=== PATIENT | male | born 1950 | race Caucasian/White ===

== ENCOUNTER → 2017-06-28 | Outpatient (CLI) | payer BC ==
[2017-06-28 07:33] LABS: HCT 45.7 % (39.0-53.0); HGB 15.2 gm/dL (13.0-17.5); MCH 28.7 pg (25.0-35.0); MCHC 33.3 g/dL (31.0-37.0); MCV 86.2 fL (80.0-100.0); Mean Platelet Volume 8.4; Platelet Count 186 k/uL (150-450); RDW 13.8 % (11.5-15.5); WBC 6.4 k/uL (3.8-10.6)
[2017-06-28 09:43] LABS: ALT 43 U/L (21-72); AST 22 U/L (17-59); Alkaline Phosphatase 54 U/L (38-126); Anion Gap 9 mmol/L; Blood Urea Nitrogen 19 mg/dL (9-20); Calcium 9.6 mg/dL (8.4-10.2); Carbon Dioxide 28 mmol/L (22-30); Chloride 107 mmol/L (98-107); Cholesterol 212 mg/dL (<200); Glucose 104 mg/dL (74-99); HDL Cholesterol 32 mg/dL (40-60); LDL Cholesterol,Calculated 150 mg/dL (0-99); Potassium 4.9 mmol/L (3.5-5.1); Sodium 144 mmol/L (137-145); Total Bilirubin 0.3 mg/dL (0.2-1.3); Total Protein 6.7 g/dL (6.3-8.2); Triglycerides 151 mg/dL (<150)
[2017-06-28 10:13] LABS: PSA Annual Screen 1.75 ng/mL (0.00-4.00)
[2017-06-28 11:23] LABS: Hepatitis A Antibody IgM Non-Reactive (Non-Reactive); Hepatitis B Core IgM Non-Reactive (Non-Reactive)
== END | disposition home or self-care (01) ==
LOC: LABWHC1 07:09
PROVIDERS: ATTEND Internal Medicine
DX: E78.5 Hyperlipidemia, unspecified (principal); I10 Essential (primary) hypertension; Z11.59 Encounter for screening for other viral diseases; Z12.5 Encounter for screening for malignant neoplasm of prostate
CPT/HCPCS: 80061; 80053; 80074; 85027; 36415; G0103

== ENCOUNTER → 2018-03-05 | Outpatient (CLI) | payer BC | END | disposition home or self-care (01) | LOC: LABWHC1 10:42 | PROVIDERS: ATTEND Orthopaedic Surgery | DX: Z01.812 Encounter for preprocedural laboratory examination (principal) | CPT/HCPCS: 87070 ==

== ENCOUNTER 2018-03-16 05:40 | Day surgery (SDC) | payer BC ==
[2018-03-06 15:30] VITALS: BMI 32.6
--- NOTE | 2018-03-15 09:40 | HP ---
HISTORY AND PHYSICAL REASON FOR ADMISSION: Surgery 03/16/2018 Marlo Fonseca is a 67-year-old patient seen with symptomatic left knee osteoarthritis. After having treatment options discussed, he elected to proceed with left total knee arthroplasty. Consent regarding the procedure was obtained. Medical clearance provided by Dr. Santiago. PAST MEDICAL HISTORY: Hypertension, gastroesophageal reflux disease. PAST SURGICAL HISTORY: Bilateral shoulder arthroscopy. MEDICATIONS: Atenolol, Prilosec. ALLERGIES: None reported. SOCIAL HISTORY: Patient denies current tobacco use. PHYSICAL EXAMINATION: Evaluation of the left knee range of motion 0 to 120 degrees. There is tenderness along the medial joint line, crepitus along the medial patellofemoral compartments with range of motion. Pain with patellofemoral compression. Ligaments stable. Hip rotation without pain. Distal neurovascular exam intact. RADIOGRAPHS: Left knee radiographs reveal severe medial moderate patellofemoral compartment osteoarthritis. IMPRESSION: 1. Left knee osteoarthritis. 2. Hypertension. PLAN: Left total knee arthroplasty. Surgery scheduled for 03/16/2018. MMODL / IJN: [id number] /
[~2018-03-16 05:40] MED LIST: ACETAMINOPHEN TAB 500 MG TAB PO ONE; DEXAMETHASONE SOD PHOSPHATE 10 MG/ML 1 ML VIAL IV ONE; LACTATED RINGERS 1,000 ML IV SCH; LIDOCAINE 1% 20 ML VIAL (10MG/ML) FOR IV START INTRADERMA PRN; MELOXICAM 7.5 MG TAB PO ONE; MIDAZOLAM 2 MG/2 ML VIAL IV PRN; ONDANSETRON 4 MG/2 ML VIAL IVP ONE; TRANEXAMIC ACID 1,000 MG in SODIUM CHLORIDE 0.9% 50 ML IVPB ONE; ceFAZolin IN SWFI 2 GM/20 ML SYRINGE IVP ONE; fentaNYL (PF) 50 MCG/ML 2 ML AMP IV PRN
[2018-03-16] MEDS ORDERED: MIDAZOLAM 2 MG/2 ML VIAL IV ONE (06:27)
[2018-03-16] MEDS ORDERED: MIDAZOLAM 2 MG/2 ML VIAL ONE ×2 (06:51→07:30)
[2018-03-16] MEDS ORDERED: ONDANSETRON 4 MG/2 ML VIAL ONE (07:24)
[2018-03-16] MEDS ORDERED: ONDANSETRON 4 MG/2 ML VIAL IVP ONE ×2 (07:25→11:53)
[2018-03-16] MEDS ORDERED: DEXAMETHASONE SOD PHOSPHATE 10 MG/ML 1 ML VIAL IV ONE (07:25)
[2018-03-16] MEDS ORDERED: HYDROmorphone (PF) 1 MG/ML ONE (07:30)
[2018-03-16] MEDS ORDERED: SODIUM CHLORIDE 0.9% 100 ML BAG ONE (07:30)
[2018-03-16] MEDS ORDERED: TRANEXAMIC ACID 1,000 MG/10 ML VIAL ONE (07:30)
[2018-03-16] MEDS ORDERED: fentaNYL (PF) 50 MCG/ML 2 ML AMP ONE (07:30)
[2018-03-16] MEDS ORDERED: PROPOFOL 10 MG/ML 20 ML VIAL IV ONE (07:30)
[2018-03-16] MEDS ORDERED: SUCCINYLCHOLINE CHLORIDE 100 MG/5 ML SYR IV ONE (07:30)
[2018-03-16] MEDS ORDERED: DEXAMETHASONE SOD PHOS (MDV) 100 MG/10 ML VIAL ONE (07:30)
[2018-03-16] MEDS ORDERED: LIDOCAINE 1% INJ 10MG/ML (20 ML MDV) ONE (07:30)
[2018-03-16] MEDS ORDERED: ROPIVACAINE 246.25 MG, EPINEPHrine 0.5 MG, KETOROLAC 30 MG, cloNIDine HCL/PF 80 MCG, WA... MISCELLANE ONE ×5 (07:55)
[2018-03-16] MEDS ORDERED: ceFAZolin 3,000 MG in SODIUM CHLORIDE 0.9% IRRIGATIO 3,000 ML IRRIGATION ONE (07:59)
[2018-03-16] MEDS ORDERED: LACTATED RINGERS 1,000 ML IV ONE ×2 (09:07→12:13)
[2018-03-16] MEDS ORDERED: ROPIVACAINE 1,100 MG, SODIUM CHLORIDE 0.9% 330 ML MISCELLANE PRN ×2 (09:14)
[2018-03-16] MEDS ORDERED: HYDROcodone/APAP 7.5-325MG 1 EACH TAB PO PRN (09:27)
[2018-03-16] MEDS ORDERED: HYDROmorphone 1 MG/ML 1 ML SYRINGE IVP PRN ×3 (09:27)
[2018-03-16] MEDS ORDERED: NALOXONE 0.4 MG/ML 1 ML VIAL IV PRN (09:27)
[2018-03-16] MEDS ORDERED: ONDANSETRON 4 MG/2 ML VIAL IVP PRN (09:27)
--- NOTE | 2018-03-16 09:27 | P.OP ---
Date of Procedure: 03/16/18 Preoperative Diagnosis: Left knee osteoarthritis Postoperative Diagnosis: Left knee osteoarthritis Procedure(s) Performed: Left total knee arthroplasty Implants: 1. [place] persona size 10 left cruciate retaining cemented femur 2. [place] persona size G left cemented tibial baseplate 3. [place] persona 10 mm medial congruent polyethylene tibial insert 4. [place] persona 38 mm all polyethylene cemented patella Anesthesia: GETA, regional (Adductor canal block), local Surgeon: Vijay Baldwin [employer] #1: Lobito Watson Estimated Blood Loss (ml): 50 Pathology: other (Bone) Condition: stable Disposition: PACU Indications for Procedure: 67-year-old patient seen with progressive left knee pain. After treatment options were discussed, he elected to proceed with total knee arthroplasty. Operative Findings: see description of procedure Description of Procedure: Patient was taken to the operative suite after having an adductor canal catheter placed by the department of anesthesia for postoperative pain management. Patient underwent a spinal anesthetic by the department of anesthesia. Patient was given preoperative IV intake antibiotics and TXA. A well-padded tourniquet was placed about the left lower extremity. The lower extremity was then prepped and draped in the normal sterile orthopedic fashion. The extremity was elevated, a tourniquet was insufflated to 300. A standard anterior incision was made sharply through skin. Dissection was taken down through the subcutaneous soft tissues down to the extensor mechanism. A medial arthrotomy was performed, patella was everted and knee was flexed. There was advanced osteoarthritis noted. I introduced my distal intramedullary femoral drill. I then introduced the distal femoral cutting jig. Jose COLES secured the cutting jig with 2 pins. I held retractors in position while Jose COLES performed the distal femoral resection through the guide area we now removed her distal femoral cutting guide. We now placed our 4-in-1 femoral cutting block and positioned and it was secured with 2 pins by Jose COLES while I held the block in position. The distal femoral finishing was now completed. A proximal tibial cutting guide was positioned. I held the guide in the appropriate position with both hands well Jose COLES inserted stabilizing pins into the guide. Proximal tibial cut was made. We now placed a trial femoral component into position, along with an appropriate size tibial tray and insert. We now took the knee through range of motion and had full extension good flexion and good overall soft tissue balance noted. The patella was everted and stabilized with 2 towel clips held by Jose COLES while I performed a flush with patellar quad tendon utilizing a fresh sawblade. We templated the patella, appropriate drill holes were made. An appropriate trial patella was positioned, knee was taken through full range of motion with the patella tracking very nicely. The trial patella was removed. Drill holes were made through the femoral component. All trial components were removed after marking off the appropriate rotation of the tibia. Retractors were now positioned along the proximal tibia. An appropriate keel punch was made with the appropriate size tibial guide by myself on Jose COLES assisted by holding retractors. At this point appropriate size implants were chosen and opened. The joint was irrigated copiously with pulse lavage mechanical irrigation. The posterior capsule was infiltrated with local analgesic. The wound was irrigated with pulse lavage mechanical irrigation. We mixed antibiotic methylmethacrylate. We placed the knee into flexion. We placed multiple retractors assisted by Jose COLES to expose the proximal tibia. Once the methyl methacrylate was ready, the tibial component was cemented into place removing any excess methylmethacrylate form by both myself and Jose COLES. The femoral component was cemented into place removing the removing any excess methylmethacrylate performed by both myself and Jose COLES. We then inserted the appropriate size polyethylene tibial insert. We made sure that it was locked into position. We took the knee into full extension, and then back in a flexion making sure we had removed any excess methylmethacrylate. The patellar component was then cemented down and secured with clamp. Excess methylmethacrylate removed. We kept the knee in full extension, patellar clamp in position until methylmethacrylate had hardened. Once it had hardened the patellar clamp was removed. The knee was taken through full range of motion. The patella tracked nicely. There was good soft tissue balancing. The tourniquet was now released. Additional hemostasis was achieved via electrocautery. A second gram of TXA was given. The wound again was irrigated with pulse lavage mechanical irrigation. The superficial soft tissues were infiltrated local analgesic. The extensor mechanism was repaired with Vicryl. We checked the repair with range of motion and it was stable. The subcutaneous soft tissues were repaired with Vicryl in layers. The skin was approximated with pernio/Dermabond. Sterile dressings were applied followed by loose web roll and Braeden bandage. The patient was transferred to a bed, and taken to recovery in stable and satisfactory condition. Jose COLES assisted with this complex procedure.
[2018-03-16] MEDS ORDERED: LACTATED RINGERS 1,000 ML IV SCH (09:30)
[2018-03-16 09:40] VITALS: TEMP 96.8
--- NOTE | 2018-03-16 10:33 | XR ---
EXAMINATION TYPE: XR knee limited LT DATE OF EXAM: 03/16/2018 CLINICAL HISTORY: Left knee pain and arthritis status post total knee replacement. TECHNIQUE: Portable AP and crosstable lateral views of the left knee are obtained immediately postop eratively. COMPARISON: None FINDINGS: Metallic hardware from total left knee arthroplasty is seen and appears satisfactory in al ignment and position. There is evidence of recent surgery with diffuse subcutaneous gas and soft tis nicolas swelling drain noted. IMPRESSION: METALLIC HARDWARE FROM TOTAL LEFT KNEE ARTHROPLASTY IS SATISFACTORY IN ALIGNMENT.
[2018-03-16] MEDS ORDERED: ceFAZolin IN SWFI 2 GM/20 ML SYRINGE IVP ONE (11:00)
--- NOTE | 2018-03-16 13:00 | P.ONQ ---
Anesthesiology Proc Note - PNB - Peripheral Nerve Block Performed Adductor Canal Infusion Time Out Performed: Yes Procedure Start Time: 06:58 Procedure Stop Time: 07:20 Indication: Acute Post-Operative Pain, Requested by physician Sedation Type: Sedate with meaningful contact maintained Preparation: Sterile Dressing Position: Supine Catheter: Indwelling Needle Types: On-Q Needle Size: 100mm (4") Needle Gauge: 21 Technique: Ultrasound Injectate: 0.5% Ropivacaine (see comment for volume) (ropi .5% 30cc) Blood Aspirated: No Pain Paresthesia on Injection Noted: No Resistance on Injection: Normal Events: Uneventful and Well Tolerated
[2018-03-16] MEDS ORDERED: PROMETHAZINE INJ 25 MG/ML 1 ML VIAL IVPB ONE (13:21)
[2018-03-16 14:14] VITALS: BP 144/81; PULSE 78; RESP 16
== END 2018-03-16 15:01 | disposition home health service (06) ==
LOC: OR 05:40
PROVIDERS: ATTEND Orthopaedic Surgery
DX: M17.12 Unilateral primary osteoarthritis, left knee (principal); I10 Essential (primary) hypertension; Z96.652 Presence of left artificial knee joint; K21.9 Gastro-esophageal reflux disease without esophagitis; Z79.899 Other long term (current) drug therapy; Z87.891 Personal history of nicotine dependence; Z87.442 Personal history of urinary calculi; Z79.82 Long term (current) use of aspirin; H91.90 Unspecified hearing loss, unspecified ear
CPT/HCPCS: 97161; 88300; 73560; 27446; C1776; C1713; C1772; J2250; J1100 ×2; J2550; J2405; J0690 ×2; J2001; J3010; J1170; J0330; J2704

== ENCOUNTER → 2018-03-19 | Outpatient (CLI) | payer BC ==
--- NOTE | 2018-03-19 11:00 | US ---
EXAMINATION TYPE: US venous doppler duplex LE LT DATE OF EXAM: 03/19/2018 10:18 AM COMPARISON: NONE CLINICAL HISTORY: Left Leg Swelling R22.42, M79.662 Left Leg Pain. s/p total knee 3 days ago SIDE PERFORMED: Left TECHNIQUE: The lower extremity deep venous system is examined utilizing real time linear array sonog maile with graded compression, doppler sonography and color-flow sonography. VESSELS IMAGED: External Iliac Vein (EIV) Common Femoral Vein Deep Femoral Vein Greater Saphenous Vein * Femoral Vein Popliteal Vein Small Saphenous Vein * Proximal Calf Veins (* superficial vessels) Left Leg: Negative for DVT Grayscale, color doppler, spectral doppler imaging performed of the deep veins of the left lower extr emity. There is normal flow, compressibility, vascular waveforms. IMPRESSION: No sonographic evidence of deep venous thrombosis within the left lower extremity.
== END | disposition home or self-care (01) ==
LOC: RADUSWWP 09:45
PROVIDERS: ATTEND Orthopaedic Surgery
DX: M79.662 Pain in left lower leg (principal); R22.42 Localized swelling, mass and lump, left lower limb

== ENCOUNTER 2018-05-25 08:02 | Day surgery (SDC) | payer BC ==
[2018-05-20 10:05] VITALS: BMI 31.9
--- NOTE | 2018-05-24 17:42 | HP ---
HISTORY AND PHYSICAL Surgery is scheduled for 05/25/2018. Marlo Fonseca is a 68-year-old patient seen with progressive left knee pain. Treatment options were discussed with him. He elected to proceed with left total knee arthroplasty. Consent was obtained. Preoperative clearance had been previously provided. PAST MEDICAL HISTORY: Hypertension, gastroesophageal reflux disease. PAST SURGICAL HISTORY: Left total knee arthroplasty. MEDICATIONS: Atenolol, Prilosec. ALLERGIES: None. SOCIAL HISTORY: Patient denies current tobacco use. PHYSICAL EXAMINATION: Evaluation of the right knee: His range of motion is -2 to 120 degrees. Tenderness along the medial joint line. Crepitus along the medial patellofemoral compartment with range of motion. Ligaments stable. Hip rotation without pain. Distal neurovascular exam is intact. RADIOGRAPHS: Radiographs of the right knee reveal severe medial moderate patellofemoral compartment osteoarthritis. IMPRESSION: 1. Right knee osteoarthritis. 2. Hypertension. PLAN: Right total knee arthroplasty. MMODL / IJN: [id number] /
[~2018-05-25 08:02] MED LIST changes: -LIDOCAINE 1% 20 ML VIAL (10MG/ML) FOR IV START INTRADERMA PRN; +MIDAZOLAM (PF) 2 MG/2 ML VIAL IV PRN; -MIDAZOLAM 2 MG/2 ML VIAL IV PRN; -fentaNYL (PF) 50 MCG/ML 2 ML AMP IV PRN
[2018-05-25] MEDS ORDERED: LIDOCAINE 1% 20 ML VIAL (10MG/ML) FOR IV START INTRADERMA ONE (08:47)
[2018-05-25] MEDS ORDERED: PROPOFOL 10 MG/ML 20 ML VIAL IV ONE (09:47)
[2018-05-25] MEDS ORDERED: PHENYLEPHRINE-0.9% NACL SYG 1 MG/10 ML SYRINGE ONE (09:47)
[2018-05-25] MEDS ORDERED: MIDAZOLAM 2 MG/2 ML VIAL ONE (09:47)
[2018-05-25] MEDS ORDERED: fentaNYL (PF) 50 MCG/ML 2 ML AMP ONE (09:47)
[2018-05-25] MEDS ORDERED: SODIUM CHLORIDE 0.9% 100 ML BAG ONE (09:47)
[2018-05-25] MEDS ORDERED: LIDOCAINE 1% INJ 10MG/ML (20 ML MDV) ONE (09:47)
[2018-05-25] MEDS ORDERED: TRANEXAMIC ACID 1,000 MG/10 ML VIAL ONE (09:47)
[2018-05-25] MEDS ORDERED: SUCCINYLCHOLINE CHLORIDE 100 MG/5 ML SYR IV ONE (09:47)
--- NOTE | 2018-05-25 09:47 | P.ONQ ---
Anesthesiology Proc Note - PNB - Peripheral Nerve Block Performed Right Adductor Canal Infusion Time Out Performed: Yes Procedure Start Time: : Procedure Stop Time: :16 Indication: Acute Post-Operative Pain, Requested by physician Preparation: Sterile Dressing Position: Supine Catheter: Indwelling Needle Types: On-Q Needle Size: 100mm (4") Needle Gauge: 21 Technique: Ultrasound Injectate: 0.5% Ropivacaine (see comment for volume) (ropi .5% 20cc) Blood Aspirated: No Pain Paresthesia on Injection Noted: No Resistance on Injection: Normal Events: Uneventful and Well Tolerated
[2018-05-25] MEDS ORDERED: ROPIVACAINE 246.25 MG, EPINEPHrine 0.5 MG, KETOROLAC 30 MG, cloNIDine HCL/PF 80 MCG, WA... MISCELLANE ONE ×5 (09:51)
[2018-05-25] MEDS ORDERED: ceFAZolin 3,000 MG in SODIUM CHLORIDE 0.9% IRRIGATIO 3,000 ML IRRIGATION ONE (10:20)
[2018-05-25] MEDS ORDERED: LACTATED RINGERS 1,000 ML IV ONE ×2 (11:32)
[2018-05-25] MEDS ORDERED: ONDANSETRON 4 MG/2 ML VIAL IVP PRN (11:45)
[2018-05-25] MEDS ORDERED: LACTATED RINGERS 1,000 ML IV SCH (11:45)
[2018-05-25] MEDS ORDERED: HYDROcodone/APAP 7.5-325MG 1 EACH TAB PO PRN (11:45)
[2018-05-25] MEDS ORDERED: NALOXONE 0.4 MG/ML 1 ML VIAL IV PRN (11:45)
[2018-05-25] MEDS ORDERED: HYDROcodone/APAP 5-325MG 1 EACH TAB PO PRN (11:45)
[2018-05-25] MEDS ORDERED: HYDROmorphone 1 MG/ML 1 ML SYRINGE IVP PRN ×2 (11:45)
[2018-05-25] MEDS ORDERED: HYDROmorphone 0.5 MG/0.5 ML SYRINGE IVP PRN (11:45)
--- NOTE | 2018-05-25 11:45 | P.OP ---
Date of Procedure: 05/25/18 Preoperative Diagnosis: Right knee osteoarthritis Postoperative Diagnosis: Right knee osteoarthritis Procedure(s) Performed: Right total knee arthroplasty Implants: 1. [place] persona size 10 cruciate retaining cemented femur 2. [place] persona size G cemented tibial baseplate 3. [place] persona size G/H 11 mm medial congruent polyethylene tibial insert 4. [place] persona 38 mm all polyethylene cemented patella Anesthesia: GETA, regional (Adductor canal catheter) Surgeon: Vijay Baldwin Hand Or Machine Paster #1: Lobito Watson Estimated Blood Loss (ml): 45 Pathology: other (Bone) Condition: stable Disposition: PACU Indications for Procedure: 68-year-old patient seen with progressive right knee pain. After treatment options discussed, he elected to proceed with total knee arthroplasty. Operative Findings: see description of procedure Description of Procedure: Patient was taken to the operative suite after having an adductor canal catheter placed by the department of anesthesia. Patient underwent a general anesthetic by the department of anesthesia. Patient was given preoperative IV intake antibiotics and TXA. A well-padded tourniquet was placed about the right lower extremity. The lower extremity was then prepped and draped in the normal sterile orthopedic fashion. The extremity was elevated, a tourniquet was insufflated to 300. A standard anterior incision was made sharply through skin. Dissection was taken down through the subcutaneous soft tissues down to the extensor mechanism. A medial arthrotomy was performed, patella was everted and knee was flexed. There was advanced osteoarthritis noted. I introduced my distal intramedullary femoral drill. I then introduced the distal femoral cutting jig. Jose COLES secured the cutting jig with 2 pins. I held retractors in position while Jose COLES performed the distal femoral resection through the guide area we now removed her distal femoral cutting guide. We now placed our 4-in-1 femoral cutting block and positioned and it was secured with 2 pins by Jose COLES while I held the block in position. The distal femoral finishing was now completed. A proximal tibial cutting guide was positioned. I held the guide in the appropriate position with both hands well Jose COLES inserted stabilizing pins into the guide. Proximal tibial cut was made. We now placed a trial femoral component into position, along with an appropriate size tibial tray and insert. We now took the knee through range of motion and had full extension good flexion and good overall soft tissue balance noted. The patella was everted and stabilized with 2 towel clips held by Jose COLES while I performed a flush with patellar quad tendon utilizing a fresh sawblade. We templated the patella, appropriate drill holes were made. An appropriate trial patella was positioned, knee was taken through full range of motion with the patella tracking very nicely. The trial patella was removed. Drill holes were made through the femoral component. All trial components were removed after marking off the appropriate rotation of the tibia. Retractors were now positioned along the proximal tibia. An appropriate keel punch was made with the appropriate size tibial guide by myself on Jose COLES assisted by holding retractors. At this point appropriate size implants were chosen and opened. The joint was irrigated copiously with pulse lavage mechanical irrigation. The posterior capsule was infiltrated with local analgesic. The wound was irrigated with pulse lavage mechanical irrigation. We mixed antibiotic methylmethacrylate. We placed the knee into flexion. We placed multiple retractors assisted by Jose COLES to expose the proximal tibia. Once the methyl methacrylate was ready, the tibial component was cemented into place removing any excess methylmethacrylate form by both myself and Jose COLES. The femoral component was cemented into place removing the removing any excess methylmethacrylate performed by both myself and Jose COLES. We then inserted the appropriate size polyethylene tibial insert. We made sure that it was locked into position. We took the knee into full extension, and then back in a flexion making sure we had removed any excess methylmethacrylate. The patellar component was then cemented down and secured with clamp. Excess methylmethacrylate removed. We kept the knee in full extension, patellar clamp in position until methylmethacrylate had hardened. Once it had hardened the patellar clamp was removed. The knee was taken through full range of motion. The patella tracked nicely. There was good soft tissue balancing. The tourniquet was now released. Additional hemostasis was achieved via electrocautery. A second gram of TXA was given. The wound again was irrigated with pulse lavage mechanical irrigation. The superficial soft tissues were infiltrated local analgesic. The extensor mechanism was repaired with Vicryl. We checked the repair with range of motion and it was stable. The subcutaneous soft tissues were repaired with Vicryl in layers. The skin was approximated with pernio/Dermabond. Sterile dressings were applied followed by loose web roll and Braeden bandage. The patient was transferred to a bed, and taken to recovery in stable and satisfactory condition. Jose COLES assisted with this complex procedure.
[2018-05-25 12:04] VITALS: TEMP 97
[2018-05-25] MEDS: ROPIVACAINE 1,100 MG, SODIUM CHLORIDE 0.9% 500 ML 330 ML MISCELLANE PRN ×4 (12:21→12:36)
--- NOTE | 2018-05-25 12:30 | XR ---
EXAMINATION TYPE: XR knee limited RT DATE OF EXAM: 05/25/2018 COMPARISON: NONE TECHNIQUE: Two views submitted HISTORY: Post op FINDINGS: There is a prosthetic knee in near anatomic alignment. There is soft tissue edema and emphysema. IMPRESSION: 1. Postoperative change. Appears in near-anatomic alignment
[2018-05-25] MEDS ORDERED: KETOROLAC 30 MG/ML 1 ML VIAL IVP ONE (12:31)
[2018-05-25] MEDS: HYDROmorphone 1 MG/ML 1 ML SYRINGE IVP PRN ×4 (12:31→12:54)
[2018-05-25] MEDS ORDERED: PROMETHAZINE INJ 25 MG/ML 1 ML VIAL IVPB ONE (14:07)
[2018-05-25] MEDS ORDERED: fentaNYL (PF) 50 MCG/ML 2 ML AMP IVP ONE (15:18)
[2018-05-25 15:52] VITALS: BP 126/84; PULSE 80; RESP 20
[2018-05-25] MEDS ORDERED: ceFAZolin IN SWFI 2 GM/20 ML SYRINGE IVP ONE (16:00)
== END 2018-05-25 16:36 | disposition home health service (06) ==
LOC: OR 08:02
PROVIDERS: ATTEND Orthopaedic Surgery
DX: M17.11 Unilateral primary osteoarthritis, right knee (principal); I10 Essential (primary) hypertension; K21.9 Gastro-esophageal reflux disease without esophagitis; Z79.899 Other long term (current) drug therapy; Z87.891 Personal history of nicotine dependence; E78.5 Hyperlipidemia, unspecified; Z87.442 Personal history of urinary calculi; Z79.82 Long term (current) use of aspirin
CPT/HCPCS: 97116; 97161; 88300; 73560; 27447; C1776; C1713; C1772; J2250 ×2; J1100; J2550; J2405; J0690 ×2; J2001; J3010; J1885; J1170; J2795; J2370; J0330; J2704

== ENCOUNTER → 2018-10-27 | Outpatient (CLI) | payer MEDICARE ==
--- NOTE | 2018-10-27 10:09 | CT ---
"EXAMINATION TYPE: CT abdomen pelvis wo con DATE OF EXAM: 10/27/2018 COMPARISON: None HISTORY: Right flank pain, gross hematuria, and history of prior renal stones. CT DLP: 1115 mGycm Automated exposure control for dose reduction was used. TECHNIQUE: Helical acquisition of images was performed from the lung bases through the pelvis. FINDINGS: LUNG BASES: The heart is enlarged. Subsegmental changes at the lung bases most typical of atelectasis . LIVER/GB: No significant abnormality is appreciated. PANCREAS: No significant abnormality is seen. SPLEEN: No significant abnormality is seen. ADRENALS: No significant abnormality is seen. KIDNEYS: No hydronephrosis or nephrolithiasis. Nonspecific perinephric edema could be seen with infec tious etiology correlate with urinalysis. Bladder is decompressed and limited in assessment. No obvio us calcifications.. ADENOPATHY: None visualized. OSSEOUS STRUCTURES: Hypertrophic and degenerative change of the spine.. BOWEL: Diverticulosis of the colon is noted and there is mild induration of the fat surrounding sigm oid colon. A mild diverticulitis would be the differential diagnosis. OTHER: Fat-containing periumbilical hernia. Aorta of normal caliber with atherosclerotic changes. IMPRESSION: 1. No evidence of hydronephrosis or nephrolithiasis. 2. Diverticulosis of the colon. Could not exclude a mild sigmoid diverticulitis correlate clinically. 3. Small periumbilical hernia. 4. there is thickening of the wall the gastric antrum which is likely related to incomplete distentio n correlate clinically. A Yellow level critical message alert has been initiated for Matt Salomon MD via the [place] [facility] | Critical Results System on 10/27/2018 10:03 AM. This message alert has been sent to Matt thompson MD via the preferences provided by the clinician for the receipt of Radiology Critical Findings. Message ID [id number]."
== END | disposition home or self-care (01) ==
LOC: RADCTMAIN 09:21
PROVIDERS: ATTEND Urology
DX: K57.30 Diverticulosis of large intestine without perforation or abscess without bleeding (principal); K42.9 Umbilical hernia without obstruction or gangrene; K31.89 Other diseases of stomach and duodenum; R31.0 Gross hematuria; Z87.442 Personal history of urinary calculi
CPT/HCPCS: 74176

== ENCOUNTER → 2020-03-08 | Outpatient (CLI) | payer MEDICARE ==
--- NOTE | 2020-03-08 12:27 | MR ---
EXAMINATION TYPE: MR shoulder RT wo con DATE OF EXAM: 03/08/2020 COMPARISON: X-ray 01/26/2020 HISTORY: Rt shoulder pain, Prior rt shoulder surgery TECHNIQUE: Multiplanar, multisequence imaging of the right shoulder is performed without contrast. FINDINGS: Severe arthropathy of the AC joint with reactive marrow changes involving the clavicle and acromion. There is mass effect and impingement of the supraspinatus muscle and tendon. There is no ev idence of through thickness tear or retraction. There is intrasubstance signal involving the undersur face of the infraspinatus tendon measuring approximately 6 mm. There is bursal scuffing involving the distal margin insertion of the supraspinatus tendon. Tiny cysts are seen involving the humeral head likely in the basis of chronic impingement. There is a small cyst inferior to the inferior glenohumeral ligament appears separate from the labrum along the posterior margin of the body of the scapula could represent a small ganglion cyst measurin g 1 cm. The biceps tendon is situated within bicipital groove and there is increased signal surrounding the t endon compatible with tendinosis. Bony labrum are grossly intact by nonarthrogram technique. IMPRESSION: 1. Severe AC joint arthropathy with impingement and tendinosis of the supraspinatus and infraspinatus tendons. There is bursal scuffing along the distal margin insertion of the supraspinatus tendon but no evidence of through thickness tear or retraction. 2. Tendinosis distal margin infraspinatus tendon with 6 mm partial undersurface tear. No through thic kness tear or retraction. 3. Bicipital tendinosis. 4. 1 cm cystic structure along the lower margin of the joint space differential diagnosis includes a small para labral cyst or ganglion cyst. Occult inferior labral tear in the differential diagnosis..
== END | disposition home or self-care (01) ==
LOC: RADMRIMAIN 10:59
PROVIDERS: ATTEND Orthopaedic Surgery
DX: M12.811 Other specific arthropathies, not elsewhere classified, right shoulder (principal)

== ENCOUNTER → 2020-04-10 | Outpatient (CLI) | payer MEDICARE ==
[2020-04-10 09:38] LABS: Basophils # (A) 0.1 k/uL (0-0.2); Basophils % (A) 1 %; Eosinophils # (A) 0.2 k/uL (0-0.7); Eosinophils % (A) 4 %; HCT 47.5 % (39.0-53.0); HGB 15.1 gm/dL (13.0-17.5); Lymphocytes # (A) 1.8 k/uL (1.0-4.8); Lymphocytes % (A) 31 %; MCH 29.5 pg (25.0-35.0); MCHC 31.9 g/dL (31.0-37.0); MCV 92.7 fL (80.0-100.0); Mean Platelet Volume 8.6; Monocytes # (A) 0.3 k/uL (0-1.0); Monocytes % (A) 5 %; Neutrophils # (A) 3.4 k/uL (1.3-7.7); Neutrophils % (A) 58 %; Platelet Count 171 k/uL (150-450); RBC 5.13 m/uL (4.30-5.90); RDW 13.1 % (11.5-15.5); WBC 5.9 k/uL (3.8-10.6)
[2020-04-10 09:49] LABS: Potassium 4.4 mmol/L (3.5-5.1)
== END | disposition home or self-care (01) ==
LOC: LABPAT 08:49
PROVIDERS: ATTEND Orthopaedic Surgery
DX: M75.41 Impingement syndrome of right shoulder (principal)
CPT/HCPCS: 36415; 80051; 85025; 93005

== ENCOUNTER 2020-04-19 05:43 | Day surgery (SDC) | payer MEDICARE ==
[2020-04-18 08:19] VITALS: BMI 33.3
--- NOTE | 2020-04-18 12:22 | HP ---
HISTORY AND PHYSICAL DATE OF SURGERY: 04/19/2020 Marlo Fonseca is a 70-year-old gentleman seen with progressive right shoulder pain. We discussed options for treatment. He elected to proceed with arthroscopy. Consent regarding procedure was obtained. PAST MEDICAL HISTORY: Hypertension, gastroesophageal reflux disease. PAST SURGICAL HISTORY: Right total knee arthroplasty, left total knee arthroplasty. DAILY MEDICATIONS: Aspirin, atenolol, omeprazole. ALLERGIES: None. SOCIAL HISTORY: Denies current tobacco use. PHYSICAL EVALUATION OF THE RIGHT SHOULDER: Flexion is 140 degrees, abduction is 120 degrees, external rotation is 40 degrees with pain and weakness. There is tenderness along the anterior lateral acromion rotator cuff insertion site. Impingement sign is positive at 90 degrees. Drop-arm sign is positive. Distal neurovascular exam is intact. RADIOGRAPHS: Radiographs of the right shoulder revealed a type 2 anterior acromion, cystic changes of the greater tuberosity. An MRI of the right shoulder revealed a partial rotator cuff tendon tear, acromioclavicular joint osteoarthritis and bicipital tendinitis. IMPRESSION: 1. Right shoulder impingement with rotator cuff tear. 2. Right shoulder acromioclavicular joint osteoarthritis. 3. Right shoulder bicipital tendinitis. 4. Hypertension. 5. Gastroesophageal reflux disease. PLAN: Right shoulder arthroscopy, subacromial decompression, arthroscopic rotator cuff repair, biceps tendon release, Jhonny procedure and debridement. MMODL / IJN: [id number] /
[~2020-04-19 05:43] MED LIST changes: -ACETAMINOPHEN TAB 500 MG TAB PO ONE; -DEXAMETHASONE SOD PHOSPHATE 10 MG/ML 1 ML VIAL IV ONE; +LIDOCAINE 1% (10MG/ML) FOR IV START INTRADERMA PRN; -MELOXICAM 7.5 MG TAB PO ONE; -MIDAZOLAM (PF) 2 MG/2 ML VIAL IV PRN; +MIDAZOLAM 2 MG/2 ML VIAL IV PRN; -TRANEXAMIC ACID 1,000 MG in SODIUM CHLORIDE 0.9% 50 ML IVPB ONE; -ceFAZolin IN SWFI 2 GM/20 ML SYRINGE IVP ONE; +fentaNYL (PF) 50 MCG/ML 2 ML AMP IVP PRN
[2020-04-19] MEDS ORDERED: DEXAMETHASONE SOD PHOSPHATE 4 MG/ML 1 ML VIAL IVP ONE (06:42)
[2020-04-19 07:07] VITALS: RESP 16
[2020-04-19] MEDS ORDERED: MIDAZOLAM 2 MG/2 ML VIAL ONE (07:24)
[2020-04-19] MEDS ORDERED: LIDOCAINE 1% INJ 10MG/ML (20 ML MDV) ONE (07:24)
[2020-04-19] MEDS ORDERED: ePHEDrine SULFATE/0.9% NACL/PF 50 MG/5 ML SYRINGE IV ONE (07:24)
[2020-04-19] MEDS ORDERED: ROPIVACAINE 5 MG/ML 30 ML VIAL ONE (07:24)
[2020-04-19] MEDS ORDERED: DEXAMETHASONE SOD PHOSPHATE 4 MG/ML 1 ML VIAL ONE (07:24)
[2020-04-19] MEDS ORDERED: SUCCINYLCHOLINE CHLORIDE 100 MG/5 ML SYR IV ONE (07:24)
[2020-04-19] MEDS ORDERED: PROPOFOL 10 MG/ML 20 ML VIAL IV ONE (07:24)
--- NOTE | 2020-04-19 08:40 | P.ANPRN ---
Procedure Note - Anesthesia - Nerve Block Performed Right Interscalene Time Out Performed: Yes (06:50) Date of Procedure: 04/19/20 Procedure Start Time: :50 Procedure Stop Time: 07:06 Location of Patient: PreOp Indication: Acute Post-Operative Pain, Requested by Surgeon (Dr Baldwin) Sedation Type: Sedate with meaningful contact maintained Preparation: Sterile Prep Position: Supine Catheter: None Needle Types: Pajunk Needle Gauge: Other (see comment) (22g) Ultrasound used to visualize needle placement: Yes Ultrasound used to observe medication spread: Yes Injectate: 0.5% Ropivacaine (see comment for volume) (20cc + Decadron 4mg) Blood Aspirated: No Pain Paresthesia on Injection Noted: No Resistance on Injection: Normal Image Stored and Saved: Yes Events: Uneventful and Well Tolerated
[2020-04-19 09:13] VITALS: TEMP 96.9
--- NOTE | 2020-04-19 09:20 | P.OP ---
Date of Procedure: 04/19/20 Preoperative Diagnosis: Right shoulder impingement Postoperative Diagnosis: 1. Right shoulder rotator cuff tear 2. Right shoulder impingement 3. Right shoulder acromioclavicular joint osteoarthritis 4. Right shoulder partial long head biceps tendon tear 5. Right shoulder superficial labral tear 6. 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 Right shoulder arthroscopic rotator cuff repair 2. Right shoulder arthroscopic subacromial decompression 3. Right shoulder arthroscopic Jhonny procedure 4. Right shoulder arthroscopic biceps tenotomy 5. Right shoulder arthroscopic debridement labral tear Implants: 14.75 Arthrex a lock anchor Anesthesia: GETA, regional (Interscalene block) Surgeon: Vijay Baldwin Personnel Coordinator #1: Lobito Watson Estimated Blood Loss (ml): 11 Pathology: none sent Condition: stable Disposition: PACU Indications for Procedure: 70-year-old gentleman seen with progressive right shoulder pain. After treatment options were discussed, he elected to proceed with arthroscopy. Operative Findings: See description of procedure Description of Procedure: Patient underwent an interscalene block by department of anesthesia. The patient was then taken to the operative suite. The patient underwent a general anesthetic by the department of anesthesia. The patient was placed into a lateral position and secured. There was appropriate padding of the bony prominence. Right shoulder was then prepped and draped in normal sterile orthopedic fashion. We placed the extremity in 10 pounds of longitudinal traction. A posterior incision was now made for a posterior working portal site. The trocar and cannula were inserted into the glenohumeral joint. Arthroscopy was initiated. Spinal needle was now inserted anteriorly, to ascertain the anterior working portal site. An incision was now made in that area, a trocar was inserted followed by a probe. There were grade 3 chondromalacia changes of the glenoid fossa. There was partial tearing and hyperemia long head biceps tendon. There was some superficial tearing of the superior and anterior labrum. I performed an arthroscopic biceps tenotomy. I debrided the labral tear. The residual labrum was probed and found to be stable. Instruments were now removed from glenohumeral jointB Utilizing the posterior working portal site, the trocar and cannula were inserted into the subacromial space. Arthroscopy initiated. I made an incision 2 fingerbreadths lateral to the acromion. I introduced my trocar followed by my ArthroCare ablator. I now began ablating thick subacromial bursal tissue, which exposed the undersurface of the anterior acromion. There was diminished subacromial space. There was a very prominent anterior acromion. A motorized bur was introduced and a subacromial decompression was performed. I also excised some osteophytes off the inferior aspect of the distal clavicle. The AC joint was visualized and noted to be fairly arthritic. The motorized bur was introduced in the anterior portal site and a Jhonny procedure was performed without difficulty, decompressing the AC joint nicely. I turned my attention to the rotator cuff. There appeared be some partial tearing along the distal supraspinatus. Upon probing area there was evidence for a full-thickness perforation I now introduced a motorized shaver and debrided the margins gained down to stable tendon tissue. The defect measured 1.5 cm. I abraded the footprint with a motorized bur. I passed 3 everted mattress sutures through good bites of rotator cuff tendon. I punched the hole in the abraded footprint area for insertion of anchor. All 6 limbs of suture were now passed through the eyelet of a 4.75 Arthrex swivel lock anchor. I now introduced the eyelet into the pre-punched hole. I held it in position while Jose COLES tensioned all 6 limbs of suture deployed the anchor with good fixation noted. All residual suture limbs were now clipped. We had good compression of the tendon along the entire footprint. I injected 1 mL Renyte intra-articularly. Instruments now removed from the portal sites. All portal sites were approximated with nylon suture. Sterile dressings were applied followed by a shoulder sling. Lobito COLES assisted in this complex case. The patient was awakened, transferred to a bed, and taken to recovery in stable condition.
[2020-04-19 10:04] VITALS: BP 134/84; PULSE 67
== END 2020-04-19 10:42 | disposition home or self-care (01) ==
LOC: OR 05:43
PROVIDERS: ATTEND Orthopaedic Surgery
DX: M75.121 Complete rotator cuff tear or rupture of right shoulder, not specified as traumatic (principal); M19.011 Primary osteoarthritis, right shoulder; M75.21 Bicipital tendinitis, right shoulder; M25.811 Other specified joint disorders, right shoulder; S43.431A Superior glenoid labrum lesion of right shoulder, initial encounter; M75.41 Impingement syndrome of right shoulder; S46.111A Strain of muscle, fascia and tendon of long head of biceps, right arm, initial encounter; M94.211 Chondromalacia, right shoulder; I10 Essential (primary) hypertension; E78.5 Hyperlipidemia, unspecified; K21.9 Gastro-esophageal reflux disease without esophagitis; Z87.442 Personal history of urinary calculi; Z79.82 Long term (current) use of aspirin; Z79.899 Other long term (current) drug therapy; Z96.653 Presence of artificial knee joint, bilateral
CPT/HCPCS: 64415; 76942; 29824; 29826; 29827; C1713; Q4212; J2250; J1100; J0690; J2405; J2001; J3010; J2795; J0330; J2704

== ENCOUNTER 2020-08-28 14:28 | Day surgery (SDC) | payer MEDICARE ==
[2020-08-24 10:03] VITALS: BMI 33.7
--- NOTE | 2020-08-27 15:07 | HP ---
HISTORY AND PHYSICAL Marlo Fonseca is a 70-year-old gentleman seen with right shoulder adhesive capsulitis and history of previous arthroscopic rotator cuff repair. We discussed options. He elected to proceed with manipulation under anesthesia of the right shoulder with steroid injection. Consent was obtained. PAST MEDICAL HISTORY: Hypertension, gastroesophageal reflux disease. PAST SURGICAL HISTORY: Bilateral total knee arthroplasty, right shoulder arthroscopy. MEDICATIONS: Atenolol, omeprazole, aspirin. ALLERGIES: NONE. SOCIAL HISTORY: Denies current tobacco use. PHYSICAL EXAMINATION: Evaluation of the right shoulder, he has previous well-healed arthroscopic portal sites. He flexes to 140, abduct to 130, external rotation is 30. Distal neurovascular exam is intact. RADIOGRAPHS: Right shoulder radiographs revealed conversion to a flat anterior acromion. IMPRESSION: 1. Right shoulder adhesive capsulitis. 2. History of right shoulder arthroscopic rotator cuff repair. 3. Hypertension. 4. Gastroesophageal reflux disease. PLAN: Manipulation under anesthesia right shoulder with steroid injection. MMODL / IJN: [id number] /
[~2020-08-28 14:28] MED LIST changes: +DEXAMETHASONE SOD PHOSPHATE 4 MG/ML 1 ML VIAL IV ONE; +HYDROmorphone 0.5 MG/0.5 ML SYRINGE IVP PRN; -LIDOCAINE 1% (10MG/ML) FOR IV START INTRADERMA PRN; -MIDAZOLAM 2 MG/2 ML VIAL IV PRN; -fentaNYL (PF) 50 MCG/ML 2 ML AMP IVP PRN
[2020-08-28 14:46] VITALS: TEMP 97.5
[2020-08-28] MEDS ORDERED: HYDROmorphone (PF) 1 MG/ML ONE (15:27)
[2020-08-28] MEDS ORDERED: PROPOFOL 10 MG/ML 20 ML VIAL IV ONE (15:27)
--- NOTE | 2020-08-28 15:36 | P.OP ---
Date of Procedure: 08/28/20 Preoperative Diagnosis: Right shoulder adhesive capsulitis Postoperative Diagnosis: Right shoulder adhesive capsulitis Procedure(s) Performed: Right shoulder manipulation under anesthesia with steroid injection Anesthesia: MAC, local Surgeon: Vijay Baldwin Estimated Blood Loss (ml): 0 Pathology: none sent Condition: stable Disposition: PACU Indications for Procedure: 70-year-old gentleman seen with persistent right shoulder adhesive capsulitis after previously having undergone arthroscopic rotator cuff repair. After options for treatment were discussed, he elected to proceed with manipulation under anesthesia with steroid injection Operative Findings: see description of procedure Description of Procedure: Patient was taken to monitored anesthesia area. He received IV sedation by the department of anesthesia. Once sufficient anesthesia was noted I performed a manipulation of the right shoulder achieving full range of motion with audible tearing of the adhesions. The anterior aspect of the shoulder was prepped and draped in the normal sterile orthopedic fashion. I injected solution of 1 mL Depo-Medrol and 3 mL quarter percent plain Marcaine intra-articular under sterile technique. A sterile Band-Aid was applied. The shoulder was taken through range of motion again. The patient was awakened having tolerated procedure well.
[2020-08-28] MEDS ORDERED: methylPREDNISolone ACETATE 80 MG/ML 1 ML VIAL MISCELLANE ONE (15:38)
[2020-08-28] MEDS ORDERED: BUPIVACAINE (PF) 0.25% 30 ML VIAL MISCELLANE ONE (15:38)
[2020-08-28 15:45] VITALS: RESP 16
[2020-08-28 16:10] VITALS: BP 177/87; PULSE 53
== END 2020-08-28 16:49 | disposition home or self-care (01) ==
LOC: OR 14:28
PROVIDERS: ATTEND Orthopaedic Surgery
DX: M75.01 Adhesive capsulitis of right shoulder (principal); I10 Essential (primary) hypertension; K21.9 Gastro-esophageal reflux disease without esophagitis; I25.10 Atherosclerotic heart disease of native coronary artery without angina pectoris; E78.5 Hyperlipidemia, unspecified; M19.90 Unspecified osteoarthritis, unspecified site; H91.90 Unspecified hearing loss, unspecified ear; Z98.890 Other specified postprocedural states; Z96.653 Presence of artificial knee joint, bilateral; Z79.899 Other long term (current) drug therapy; Z79.1 Long term (current) use of non-steroidal anti-inflammatories (NSAID); Z91.89 Other specified personal risk factors, not elsewhere classified
CPT/HCPCS: 23700; J1040; J1100; J2405; J1170; J2704

== ENCOUNTER → 2021-10-24 | Outpatient (CLI) | payer MEDICARE | END | disposition home or self-care (01) | LOC: RADNMMAIN 08:48 | PROVIDERS: ATTEND Family Medicine | DX: Z53.9 Procedure and treatment not carried out, unspecified reason (principal) ==

== ENCOUNTER → 2021-11-02 | Outpatient (CLI) | payer MEDICARE ==
--- NOTE | 2021-11-03 02:52 | MR ---
EXAMINATION TYPE: MR brain wo/w con DATE OF EXAM: 11/02/2021 COMPARISON: None HISTORY: Dizziness CONTRAST: Standard multiplanar, multisequence MRI departmental protocol images were obtained without contrast a nd with 10 mL intravenous Gadavist gadolinium contrast. Diffusion images show no sign of an acute infarct. There is mild cerebral cortical atrophy. There is no mass effect or midline shift. Diffusion images show scattered small white matter high signal foci at the molina-white matter junction both cerebral hemispheres. Total number is approximately 15 and the se measure less than 5 mm. The brainstem is intact. Corpus callosum is intact. Sella turcica is intac t. No evidence of orbital mass. There is metal artifact from the left globe. There is normal enhancement of the venous sinuses. There is no pathologic intracranial enhancement. N o evidence of posterior fossa mass. Internal auditory canals appear normal. IMPRESSION: Mild atrophy. Scattered small white matter peripheral high signal foci without enhancement are sugges tive of microvascular ischemia.
== END | disposition home or self-care (01) ==
LOC: RADMRIMAIN 16:27
PROVIDERS: ATTEND Family Medicine
DX: G31.9 Degenerative disease of nervous system, unspecified (principal)
CPT/HCPCS: 70553; A9585

== ENCOUNTER → 2021-12-26 | Outpatient (CLI) | payer MEDICARE ==
--- NOTE | 2021-12-26 10:47 | CA ---
Stress Echo Report Marlo Fonscea Age: 71 Gender: M : 1950 Exam Date: 12/26/2021 09:14 Exam Location: [facility] Ht (in): 68 Wt (lb): 216 Ordering Physician: Saeid Arriaga Referring Physician: SAEID ARRIAGA,, Vineyardist: Tiesha Cullen RDCS Technologist Procedure CPT: Indication: R06.02 SOB on exertion ICD-9 Codes: Rhythm: Patient History: Cardiac Medications: Medications in past 24 hours: Contrast: Stress Results Protocol: Jan Total dose(mL): Exercise Duration (min:sec): [address] Depression (mm): Angina Score: Quinones Score: METS: 10.3 Resting HR: 63 Resting BP: 143 / 75 Peak HR: 135 Peak BP: 212 / 79 Max Predicted HR: 151 89 % Max Predicted HR Target HR: 128 Double Product: 60925 Stress Summary: BP Response: Reason for Termination: Cardiac Symptoms: ECG Analysis Resting ECG: Stress ECG: Arrhythmia: Echo Analysis Resting Echo: Peak Echo Analysis: MEASUREMENTS (Male/Female) Normal Values CONCLUSIONS Patient underwent exercise stress echo with a Jan protocol treadmill stress test. Patient exercised into Stage 3 for a total of 9 minutes and 1 second reaching a total of 10.3 METS. Patient's maximum heart rate was 135 which represented 89 % age- predicted maximum heart rate. Stress EKG portion: At baseline patient's EKG showed normal sinus rhythm, normal axis, T-wave inversion in lead 3, no significant ST or T wave abnormalities. At peak exercise, EKG showed 0.5-1.[address] depressions V3 through V6. Stress echo portion: 2-D echocardiogram was performed in the parasternal long, personal short, apical 2 and apical four-chamber views at rest, peak exercise and in recovery. At baseline, echocardiogram showed left ventricular ejection fraction 55% without wall motion abnormalities. With peak exercise, echocardiogram shows mid to apical inferior septal and mid inferior hypokinesis consistent with ischemia. Conclusions: 1. Abnormal stress echo with inducible inferior, inferoseptal ischemia 2. Good exercise capacity. 3. Normal left ventricular ejection fraction 55% Dr. Elmer Mendoza DO (Electronically Signed) Final Date: 26 December 2021 10:46
== END | disposition home or self-care (01) ==
LOC: RADNMMAIN 08:52
PROVIDERS: ATTEND Family Medicine
DX: R93.1 Abnormal findings on diagnostic imaging of heart and coronary circulation (principal)
CPT/HCPCS: 93351

== ENCOUNTER → 2022-02-04 | Outpatient (CLI) | payer MEDICARE ==
[2022-02-04 18:38] LABS: HCT 40.1 % (39.6-50.0); HGB 13.2 g/dL (13.0-17.0); MCH 28.9 pg (27.0-32.0); MCHC 32.9 g/dL (32.0-37.0); MCV 87.7 fL (80.0-97.0); Mean Platelet Volume 11.4 fL (9.5-12.2); NRBC Per 100 WBC 0 /100 WBCS (0.0-0.0); Platelet Count 184 X 10*3/uL (140-440); RBC 4.57 X 10*6/uL (4.40-5.60); RDW 13.3 % (11.5-14.5); WBC 5.89 X 10*3/uL (4.50-10.00)
[2022-02-04 18:56] LABS: African American GFR (CKD) 82.6 (60.0-200.0); Anion Gap 8.7 mmol/L (10.00-18.00); Blood Urea Nitrogen 22.9 mg/dL (9.0-27.0); Carbon Dioxide 23.8 mmol/L (20.0-27.5); Non-African American GFR(CKD) 71.3 (60.0-200.0); Potassium 4.5 mmol/L (3.5-5.5)
== END | disposition home or self-care (01) ==
LOC: LABPAT 13:54
PROVIDERS: ATTEND Internal Medicine Interventional Cardiology
DX: Z01.812 Encounter for preprocedural laboratory examination (principal); I10 Essential (primary) hypertension; E78.2 Mixed hyperlipidemia; R06.09 Other forms of dyspnea
CPT/HCPCS: 80051; 82565; 84520; 85027

== ENCOUNTER → 2022-02-13 | Day surgery (SDC) | payer MEDICARE ==
[2022-02-12 10:50] VITALS: BMI 32.1
[~2022-02-13] MED LIST changes: +ALPRAZolam 0.25 MG TAB PO PRN; +ALPRAZolam 0.5 MG TAB PO PRN; +ASPIRIN 325 MG TAB PO STA; +ASPIRIN 81 MG PO SCH; +ATORVASTATIN 40 MG TAB PO SCH; +ATORVASTATIN 80 MG TAB PO STA; -DEXAMETHASONE SOD PHOSPHATE 4 MG/ML 1 ML VIAL IV ONE; +HEPARIN SODIUM 1,000 UN/ML (10ML VL) IVP ONE; +HEPARIN SODIUM,PORCINE 10,000 UNIT in SODIUM CHLORIDE 0.9% 1,000 ML IRRIGATION PRN; +HEPARIN SODIUM,PORCINE 2,500 UNIT in SODIUM CHLORIDE 0.9% 250 ML IRRIGATION PRN; -HYDROmorphone 0.5 MG/0.5 ML SYRINGE IVP PRN; +IOPAMIDOL-370 125ML BTL INJ ONE; -LACTATED RINGERS 1,000 ML IV SCH; +LIDOCAINE 1% INJ 10MG/ML (30 ML VIAL-PF) SQ ONE; +MIDAZOLAM 2 MG/2 ML VIAL IVP ONE; +NITROGLYCERIN SL TABS 0.4 MG TAB SUBLINGUAL PRN; +NON FORMULARY DRUG (Vit C/E/Zn/Coppr/Lutein/Zeaxan [Preservision Areds 2 Softgel] 1 EACH C PO SCH; -ONDANSETRON 4 MG/2 ML VIAL IVP ONE; +PANTOPRAZOLE 40 MG TABLET PO SCH; +RX INFO: IV CONTRAST WAS GIVEN 1 EACH MISC MISCELLANE PRN; +SODIUM CHLORIDE 0.9% 1,000 ML IV SCH; +SODIUM CHLORIDE 0.9% 1,000 ML in EMPTY BAG 1 BAG IV SCH; +VERAPAMIL SYRINGE (5 MG/10 ML) INTRAARTER ONE; +amLODIPine 10 MG TAB PO SCH; +atenoloL 25 MG TAB PO SCH; +fentaNYL (PF) 50 MCG/ML 2 ML AMP IVP ONE
[2022-02-13 06:54] VITALS: BP 135/80; PULSE 56; RESP 16; TEMP 98.1
--- NOTE | 2022-02-13 09:40 | CC ---
CARDIAC CATHETERIZATION REPORT HISTORY OF PRESENT ILLNESS: Mr. Fonseca is a 71-year-old male with a history of hypertension, hyperlipidemia, who has been complaining of dyspnea and fatigue, had an abnormal stress echocardiogram in view of that, recommendation given for cardiac catheterization. The procedure as well as risks and complications were discussed with the patient who is in agreement. PROCEDURE DESCRIPTION: Patient was brought to soap slabber in a fasting, semi sedated state after receiving fentanyl and Benadryl. Using Xylocaine anesthesia associated technique, a 6- Italian sheath was introduced in the right radial artery. Selective right and left coronary angiography performed using 5-Italian 3-1/2 bend Dell catheter, multiple views including hemiaxial views were obtained following that catheter and sheath were removed. Hemostasis was obtained with deployment of a TR band. There was no immediate complication. Patient is returned to his room in stable condition. Of note, the patient received 5000 units of intravenous heparin as well as intra-arterial verapamil. FINDINGS: Left Main: This is a short-sized vessel bifurcating into left circumflex, left anterior descending artery, left main coronary artery, has no evidence of high- grade stenosis. Left Anterior Descending Artery: This vessel is totally occluded at the takeoff of the first diagonal branch with no significant antegrade flow. There is a large diagonal branch that has a 90% stenosis at the takeoff. Left Circumflex: This is a large nondominant vessel giving rise to a large obtuse marginal branch, the left circumflex as well as branches have no evidence of obstructive coronary disease. Right Coronary Artery: This is a large dominant vessel, bifurcating into PDA post large segment and branches, the right coronary artery and its branches have no evidence of obstructive coronary disease. Collaterals there is evidence of ipsilateral and contralateral collaterals feeding the LAD. CONCLUSION: 1. 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 2. Ipsilateral and contralateral collaterals to the left anterior descending artery. 3. No significant obstructive disease in the left circumflex and the right coronary artery. 4. Right dominance. RECOMMENDATIONS: In view of findings and anatomy, I recommended continued medical therapy at this time and patient will be evaluated for coronary artery bypass grafting versus attempt to recannulize chronic total occlusion of the LAD. Those findings and recommendations were discussed with the patient his family, who are in full understanding and agreement. Duration of sedation 23 minutes. MMODL / IJN: [id number] / RACHEL
== END | disposition home or self-care (01) ==
LOC: CATHCVL 06:17
PROVIDERS: ATTEND Internal Medicine Interventional Cardiology
DX: I25.82 Chronic total occlusion of coronary artery (principal); U07.1 COVID-19; I10 Essential (primary) hypertension; E78.2 Mixed hyperlipidemia; Z96.659 Presence of unspecified artificial knee joint; Z87.891 Personal history of nicotine dependence; Z79.899 Other long term (current) drug therapy
CPT/HCPCS: 93454; 87635; J2250; J2001; J3010; J1644; Q9967

== ENCOUNTER → 2022-03-26 | Outpatient (CLI) | payer MEDICARE ==
[2022-03-26 10:16] LABS: Partial Thromboplastin Time 23.9 sec (22.0-30.0); Prothrombin Time 10.5 sec (9.0-12.0)
--- NOTE | 2022-03-26 10:27 | P.PN ---
Progress Note - Text Progress Note Date: 03/26/22 5 meter walk test completed, patient tolerated without difficulty: #1 3.73 sec #2 3.45 sec #3 3.97 sec
--- NOTE | 2022-03-26 12:20 | US ---
EXAMINATION TYPE: US carotid duplex BILAT DATE OF EXAM: 03/26/2022 COMPARISON: NONE CLINICAL HISTORY: OPEN HEART. Preop TECHNIQUE: Carotid duplex ultrasound examination. Indirect Doppler criteria was utilized. FINDINGS: EXAM MEASUREMENTS: RIGHT: Peak Systolic Velocity (PSV) cm/sec ----- Right CCA: 77.9 ----- Right ICA: 65.9 ----- Right ECA: 56.6 ICA/CCA ratio: 0.8 RIGHT: End Diastole cm/sec ----- Right CCA: 15.4 ----- Right ICA: 18.8 ----- Right ECA: 5.6 LEFT: Peak Systolic Velocity (PSV) cm/sec ----- Left CCA: 81.7 ----- Left ICA: 51.2 ----- Left ECA: 65.5 ICA/CCA ratio: 0.6 LEFT: End Diastole cm/sec ----- Left CCA: 17.1 ----- Left ICA: 15.7 ----- Left ECA: 9.7 VERTEBRALS (direction of flow): Right Vertebral: Antegrade Left Vertebral: Antegrade Rhythm: Normal IMPRESSION: No significant hemodynamic stenosis by carotid Doppler ultrasound Criteria for Assigning % of Stenosis / Diameter reduction (Estimation based on the indirect measurements of the internal carotid artery velocities (ICA PSV). 1. Normal (no stenosis)=ICA PSV < 125 cm/s: ratio < 2.0: ICA EDV<40 cm/s. 2. Less than 50% stenosis=ICA PSV < 125 cm/s: ratio < 2.0: ICA EDV<40 cm/s. 3. 50 to 69% stenosis=ICA PSV of 125 to 230 cm/s: ration 2.0 ? 4.0: ICA EDV 40-100 cm/s. 4. Greater than 70% stenosis to near occlusion= ICA PSV > 230 cm/s: ratio > 4.0: ICA EDV > 100 cm/s. 5. Near occlusion= ICA PSV velocities may be low or undetectable: variable ratio and ICA EDV. 6. Total occlusion=unable to detect flow.
--- NOTE | 2022-03-26 12:22 | XR ---
EXAMINATION TYPE: XR chest 2V DATE OF EXAM: 03/26/2022 COMPARISON: None TECHNIQUE: PA and lateral views submitted. HISTORY: Preop FINDINGS: The lungs are clear and there is no pneumothorax, pleural effusion, or focal pneumonia. Rib cage de formity noted laterally. Hypertrophic change of the spine. Heart size normal with no failure. IMPRESSION: 1. No acute process.
[2022-03-26 14:24] LABS: Basophils # (A) 0.04 X 10*3/uL (0.00-0.10); Basophils % (A) 0.7 %; Eosinophils # (A) 0.19 X 10*3/uL (0.04-0.35); Eosinophils % (A) 3.3 %; HCT 42.5 % (39.6-50.0); HGB 14.1 g/dL (13.0-17.0); Immature Grans, Automated 0.2 %; Lymphocytes # (A) 1.76 X 10*3/uL (0.90-5.00); Lymphocytes % (A) 30.1 %; MCH 29.3 pg (27.0-32.0); MCHC 33.2 g/dL (32.0-37.0); MCV 88.2 fL (80.0-97.0); Mean Platelet Volume 11.4 fL (9.5-12.2); Monocytes # (A) 0.34 X 10*3/uL (0.20-1.00); Monocytes % (A) 5.8 %; NRBC Per 100 WBC 0 /100 WBCS (0.0-0.0); Neutrophils % (A) 59.9 %; Platelet Count 189 X 10*3/uL (140-440); RBC 4.82 X 10*6/uL (4.40-5.60); RDW 12.8 % (11.5-14.5); WBC 5.84 X 10*3/uL (4.50-10.00)
[2022-03-26 15:03] LABS: Appearance,Urine Clear (Clear); Bilirubin,Urine Negative (Negative); Blood,Urine Negative (Negative); Color,Urine Yellow (Yellow); Ketones,Urine Trace mg/dL (Negative); Nitrite,Urine Negative (Negative); Specific Gravity,Urine 1.026 (1.001-1.030)
[2022-03-26 15:35] LABS: Bacteria,Urine None Seen /HPF (None Seen); Calcium Oxalate Crystals,Urine Present /LPF (None Seen)
[2022-03-26 15:56] LABS: African American GFR (CKD) 100.6 (60.0-200.0); Albumin/Globulin Ratio 1.82 (1.60-3.17); Anion Gap 10.5 mmol/L (10.00-18.00); Blood Urea Nitrogen 18.9 mg/dL (9.0-27.0); Calcium 9.2 mg/dL (8.7-10.3); Carbon Dioxide 23.5 mmol/L (20.0-27.5); Globulin 2.2 g/dL (1.6-3.3); Non-African American GFR(CKD) 86.8 (60.0-200.0); Potassium 3.9 mmol/L (3.5-5.5); Total Bilirubin 0.4 mg/dL (0.30-1.20); Total Protein 6.2 g/dL (6.2-8.2)
[2022-03-26 16:10] LABS: Hepatitis A Antibody IgM Nonreactive (Nonreactive); Hepatitis B Core IgM Nonreactive (Nonreactive)
[2022-03-26 16:11] LABS: Hepatitis B Surface Antigen Nonreactive (Nonreactive); Hepatitis C IgG Antibody Nonreactive (Nonreactive)
--- NOTE | 2022-03-28 06:49 | US ---
EXAMINATION TYPE: US vein mapping BIL DATE OF EXAM: 03/26/2022 11:14 AM COMPARISON: NONE CLINICAL HISTORY: OPEN HEART. Preop SIDE PERFORMED: Bilateral TECHNIQUE: Lower extremity saphenous vein is examined and measured utilizing real time linear array sonography. Patient History: Smoker: Prior Heart Disease: Yes Previous DVT: No Vascular Surgery: No Discoloration: No Hypertension: Yes Diabetes: No Paralysis: No Varicosities: Yes Edema: No DUPLEX FINDINGS: Greater Saphenous: Color flow seen Measurements in mm: Right Greater Saphenous: Groin: 7.2 mm High Thigh: 4.5 mm Mid Thigh: 3.7 mm Above Knee: 3.5 mm Knee: 3.3 mm Below Knee: 3.0 mm Mid Calf: 3.2 mm At Ankle: 2.6 mm Left Greater Saphenous: Groin: 7.8 mm High Thigh: 5.8 mm Mid Thigh: 4.6 mm Above Knee: 6.6 mm Knee: 5.2 mm Below Knee: 3.5 mm Mid Calf: 3.8 mm At Ankle: 3.1 mm IMPRESSION: 1. Bilateral GSV measurements listed above. 2. Performing surgeon to determine viability as conduit.
--- NOTE | 2022-03-28 06:50 | US ---
EXAMINATION TYPE: US arterial LE single level DATE OF EXAM: 03/26/2022 11:45 AM CLINICAL HISTORY: OPEN HEART. Preop. History of hypertension and hyperlipidemia. Doppler Waveforms: Right: Multiphasic to biphasic Left: Multiphasic to biphasic Ankle-Brachial Indices: Right: 1.1 Left: 1.2 Toe Brachial Indices: Right: 1.0 Left: 0.9 IMPRESSION: Normal study.
== END | disposition home or self-care (01) ==
LOC: LABWHC1 08:58
PROVIDERS: ATTEND Surgery
DX: Z20.822 Contact with and (suspected) exposure to COVID-19 (principal); I25.10 Atherosclerotic heart disease of native coronary artery without angina pectoris; Z01.810 Encounter for preprocedural cardiovascular examination
CPT/HCPCS: 94150; 86900; 86901; 80053; 80074; 85025; 85610; 85730; 86850; 86920; 81001; 87070; 87086; 71046; 93970; 93922; 93880; 93005; 36415; U0003; U0005

== ENCOUNTER 2022-04-01 05:34 | Inpatient (IN) | payer MEDICARE ==
[~2022-04-01 05:34] MED LIST changes: +ALBUMIN HUMAN 25% 50 ML IV ONE; +ALBUMIN HUMAN 5% 500 ML IVPB ONE; -ALPRAZolam 0.25 MG TAB PO PRN; -ALPRAZolam 0.5 MG TAB PO PRN; +ASPIRIN 325 MG TAB PO ONE; -ASPIRIN 325 MG TAB PO STA; -ASPIRIN 81 MG PO SCH; +ATORVASTATIN 10 MG TAB PO ONE; -ATORVASTATIN 40 MG TAB PO SCH; -ATORVASTATIN 80 MG TAB PO STA; +CALCIUM CHLORIDE 100 MG/ML 10 ML SYRINGE IV ONE; +CHLORHEXIDINE GLUCONATE 15 ML CUP MUCOUS MEM ONE; +CLEVIDIPINE BUTYRATE 25 MG in EMPTY BAG 1 BAG IV ONE; +ELECTROLYTE-A SOLUTION 1,000 ML with POTASSIUM CHLORIDE 100 MEQ, MAGNESIUM SULFATE 16 M... IV ONE; +ELECTROLYTE-A SOLUTION 1,000 ML with POTASSIUM CHLORIDE 40 MEQ, MAGNESIUM SULFATE 16 ME... IV ONE; +HEPARIN SODIUM 1,000 UN/ML (10ML VL) IV ONE; -HEPARIN SODIUM 1,000 UN/ML (10ML VL) IVP ONE; -HEPARIN SODIUM,PORCINE 10,000 UNIT in SODIUM CHLORIDE 0.9% 1,000 ML IRRIGATION PRN; -HEPARIN SODIUM,PORCINE 2,500 UNIT in SODIUM CHLORIDE 0.9% 250 ML IRRIGATION PRN; +HEPARIN SODIUM,PORCINE 5,000 UNIT in SODIUM CHLORIDE 0.9% 500 ML 500 ML IV ONE; +INSULIN REGULAR 100 UNIT in SODIUM CHLORIDE 0.9% 100 ML IV ONE; -IOPAMIDOL-370 125ML BTL INJ ONE; +LACTATED RINGERS 1,000 ML IV ONE; -LIDOCAINE 1% INJ 10MG/ML (30 ML VIAL-PF) SQ ONE; +MAGNESIUM SULFATE 16.24 MEQ in EMPTY SYRINGE 1 SYR IV ONE; +MANNITOL 25% 12.5 GM/50 ML VIAL IV ONE; +METOPROLOL TARTRATE 12.5 MG TAB PO ONE; -MIDAZOLAM 2 MG/2 ML VIAL IVP ONE; +MUPIROCIN 2% OINT 22 GM TUBE NASAL ONE; +NITROGLYCERIN SL TABS 0.4 MG TAB SUBLINGUAL ONE; -NITROGLYCERIN SL TABS 0.4 MG TAB SUBLINGUAL PRN; +NITROGLYCERIN-D5W PMX 25 MG/250 ML BTL IV ONE; +NITROGLYCERIN-D5W PMX 50 MG in DEXTROSE/WATER 1 250ML.BAG IV ONE; -NON FORMULARY DRUG (Vit C/E/Zn/Coppr/Lutein/Zeaxan [Preservision Areds 2 Softgel] 1 EACH C PO SCH; +NOREPINEPHRINE 4 MG in SODIUM CHLORIDE 0.9% 250 ML IV ONE; -PANTOPRAZOLE 40 MG TABLET PO SCH; +PAPAVERINE 360 MG in SODIUM CHLORIDE 0.9% 90 ML IV ONE; +PHENYLEPHRINE 10 MG/ML VIAL IV ONE; +PHENYLEPHRINE 40 MG in SODIUM CHLORIDE 0.9% 250 ML IV ONE; +PROTAMINE SULFATE 10 MG/ML 25 ML VIAL IV ONE; +PROTAMINE SULFATE 250 MG in EMPTY BAG 1 BAG IV ONE; -RX INFO: IV CONTRAST WAS GIVEN 1 EACH MISC MISCELLANE PRN; +SODIUM BICARB 8.4% 50 ML SYR (1 MEQ/ML) IV ONE; +SODIUM CHLORIDE 0.9% 1,000 ML IV ONE; -SODIUM CHLORIDE 0.9% 1,000 ML IV SCH; -SODIUM CHLORIDE 0.9% 1,000 ML in EMPTY BAG 1 BAG IV SCH; +TRANEXAMIC ACID 2,000 MG in SODIUM CHLORIDE 0.9% 80 ML IV ONE; -VERAPAMIL SYRINGE (5 MG/10 ML) INTRAARTER ONE; -amLODIPine 10 MG TAB PO SCH; -atenoloL 25 MG TAB PO SCH; +ceFAZolin 1,000 MG in SODIUM CHLORIDE 0.9% IRRIGATIO 1,000 ML IRRIGATION ONE; -fentaNYL (PF) 50 MCG/ML 2 ML AMP IVP ONE; +propofoL 1,000 MG/100 ML VIAL IV ONE
[2022-04-01] MEDS ORDERED: LACTATED RINGERS 1,000 ML IV ONE (06:13)
[2022-04-01] MEDS ORDERED: ePHEDrine 50 MG/ML 1 ML VIAL ONE (07:57)
[2022-04-01] MEDS ORDERED: fentaNYL (PF) 50 MCG/ML 50 ML VIAL ONE (07:57)
[2022-04-01] MEDS ORDERED: ALBUMIN HUMAN 5% (25gm) 500 ML VIAL IVPB ONE (07:57)
[2022-04-01] MEDS ORDERED: PROPOFOL 10 MG/ML 20 ML VIAL IV ONE (07:57)
[2022-04-01] MEDS ORDERED: MAGNESIUM SULFATE 4 MEQ/ML 10ML VIAL ONE (07:57)
[2022-04-01] MEDS ORDERED: LIDOCAINE 2% SYG (PF) 100 MG/5 ML ONE (07:57)
[2022-04-01] MEDS ORDERED: SUCCINYLCHOLINE CHLORIDE 200 MG/10 ML VIAL IV ONE (07:57)
[2022-04-01] MEDS ORDERED: ALBUMIN HUMAN 5% (12.5gm) 250 ML BOTTLE IVPB ONE (07:57)
[2022-04-01] MEDS ORDERED: METOPROLOL TARTRATE 5 MG/5 ML VIAL IVP ONE (07:57)
[2022-04-01] MEDS ORDERED: SODIUM CHLORIDE 0.9% IRRIG 1,000 ML BTL IRRIGATION ONE (07:57)
[2022-04-01] MEDS ORDERED: MIDAZOLAM HCL 10 MG/10 ML VIAL ONE (07:57)
[2022-04-01 11:30] LABS: ABG Base Excess -1.9 mmol/L; ABG Glucose Whole Blood 108 mg/dL (75-99); ABG HCO3 23 mmol/L (21-25); ABG Hematocrit 29 % (34.0-46.0); ABG Ionized Calcium 4.5 mg/dL (4.5-5.3); ABG Oxygen Saturation 99.6 % (94-97); ABG PCO2 39 mmHg (35-45); ABG PH 7.38 (7.35-7.45); ABG PO2 268 mmHg (83-108); ABG Potassium Whole Blood 3.7 mmol/L (3.4-4.5); ABG Sodium Whole Blood 141 mmol/L (135-146); ABG TCO2 24 mmol/L (19-24)
[2022-04-01 12:04] LABS: Glucose,Whole Blood 109 mg/dL (70-110)
[2022-04-01] MEDS ORDERED: CALCIUM GLUCONATE IN NACL 2 GM in SALINE 1 100ML.BAG IVPB PRN (12:15)
[2022-04-01] MEDS ORDERED: NITROGLYCERIN-D5W PMX 50 MG in DEXTROSE/WATER 1 250ML.BAG IV SCH (12:15)
[2022-04-01] MEDS ORDERED: hydrALAZINE HCL 20 MG/ML 1 ML VIAL IVP PRN (12:15)
[2022-04-01] MEDS ORDERED: DEXMEDETOMIDINE/0.9% NACL(PMX) 400 MCG in EMPTY BAG 1 BAG IV SCH (12:15)
[2022-04-01] MEDS ORDERED: INSULIN REGULAR 100 UNIT in SODIUM CHLORIDE 0.9% 100 ML IV SCH (12:15)
[2022-04-01] MEDS ORDERED: DEXTROSE 50% SYRINGE 50 ML IVP PRN ×2 (12:15)
[2022-04-01] MEDS ORDERED: AMIODARONE 360 MG in DEXTROSE 5% IN WATER 200 ML IV PRN ×2 (12:15)
[2022-04-01] MEDS ORDERED: ASPIRIN 300 MG SUPP RECTAL ONE (12:15)
[2022-04-01] MEDS ORDERED: DEXTROSE 5% IN WATER 100 ML with AMIODARONE 150 MG IV PRN (12:15)
[2022-04-01] MEDS ORDERED: AMIODARONE 450 MG in DEXTROSE 5% IN WATER 250 ML IV PRN ×2 (12:15)
[2022-04-01] MEDS ORDERED: IPRATROPIUM-ALBUTEROL 3 ML NEB INHALATION PRN (12:15)
[2022-04-01] MEDS ORDERED: Potassium Replacement Protocol 1 EACH MISC MISCELLANE PRN (12:15)
[2022-04-01] MEDS ORDERED: BENZOCAINE/MENTHOL LOZENG 1 EACH LOZENGE MUCOUS MEM PRN (12:15)
[2022-04-01] MEDS ORDERED: ONDANSETRON 4 MG/2 ML VIAL IVP PRN (12:15)
[2022-04-01] MEDS ORDERED: MORPHINE SULFATE 2 MG/ML SYRINGE IVP PRN (12:15)
[2022-04-01] MEDS ORDERED: Magnesium Replacement Protocol 1 EACH MISC MISCELLANE PRN (12:15)
[2022-04-01 12:16] LABS: Glucose,Whole Blood 107 mg/dL (70-110)
[2022-04-01 12:39] LABS: Basophils % (A) 0 %; Eosinophils # (A) 0.1 k/uL (0-0.7); Eosinophils % (A) 1 %; HCT 26.6 % (39.0-53.0); Ionized Calcium 4.7 mg/dL (4.5-5.3); Lymphocytes # (A) 1.5 k/uL (1.0-4.8); Lymphocytes % (A) 23 %; MCHC 33.5 g/dL (31.0-37.0); MCV 86.8 fL (80.0-100.0); Mean Platelet Volume 9.5; Monocytes # (A) 0.2 k/uL (0-1.0); Monocytes % (A) 4 %; Neutrophils # (A) 4.8 k/uL (1.3-7.7); Neutrophils % (A) 72 %; Platelet Count 101 k/uL (150-450); RBC 3.06 m/uL (4.30-5.90); RDW 12.5 % (11.5-15.5); WBC 6.7 k/uL (3.8-10.6)
[2022-04-01 12:40] LABS: HGB 8.9 gm/dL (13.0-17.5)
[2022-04-01 12:41] LABS: ABG Base Excess -1.5 mmol/L; ABG HCO3 24 mmol/L (21-25); ABG PCO2 39 mmHg (35-45); ABG PH 7.39 (7.35-7.45); ABG PO2 277 mmHg (83-108); ABG TCO2 25 mmol/L (19-24)
[2022-04-01 12:42] LABS: Allen Test Performed? no
[2022-04-01 12:50] LABS: ALT 17 U/L (4-49); AST 17 U/L (17-59); African American GFR (CKD) >90 (>60 ml/min/1.73 sqM); Albumin 3.1 g/dL (3.5-5.0); Alkaline Phosphatase 39 U/L (38-126); Anion Gap 9 mmol/L; Blood Urea Nitrogen 14 mg/dL (9-20); Calcium 7.4 mg/dL (8.4-10.2); Carbon Dioxide 21 mmol/L (22-30); Chloride 108 mmol/L (98-107); Glucose 101 mg/dL (74-99); Non-African American GFR(CKD) >90 (>60 ml/min/1.73 sqM); Potassium 3.6 mmol/L (3.5-5.1); Sodium 138 mmol/L (137-145); Total Bilirubin 0.7 mg/dL (0.2-1.3); Total Protein 4.4 g/dL (6.3-8.2)
[2022-04-01] MEDS: CLEVIDIPINE BUTYRATE 25 MG in EMPTY BAG 1 BAG IV SCH ×4 (12:54→22:46)
--- NOTE | 2022-04-01 12:55 | XR ---
EXAMINATION TYPE: XR chest 1V portable DATE OF EXAM: 04/01/2022 COMPARISON: Chest x-ray 03/26/2022 HISTORY: Postop cardiac surgery TECHNIQUE: Single frontal view of the chest is obtained. FINDINGS: Endotracheal tube, NG tube, right jugular central venous catheter, left chest tube, median sternal drains are overlying appropriate positions. Patient is post median sternotomy. Lung volumes are low and the patient is rotated. There are overlying leads. No evident pneumothorax or right pleur al effusion, left hemidiaphragm is obscured medially, this blunting of left costophrenic angle. There is prominence of the region of the aorta, superior mediastinum. Heart size may be accentuated by rot ation. Patchy density present at the lung bases. IMPRESSION: Expiratory rotated exam. Probable postoperative findings, left lower lobe atelectasis an d associated effusion. Post median sternotomy change, follow-up recommended.
[2022-04-01 13:08] LABS: Glucose,Whole Blood 105 mg/dL (70-110)
[2022-04-01] MEDS: SODIUM CHLORIDE 0.9% 1,000 ML IV SCH (13:23)
[2022-04-01] MEDS: ACETAMINOPHEN IV (For NPO) 1,000 MG in EMPTY BAG 1 BAG IVPB SCH ×2 (13:34→18:29)
[2022-04-01 13:54] LABS: INR 1.2 (<1.2); Prothrombin Time 12.6 sec (9.0-12.0)
[2022-04-01 13:55] LABS: Partial Thromboplastin Time 30.8 sec (22.0-30.0)
[2022-04-01 14:00] LABS: Glucose,Whole Blood 119 mg/dL (70-110)
--- NOTE | 2022-04-01 14:14 | P.CONS ---
History of Present Illness - Reason for Consult Consult date: 04/01/22 - History of Present Illness HISTORY OF PRESENT ILLNESS This is a 71-year-old male patient with past medical history of hypertension, hyperlipidemia, gastroesophageal reflux disease. Patient has been newly established in my office. He has been having symptoms of dyspnea on exertion and dizziness. Stress echocardiogram showed evidence of inferior and inferior septal ischemia with a normal systolic function at baseline. On 02/14/2022, patient underwent cardiac catheterization with Dr. 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 Ipsilateral and contralateral collaterals to the left anterior descending artery. No significant obstructive disease in the left circumflex and right coronary artery. Right dominance. Recommendations were for the patient to be evaluated for coronary artery bypass grafting. Patient has been brought in the hospital by cardiothoracic team for CABG. Patient is seen on postop day 0. He is in the intensive care unit currently on a nitroglycerin drip, propofol drip and clevidipine drip. Patient is intubated and on mechanical ventilation with tidal volume 500, FiO2 60, PEEP 10. Patient appears to be comfortable. Hemoglobin 8.9, PLT 101, WBC 6.7. Potassium is 3.6. BUN 14 creatinine 0.68. Blood sugar 107. Postoperative chest x-ray reveals postop findings with left lower lobe atelectasis and associated effusion. Post median sternotomy change. REVIEW OF SYSTEMS Patient is currently sedated on mechanical ventilation. Constitutional: No fever, no chills, no night sweats. No weight change. No weakness, fatigue or lethargy. No daytime sleepiness. EENT: No headache. No blurred vision or double vision, no loss of vision. No loss of Hearing, no ringing in the ears, no dizziness. No nasal drainage or congestion. No epistaxis. No sore throat. Lungs: No shortness of breath, cough, no sputum production. No wheezing. Cardiovascular: No chest pain, no lower extremity edema. No palpitations. No paroxysmal nocturnal dyspnea. No orthopnea. No lightheadedness or dizziness. No syncopal episodes. Abdominal: No abdominal pain. No nausea, vomiting. No diarrhea. No constipation. No bloody or tarry stools. No loss of appetite. Genitourinary: No dysuria, increased frequency, urgency. No urinary retention. Yates catheter in place. Musculoskeletal: No myalgias. No muscle weakness, no gait dysfunction, no frequent falls. No back pain. No neck pain. Integumentary: No wounds, no lesions. No rash or pruritus. No unusual bruising. No change in hair or nails. Neurologic: No aphasia. No facial droop. No change in mentation. No head injury. No headache. No paralysis. No paresthesia. Psychiatric: No depression. No anxiety. No mood swings. Endocrine: No abnormal blood sugars. No weight change. No excessive sweating or thirst. No cold intolerance. MEDICAL HISTORY Hypertension Hyperlipidemia Gastroesophageal reflux disease Coronary artery disease. SURGICAL HISTORY Cardiac catheterization Right rotator cuff repair Acromioplasty of the bilateral shoulders Excision of salivary gland stone Arthroscopic left knee EGD Colonoscopy Bilateral knee replacement SOCIAL HISTORY Patient was a smoker off and on for 10 years and quit in the early 1980s. He drinks alcohol socially. Patient lives at home with his . FAMILY HISTORY Father at age 64 from esophageal cancer with metastatic disease to the brain and lungs. Mother at age 89 with history of CVA and hypertension. Patient has 3 sisters living 1 has diabetes mellitus type 2. A shunt has one son and one daughter with no major medical problems.. PHYSICAL EXAMINATION Gen: This is a 71-year-old male. He is resting in the ICU bed appears to be comfortable. No acute distress noted. HEENT: Head is atraumatic, normocephalic. Pupils equal, round. Sclerae is anicteric. Oral ET tube in place. Patient is intubated and on mechanical ventilation. NECK: Supple. No JVD. No lymphadenopathy. No thyromegaly. Right-sided Cordis in place. LUNGS: Clear to auscultation. No wheezes or rhonchi. No intercostal retractions. Chest tube 3 with serosanguineous drainage. HEART: Regular rate and rhythm. Diastolic murmur at the right second intercostal space. Dressing over sternal wound is dry and intact, no drainage noted. ABDOMEN: Soft. Bowel sounds are present. No masses. No tenderness. Yates catheter draining clear christine urine. EXTREMITIES: No pedal edema. No calf tenderness. Dorsalis pedis +2 bilaterally. Braeden wraps to the bilateral lower extremities, SCDs in place bilaterally NEUROLOGICAL: Patient is sedated on mechanical ventilation. ASSESSMENT AND PLAN 1. Coronary artery disease status post CABG, left internal mammary artery to the diagonal artery and a oson-yv-bich fashion, left anterior descending artery in an end to side fashion, postop day #0. Continue current management per cardiothoracic team. 2. Acute hypoxic respiratory failure expected with surgery. Patient is currently intubated and on mechanical ventilation, expect extubation this evening. 3. Hypertension. Continue patient on Lopressor 12.5 mg twice daily. Amlodipine 10 mg at bedtime on hold. 4. Hyperlipidemia. Continue atorvastatin 40 mg at bedtime. 5. Gastroesophageal reflux disease. Continue Protonix 40 mg daily. 6. Remote history of tobacco use. 7. DVT prophylaxis. Lovenox 40 mg subcu. DISCHARGE PLAN TBD. Impression and plan of care have been directed as dictated by the signing physician. Dayana Hawley nurse practitioner acting as scribe for signing physician. Past Medical History Past Medical History: Chest Pain / Angina, GERD/Reflux, Hearing Disorder / Deafness, Hyperlipidemia, Hypertension, Osteoarthritis (OA) Additional Past Medical History / Comment(s): limited ROM rt shoulder, HISTORY OF KIDNEY STONES 2010., very sensitive to changes in BP, some SOB w/exertion, possible sleep apnea, no sleep study yet History of Any Multi-Drug Resistant Organisms: None Reported Past Surgical History: Heart Catheterization, Joint Replacement, Orthopedic Surgery Additional Past Surgical History / Comment(s): rt shoulder rotator cuff repair,Izzy Acromioplasty of Shoulders; EXC SALIVARY GLAND STONE. Arthoscopy left knee. EGD, COLONOSCOPY 04/15/16,izzy knee replacements. Past Anesthesia/Blood Transfusion Reactions: Postoperative Nausea & Vomiting (PONV) Additional Past Anesthesia/Blood Transfusion Reaction / Comm: nausea with Anesthesia Smoking Status: Former smoker - Past Family History Father Family Medical History: Cancer Medications and Allergies Home Medications Medication Instructions Recorded Confirmed Type Omeprazole [PriLOSEC] 20 mg PO QAM 08/02/14 03/26/22 History atenoloL [Tenormin] 25 mg PO QAM 08/02/14 03/26/22 History Vit C/E/Zn/Coppr/Lutein/Zeaxan 1 each PO BID 04/18/20 03/26/22 History [Preservision Areds 2 Softgel] Aspirin [Adult Low Dose Aspirin EC] 81 mg PO DAILY 08/24/20 03/26/22 History Naproxen Sodium [Aleve] 440 mg PO BID PRN 08/24/20 03/26/22 History amLODIPine [Norvasc] 10 mg PO HS 02/12/22 03/26/22 History Nitroglycerin Sl Tabs [Nitrostat] 0.4 mg SUBLINGUAL Q5M PRN #25 tab 02/13/22 03/26/22 Rx Atorvastatin [Lipitor] 40 mg PO HS 03/26/22 03/26/22 History Ubidecarenone [Co Q-10] 100 mg PO DAILY 03/26/22 03/26/22 History Allergies Allergy/AdvReac Type Severity Reaction Status Date / Time adhesive tape AdvReac skin Verified 03/26/22 09:32 blister Physical Exam Vitals: Vital Signs Temp Pulse Resp BP BP Pulse Ox FiO2 04/01/22 12:43 60 04/01/22 12:03 100 04/01/22 06:00 97.5 F L 67 18 135/82 136/82 98 Intake and Output 03/31/22 04/01/22 04/01/22 22:59 06:59 14:59 Intake Total 100 53 Output Total 900 Balance 100 -847 Intake: IV 100 53 Output: Urine 500 Estimated Blood Loss 400 Other: Weight 99.9 kg Results CBC & Chem 7: 04/03/22 05:25 04/03/22 05:25 Labs: Abnormal Lab Results - Last 24 Hours (Table) 03/26/22 04/01/22 04/01/22 Range/Units 09:12 11:33 12:16 RBC 3.06 L (4.30-5.90) m/uL Hgb 8.9 L D (13.0-17.5) gm/dL Hct 26.6 L (39.0-53.0) % Plt Count 101 L (150-450) k/uL ABG pO2 268 H (83-108) mmHg ABG Total CO2 (19-24) mmol/L ABG O2 Saturation 99.6 H (94-97) % ABG Hematocrit 29 L (34.0-46.0) % ABG Glucose 108 H (75-99) mg/dL Hemoglobin 9.4 L (13.0-17.5) gm/dL Chloride (98-107) mmol/L Carbon Dioxide (22-30) mmol/L Glucose (74-99) mg/dL Calcium (8.4-10.2) mg/dL Total Protein (6.3-8.2) g/dL Albumin (3.5-5.0) g/dL Arterial Blood Glucose 108 H (75-99) mg/dL Crossmatch See Detail 04/01/22 04/01/22 Range/Units 12:16 12:39 RBC (4.30-5.90) m/uL Hgb (13.0-17.5) gm/dL Hct (39.0-53.0) % Plt Count (150-450) k/uL ABG pO2 277 H (83-108) mmHg ABG Total CO2 25 H (19-24) mmol/L ABG O2 Saturation 100.0 H (94-97) % ABG Hematocrit (34.0-46.0) % ABG Glucose (75-99) mg/dL Hemoglobin (13.0-17.5) gm/dL Chloride 108 H (98-107) mmol/L Carbon Dioxide 21 L (22-30) mmol/L Glucose 101 H (74-99) mg/dL Calcium 7.4 L (8.4-10.2) mg/dL Total Protein 4.4 L (6.3-8.2) g/dL Albumin 3.1 L (3.5-5.0) g/dL Arterial Blood Glucose (75-99) mg/dL Crossmatch
--- NOTE | 2022-04-01 14:52 | P.CNPUL ---
History of Present Illness Consult date: 04/01/22 Requesting physician: Isai Gonzalez Reason for consult: other Chief complaint: Status post bypass grafting. History of present illness: Pulmonary/critical care consultation, 04/01/2022. 71-year-old male, that were asked to see in the intensive care unit, after having a two-vessel bypass grafting. He has a history of hypertension, hyperlipidemia, and gastroesophageal reflux disease. The patient apparently was having symptoms of shortness of breath on exertion, and dizziness, and echocardiogram showed evidence of inferior and inferior septal ischemia with normal systolic function at baseline. Cardiac catheterization was done by Dr. 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 The patient was sent to be evaluated by cardiothoracic surgery for bypass grafting. He is currently on the ventilator, with settings of volume assist control, rate of 14, tidal volume 500, FiO2 50%, and PEEP of 10. Blood gases on 100% show pO2 of 277, pCO2 39, pH is 7.38. The patient's cardiac output is 6.9, with an index of 3.3. The patient's currently on Cleveprex at 3 mg an hour, nitroglycerin at 5 mcg/m, and propofol at 25 mcg/kg/m. In addition, the patient is getting lactated Ringer's at 50 mL an hour. White count 6.7, hemoglobin 8.9, hematocrit 26.6, platelet count 201,000. Sodium 138, potassium 3.6, chlorides 108, CO2 21, BUN 14, creatinine 0.68. Chest x-ray shows postsurgical changes, as well as some bibasilar atelectasis. Review of Systems REVIEW OF SYSTEMS: A review of systems cannot be obtained as the patient's currently sedated and on the mechanical ventilator. CONSTITUTIONAL: [Negative.] NEUROLOGIC: [ Negative.] HEENT: [ Negative.] CARDIAC: [Negative.] PULMONARY: [Negative.] GI: [Negative.] : [Negative.] RHEUMATOLOGIC: [ Negative.] IMMUNOLOGIC: [ Negative.] ENDOCRINE: [Negative. ] DERMATOLOGIC: [Negative.] Past Medical History Past Medical History: Chest Pain / Angina, GERD/Reflux, Hearing Disorder / Deafness, Hyperlipidemia, Hypertension, Osteoarthritis (OA) Additional Past Medical History / Comment(s): limited ROM rt shoulder, HISTORY OF KIDNEY STONES 2010., very sensitive to changes in BP, some SOB w/exertion, possible sleep apnea, no sleep study yet History of Any Multi-Drug Resistant Organisms: None Reported Past Surgical History: Heart Catheterization, Joint Replacement, Orthopedic Surgery Additional Past Surgical History / Comment(s): rt shoulder rotator cuff repair,Izzy Acromioplasty of Shoulders; EXC SALIVARY GLAND STONE. Arthoscopy left knee. EGD, COLONOSCOPY 04/15/16,izzy knee replacements. Past Anesthesia/Blood Transfusion Reactions: Postoperative Nausea & Vomiting (PONV) Additional Past Anesthesia/Blood Transfusion Reaction / Comment(s): nausea with Anesthesia Smoking Status: Former smoker - Past Family History Father Family Medical History: Cancer Medications and Allergies Home Medications Medication Instructions Recorded Confirmed Type Omeprazole [PriLOSEC] 20 mg PO QAM 08/02/14 03/26/22 History atenoloL [Tenormin] 25 mg PO QAM 08/02/14 03/26/22 History Vit C/E/Zn/Coppr/Lutein/Zeaxan 1 each PO BID 04/18/20 03/26/22 History [Preservision Areds 2 Softgel] Aspirin [Adult Low Dose Aspirin EC] 81 mg PO DAILY 08/24/20 03/26/22 History Naproxen Sodium [Aleve] 440 mg PO BID PRN 08/24/20 03/26/22 History amLODIPine [Norvasc] 10 mg PO HS 02/12/22 03/26/22 History Nitroglycerin Sl Tabs [Nitrostat] 0.4 mg SUBLINGUAL Q5M PRN #25 tab 02/13/22 03/26/22 Rx Atorvastatin [Lipitor] 40 mg PO HS 03/26/22 03/26/22 History Ubidecarenone [Co Q-10] 100 mg PO DAILY 03/26/22 03/26/22 History Allergies Allergy/AdvReac Type Severity Reaction Status Date / Time adhesive tape AdvReac skin Verified 03/26/22 09:32 blister Physical Exam Osteopathic Statement: *. No significant issues noted on an osteopathic structural exam other than those noted in the History and Physical/Consult. Vitals: Vital Signs Temp Pulse Pulse Resp BP BP Pulse Ox 04/01/22 14:04 04/01/22 14:00 68 14 98 04/01/22 13:50 68 14 98 04/01/22 13:40 69 14 98 04/01/22 13:30 69 14 99 04/01/22 13:20 72 14 99 04/01/22 13:10 73 14 98 04/01/22 13:00 70 14 98 04/01/22 12:50 72 14 98 04/01/22 12:43 04/01/22 12:40 70 14 100 04/01/22 12:30 69 14 100 04/01/22 12:20 68 14 99 04/01/22 12:10 67 14 99 04/01/22 12:03 04/01/22 12:02 74 14 99 04/01/22 06:00 97.5 F L 67 18 135/82 136/82 98 FiO2 04/01/22 14:04 50 04/01/22 14:00 04/01/22 13:50 04/01/22 13:40 04/01/22 13:30 04/01/22 13:20 04/01/22 13:10 04/01/22 13:00 04/01/22 12:50 04/01/22 12:43 60 04/01/22 12:40 04/01/22 12:30 04/01/22 12:20 04/01/22 12:10 04/01/22 12:03 100 04/01/22 12:02 04/01/22 06:00 Intake and Output 03/31/22 04/01/22 04/01/22 22:59 06:59 14:59 Intake Total 100 314.4 Output Total 2075 Balance 100 -1760.6 Intake: IV 100 314.0 ACETAMINOPHEN IV (For NPO 100 ) 1,000 mg In Empty Bag 1 bag @ 400 mls/hr IVPB Q6HR [facility] Rx#:[id number] CO/CI 40 Nitroglycerin-D5w Pmx 50 3.0 mg In Dextrose/Water 1 250ml.bag @ 5 MCG/MIN 1.5 mls/hr IV .Q24H [facility] Rx#: [id number] Pressure Bags 18 Sodium Chloride 0.9% 1, 100 000 ml @ 50 mls/hr IV . Q20H [facility] Rx#:[id number] Intake, IV Titration 0.4 Amount Clevidipine Butyrate 25 0.4 mg In Empty Bag 1 bag @ 1 MG/HR 2 mls/hr IV .Q24H [facility] Rx#:[id number] Output: Chest Tube Drainage 450 Chest Tube Left Pleural/ 228 Mediastinal Chest Tube Mediastinal 222 Urine 1225 Estimated Blood Loss 400 Other: Weight 99.9 kg ABP, PAP, CO, CI - Last 8 Hours Arterial Blood Pressure 134/58 Arterial Blood Pressure 131/57 Arterial Blood Pressure 130/59 Arterial Blood Pressure 135/60 Arterial Blood Pressure 139/57 Arterial Blood Pressure 137/61 Arterial Blood Pressure 145/61 Arterial Blood Pressure 143/55 Arterial Blood Pressure 148/59 Arterial Blood Pressure 120/56 Arterial Blood Pressure 117/52 Arterial Blood Pressure 139/65 Pulmonary Artery Pressure 36/22 Pulmonary Artery Pressure 34/20 Pulmonary Artery Pressure 37/23 Pulmonary Artery Pressure 40/23 Pulmonary Artery Pressure 43/27 Pulmonary Artery Pressure 59/26 Pulmonary Artery Pressure 44/25 Pulmonary Artery Pressure 37/17 Pulmonary Artery Pressure 33/16 Pulmonary Artery Pressure 40/27 Pulmonary Artery Pressure 33/20 Pulmonary Artery Pressure 46/30 Cardiac Output 6.9 Cardiac Output 8.2 Cardiac Output 7.9 Cardiac Index 3.3 Cardiac Index 3.9 Cardiac Index 3.7 No acute distress, sedated, with an orally placed endotracheal tube and NG tube. HEENT examination is grossly unremarkable. Neck supple. Full range of motion. No adenopathy thyromegaly or neck vein distention. Cardiovascular examination reveals regular rhythm rate. S1-S2 normal. No S3 or S4. No discernible murmur noted. Heart rate 68 bpm. Lungs reveal mostly clear breath sounds. Minimal scattered rhonchi. No wheezes or crackles. Breath sounds equal bilaterally. Saturations 98%. Abdomen soft, without bowel sounds. Extremities are intact. No cyanosis clubbing or edema. Skin is without rash or lesion. Neurologic examination cannot be assessed as the patient's currently sedated. Results - Laboratory Findings CBC and BMP: 04/01/22 12:16 04/01/22 12:16 ABG ABG pH 7.39 (7.35-7.45) 04/01/22 12:39 ABG pCO2 39 mmHg (35-45) 04/01/22 12:39 ABG pO2 277 mmHg (83-108) H 04/01/22 12:39 ABG O2 Saturation 100.0 % (94-97) H 04/01/22 12:39 PT/INR, D-dimer PT 12.6 sec (9.0-12.0) H 04/01/22 12:16 INR 1.2 (<1.2) H 04/01/22 12:16 Abnormal lab findings: Abnormal Labs 03/26/22 04/01/22 04/01/22 09:12 11:33 12:16 RBC 3.06 L Hgb 8.9 L D Hct 26.6 L Plt Count 101 L PT INR APTT ABG pO2 268 H ABG Total CO2 ABG O2 Saturation 99.6 H ABG Hematocrit 29 L ABG Glucose 108 H Hemoglobin 9.4 L Chloride Carbon Dioxide Glucose POC Glucose (mg/dL) Calcium Total Protein Albumin Arterial Blood Glucose 108 H Crossmatch See Detail 04/01/22 04/01/22 04/01/22 12:16 12:16 12:39 RBC Hgb Hct Plt Count PT 12.6 H INR 1.2 H APTT 30.8 H ABG pO2 277 H ABG Total CO2 25 H ABG O2 Saturation 100.0 H ABG Hematocrit ABG Glucose Hemoglobin Chloride 108 H Carbon Dioxide 21 L Glucose 101 H POC Glucose (mg/dL) Calcium 7.4 L Total Protein 4.4 L Albumin 3.1 L Arterial Blood Glucose Crossmatch 04/01/22 13:58 RBC Hgb Hct Plt Count PT INR APTT ABG pO2 ABG Total CO2 ABG O2 Saturation ABG Hematocrit ABG Glucose Hemoglobin Chloride Carbon Dioxide Glucose POC Glucose (mg/dL) 119 H Calcium Total Protein Albumin Arterial Blood Glucose Crossmatch - Diagnostic Findings Chest x-ray: image reviewed Assessment and Plan Assessment: Postop day #0, off pump two-vessel bypass grafting, LEY to LAD to diagonal, exclusion of left atrial appendage, and intraoperative transesophageal echocardiogram. Routine postoperative ventilator management. History of hypertension. History of hyperlipidemia. History of gastroesophageal reflux disease. Plan: Plan dated 04/01/2022. The patient is seen in the intensive care unit. FiO2 was dropped from 100% to 50%, after the pO2 was found to be 277. Cardiac up at 6.9. Index is 3.3. The patient is on Cleveprex at 3 mg an hour, nitroglycerin at 5 mcg/m, and propofol at 25 mcg/kg/m. The patient's also receiving lactated Ringer's at 50 mL the patient will be extubated within the 6 hour window. Follow, make recommendations along the way. Post extubation, the patient will focus on deep breathing, coughing, and clearing of secretions, and hourly use of the incentive spirometer. Time with Patient: Greater than 30
[2022-04-01 15:00] LABS: Glucose,Whole Blood 123 mg/dL (70-110)
[2022-04-01 15:05] LABS: Basophils % (A) 0 %; Eosinophils # (A) 0.1 k/uL (0-0.7); Eosinophils % (A) 1 %; HCT 29.8 % (39.0-53.0); HGB 10.3 gm/dL (13.0-17.5); Lymphocytes # (A) 1.3 k/uL (1.0-4.8); Lymphocytes % (A) 19 %; MCH 29.8 pg (25.0-35.0); MCHC 34.4 g/dL (31.0-37.0); MCV 86.7 fL (80.0-100.0); Mean Platelet Volume 10.8; Monocytes # (A) 0.3 k/uL (0-1.0); Monocytes % (A) 4 %; Neutrophils # (A) 5.5 k/uL (1.3-7.7); Neutrophils % (A) 76 %; Platelet Count 107 k/uL (150-450); RBC 3.44 m/uL (4.30-5.90); RDW 12.5 % (11.5-15.5); WBC 7.2 k/uL (3.8-10.6)
[2022-04-01] MEDS: IPRATROPIUM-ALBUTEROL 3 ML NEB INHALATION SCH ×3 (15:15→19:39)
[2022-04-01 16:15] LABS: Glucose,Whole Blood 152 mg/dL (70-110)
[2022-04-01 16:42] LABS: ABG Base Excess -2.2 mmol/L; ABG HCO3 24 mmol/L (21-25); ABG Oxygen Saturation 98.8 % (94-97); ABG PCO2 43 mmHg (35-45); ABG PH 7.34 (7.35-7.45); ABG PO2 110 mmHg (83-108); ABG TCO2 25 mmol/L (19-24); Allen Test Performed? Yes
[2022-04-01 17:07] LABS: Glucose,Whole Blood 156 mg/dL (70-110)
[2022-04-01 18:08] LABS: Glucose,Whole Blood 135 mg/dL (70-110)
[2022-04-01 18:14] LABS: Basophils % (A) 0 %; Eosinophils % (A) 0 %; HCT 33.1 % (39.0-53.0); HGB 11.4 gm/dL (13.0-17.5); Lymphocytes # (A) 0.6 k/uL (1.0-4.8); Lymphocytes % (A) 7 %; MCH 30.1 pg (25.0-35.0); MCHC 34.5 g/dL (31.0-37.0); MCV 87.2 fL (80.0-100.0); Mean Platelet Volume 9.9; Monocytes # (A) 0.4 k/uL (0-1.0); Monocytes % (A) 5 %; Neutrophils # (A) 8.4 k/uL (1.3-7.7); Neutrophils % (A) 88 %; Platelet Count 119 k/uL (150-450); RBC 3.79 m/uL (4.30-5.90); RDW 12.5 % (11.5-15.5); WBC 9.5 k/uL (3.8-10.6)
[2022-04-01] MEDS: KETOROLAC 15 MG/ML 1 ML VIAL IVP SCH (18:29)
[2022-04-01 18:56] LABS: Glucose,Whole Blood 139 mg/dL (70-110)
[2022-04-01] MEDS: METOCLOPRAMIDE 5 MG/ML 2 ML VIAL IVP PRN (19:39)
--- NOTE | 2022-04-01 20:07 | OP ---
OPERATIVE REPORT APPRENTICE ARCHITECT: Kobi Carnes, Physician Business Education Professor and Stephen Li, Nurse Practitioner. PREOPERATIVE DIAGNOSES: Coronary artery disease with total occlusion of the left anterior descending artery, overall preserved left ventricular function, hypertension, hyperlipidemia. POSTOPERATIVE DIAGNOSES: Coronary artery disease with total occlusion of the left anterior descending artery, overall preserved left ventricular function, hypertension, hyperlipidemia. PROCEDURES: 1. Off pump total arterial coronary artery bypass grafting using the left internal mammary artery to the diagonal artery in a [id number] fashion, then to the left anterior descending artery in an end-to-side fashion. 2. Exclusion of the left atrial appendage using a 40 mm AtriClip. 3. Intraoperative graft flow measurements using the Doodle system. 4. Intraoperative transesophageal echocardiogram. INDICATIONS FOR SURGERY: The patient is a 71-year-old gentleman who was worked up as an outpatient and found to have a totally occluded left anterior descending artery after a takeoff of a diagonal artery that had around 80% stenosis. The right and circumflex system were free from any significant stenosis. His ejection fraction was around 55% with overall good motion of the anterior wall. The patient is brought in today for an off pump bypass to his left anterior descending artery and diagonal artery. The STS risk was discussed with him and his . They understood them and agreed to proceed. DESCRIPTION OF PROCEDURE: The patient in supine position in the preoperative holding area. Right internal jugular [place]-Gavin catheter and the right radial arterial line were placed. The cardiac index was 2.8. PA pressure was 35/12. Subsequently he was brought to the operating room, where general endotracheal anesthesia was induced uneventfully. He received 2 g of cefazolin intravenously. A Yates catheter was inserted. Subsequently, the chest, abdomen and both lower extremities were prepped and draped using ChloraPrep. Ioban was used to cover the skin. Transesophageal echocardiogram confirmed the preoperative finding of overall preserved systolic function and no significant valvular abnormalities. A midline sternotomy was performed and no bone wax was used. The left hemisternum was elevated and the left internal mammary artery was harvested in a semi-skeletonized fashion. The left pleura was intentionally opened in this process and was drained with a 19-Bulgarian Allen drain. The patient was given 5000 units of heparin. The mammary artery was double clipped distally and transected and had an excellent pulsatile flow in it and was around 2 mm in diameter. The acrobat system along with the exposed device were used to perform the surgery on a beating heart. We opened the pericardium in an inverted T-fashion after preserving the mediastinal fat at the level of the aorta. Finding included the soft aorta and slightly enlarged leftward rotated heart that had a fatty surface. The patient was given additional heparin to achieve an ACT of 250 seconds. The ACT was repeated every 15 minutes and additional heparin given if needed. We started initially by excluding the left atrial appendage by deploying a 40 mm AtriClip at its base. Subsequently, we performed the first distal anastomosis in a [id number] parallel fashion between the body of the left internal mammary artery and the 1.75 mm first diagonal artery that was thin-walled using Prolene 7-0 in continuous fashion. A 1.5 mm shunt was used in this anastomosis and it was retrieved before completing it. There was preserved excellent flow from the distal left anterior descending artery. The graft flow measurements at this point of the LEY to diagonal artery showed a flow of 18 mL/minute, pulsatility index of 4.7 and diastolic filling of 66% with some competitive flow. Subsequently, the second and last distal anastomosis was between the end of the left internal mammary artery and the side of the distal left anterior descending artery, which was opened, had reasonable collateral flow and it was around 2 mm in diameter. We used a 1.5 mm shunt. The anastomosis was completed using a running Prolene 7-0. The shunt was removed before completing the anastomosis, which was well tolerated. At this point, the heart was put back in place. The flow into the left internal mammary artery segment to the left anterior descending artery was 34 mL/minute, pulsatility index of 1.8, diastolic filling of 77% showing excellent functioning graft. The flow in the proximal left internal mammary artery feeding the diagonal and the left anterior descending artery was 48 mL/minute, pulsatility index of 2, diastolic filling of 72% showing excellent functioning graft. With that half dose protamine was given. Two 19-Bulgarian Allen drain were left substernally. Pericardial fat was approximated over the heart. After ensuring adequate hemostasis and hemodynamic and after correct sponge, instrument, and needle count, the sternum was closed using 5 [id number] pineal cable after interposing fibular between the sternal edges. Thorough irrigation with cefazolin followed. The rest of the closure proceeded in layers. Skin glue was applied. The patient did not receive any blood products, but received 125 mL of Cell Saver blood. He was transferred to the ICU with excellent hemodynamic and normal EKG. MELANIA / CARTER: [id number] /
[2022-04-01 20:10] LABS: Glucose,Whole Blood 132 mg/dL (70-110)
--- NOTE | 2022-04-01 20:30 | XR ---
EXAMINATION TYPE: XR chest 1V portable DATE OF EXAM: 04/01/2022 COMPARISON: Today HISTORY: Catheter placement TECHNIQUE: FINDINGS: There is right jugular catheter and the tip appears to be in the proximal main pulmonary ar pita. There are sternal wires. There are chest leads. There is drainage catheter over the left cardia c border. There is blunting of the costophrenic angles. No gross heart failure. IMPRESSION: Small pleural effusions are slightly increased compared to exam 8 hours ago. No gross hea rt failure. Catheter tip appears to be in the main pulmonary artery.
[2022-04-01] MEDS ORDERED: METOPROLOL TARTRATE 25 MG TAB PO STA (20:49)
[2022-04-01] MEDS ORDERED: ATORVASTATIN 40 MG TAB PO SCH (21:00)
[2022-04-01] MEDS: POTASSIUM CHLORIDE 10 MEQ in WATER FOR INJECTION 1 100ML.BAG IVPB SCH ×2 (21:00→22:15)
[2022-04-01] MEDS: VIT A,C & E-LUTEIN-MINERALS 1 EACH TAB PO SCH (21:03)
[2022-04-01 21:20] LABS: Glucose,Whole Blood 148 mg/dL (70-110)
[2022-04-01 22:10] LABS: Glucose,Whole Blood 144 mg/dL (70-110)
[2022-04-01 23:09] LABS: Glucose,Whole Blood 144 mg/dL (70-110)
[2022-04-01] MEDS ORDERED: HYDROcodone/APAP 5-325MG 1 EACH TAB PO PRN (23:37)
[2022-04-02] MEDS: KETOROLAC 15 MG/ML 1 ML VIAL IVP SCH ×5 (00:13→23:16)
[2022-04-02 00:38] LABS: Glucose,Whole Blood 121 mg/dL (70-110)
[2022-04-02 01:16] LABS: Glucose,Whole Blood 128 mg/dL (70-110)
[2022-04-02 02:12] LABS: Glucose,Whole Blood 118 mg/dL (70-110)
[2022-04-02 03:15] LABS: Glucose,Whole Blood 111 mg/dL (70-110)
[2022-04-02 04:19] LABS: Glucose,Whole Blood 120 mg/dL (70-110)
[2022-04-02] MEDS: HYDROcodone/APAP 5-325MG 1 EACH TAB PO PRN (04:45)
[2022-04-02 05:09] LABS: Glucose,Whole Blood 116 mg/dL (70-110)
[2022-04-02 05:18] LABS: Basophils % (A) 0 %; Eosinophils # (A) 0.1 k/uL (0-0.7); Eosinophils % (A) 1 %; HCT 33.6 % (39.0-53.0); HGB 11.5 gm/dL (13.0-17.5); Lymphocytes # (A) 0.7 k/uL (1.0-4.8); Lymphocytes % (A) 7 %; MCH 29.6 pg (25.0-35.0); MCHC 34.1 g/dL (31.0-37.0); MCV 86.8 fL (80.0-100.0); Mean Platelet Volume 8.8; Monocytes # (A) 0.4 k/uL (0-1.0); Monocytes % (A) 4 %; Neutrophils # (A) 8.7 k/uL (1.3-7.7); Neutrophils % (A) 87 %; Platelet Count 141 k/uL (150-450); RBC 3.87 m/uL (4.30-5.90); RDW 12.6 % (11.5-15.5); WBC 9.9 k/uL (3.8-10.6)
[2022-04-02 05:25] LABS: Ionized Calcium 4.9 mg/dL (4.5-5.3)
[2022-04-02 05:41] LABS: ALT 20 U/L (4-49); AST 27 U/L (17-59); African American GFR (CKD) >90 (>60 ml/min/1.73 sqM); Albumin 3.6 g/dL (3.5-5.0); Alkaline Phosphatase 48 U/L (38-126); Anion Gap 8 mmol/L; Blood Urea Nitrogen 11 mg/dL (9-20); Carbon Dioxide 23 mmol/L (22-30); Chloride 103 mmol/L (98-107); Glucose 115 mg/dL (74-99); Non-African American GFR(CKD) >90 (>60 ml/min/1.73 sqM); Potassium 4.4 mmol/L (3.5-5.1); Sodium 134 mmol/L (137-145); Total Protein 5.3 g/dL (6.3-8.2)
[2022-04-02] MEDS: ALBUMIN HUMAN 5% 250 ML in EMPTY BAG 1 BAG IVPB PRN (06:32)
[2022-04-02 06:50] LABS: Glucose,Whole Blood 120 mg/dL (70-110)
[2022-04-02] MEDS: IPRATROPIUM-ALBUTEROL 3 ML NEB INHALATION SCH ×4 (07:38→19:46)
[2022-04-02] MEDS ORDERED: FUROSEMIDE 10 MG/ML 2 ML VIAL IV STA (07:42)
--- NOTE | 2022-04-02 08:02 | XR ---
EXAMINATION TYPE: XR chest 1V portable DATE OF EXAM: 04/02/2022 COMPARISON: Chest x-ray 04/01/2022 HISTORY: Postop cardiac surgery, abnormal chest x-ray TECHNIQUE: Single frontal view of the chest is obtained. FINDINGS: Patient is post median sternotomy and rotated, there is left atrial appendage clip placeme nt. Cardiac mediastinal silhouette is likely stable, exam is expiratory. No evident pneumothorax. Ret rocardiac density persists, the left hemidiaphragm is obscured and this blunting left costophrenic an gle. Basilar left-sided chest tube is in place. Right jugular central venous catheter is noted with t he tip likely in the right pulmonary artery or segmental pulmonary artery, median sternal drains, cat heter tip is overlying the right atrium. IMPRESSION: Left lower lobe atelectasis and associated effusion. Expiratory rotated exam, follow-up suggested
--- NOTE | 2022-04-02 08:02 | P.CRDCN ---
History of Present Illness Consult date: 04/02/22 Chief complaint: Status post CABG History of present illness: The patient is a 71-year-old gentleman who is known to our service and follows with Dr. Montejo regularly who underwent recently as an outpatient workup for angina. He underwent a heart catheterization and that revealed occluded LAD by the bifurcation of the diagonal branch which has a severe disease. He also underwent an echocardiogram which revealed preserved left ventricular systolic function with no significant valvular abnormalities. The patient was referred for open heart and he underwent yesterday CABG. He underwent LEY to a diagonal and LAD. The procedure/surgery was uneventful and the patient was extubated yesterday. He was seen this morning. Overall he is stable from the cardiac vascular standpoint of view and currently is not on any vasopressors or any in otropic. He is entertaining normal sinus mechanism. The chest x-ray this morning showed small bilateral pleural effusion. His hemoglobin is is stable. His GFR is above 60. Urine output is reasonable. In terms off medication he is currently on dual antiplatelet therapy along with beta rafa as well as intermediate intensity statin. He was sitting in the chart does not look in any pain or any distress when he was seen this morning. Past Medical History Past Medical History: Chest Pain / Angina, GERD/Reflux, Hearing Disorder / Deafness, Hyperlipidemia, Hypertension, Osteoarthritis (OA) Additional Past Medical History / Comment(s): limited ROM rt shoulder, HISTORY OF KIDNEY STONES 2010., very sensitive to changes in BP, some SOB w/exertion, possible sleep apnea, no sleep study yet History of Any Multi-Drug Resistant Organisms: None Reported Past Surgical History: Heart Catheterization, Joint Replacement, Orthopedic Surgery Additional Past Surgical History / Comment(s): rt shoulder rotator cuff repair,Andrea Acromioplasty of Shoulders; EXC SALIVARY GLAND STONE. Arthoscopy left knee. EGD, COLONOSCOPY 04/15/16,andrea knee replacements. Past Anesthesia/Blood Transfusion Reactions: Postoperative Nausea & Vomiting (PONV) Additional Past Anesthesia/Blood Transfusion Reaction / Comment(s): nausea with Anesthesia Smoking Status: Former smoker - Past Family History Father Family Medical History: Cancer Medications and Allergies Home Medications Medication Instructions Recorded Confirmed Type Omeprazole [PriLOSEC] 20 mg PO QAM 08/02/14 03/26/22 History atenoloL [Tenormin] 25 mg PO QAM 08/02/14 03/26/22 History Vit C/E/Zn/Coppr/Lutein/Zeaxan 1 each PO BID 04/18/20 03/26/22 History [Preservision Areds 2 Softgel] Aspirin [Adult Low Dose Aspirin EC] 81 mg PO DAILY 08/24/20 03/26/22 History Naproxen Sodium [Aleve] 440 mg PO BID PRN 08/24/20 03/26/22 History amLODIPine [Norvasc] 10 mg PO HS 02/12/22 03/26/22 History Nitroglycerin Sl Tabs [Nitrostat] 0.4 mg SUBLINGUAL Q5M PRN #25 tab 02/13/22 03/26/22 Rx Atorvastatin [Lipitor] 40 mg PO HS 03/26/22 03/26/22 History Ubidecarenone [Co Q-10] 100 mg PO DAILY 03/26/22 03/26/22 History Allergies Allergy/AdvReac Type Severity Reaction Status Date / Time adhesive tape AdvReac skin Verified 03/26/22 09:32 blister Physical Exam Vitals: Vital Signs Temp Pulse Resp BP Pulse Ox FiO2 04/02/22 07:00 79 25 H 98 04/02/22 06:00 82 25 H 121/73 97 04/02/22 05:00 80 18 96 04/02/22 04:00 99.7 F H 87 22 121/73 97 04/02/22 03:55 20 04/02/22 03:00 79 20 97 04/02/22 02:00 78 16 94 L 04/02/22 01:00 77 16 118/70 94 L 04/02/22 00:00 77 17 95 04/01/22 23:30 98.6 F 79 18 94 L 04/01/22 23:00 79 14 116/72 95 04/01/22 22:30 78 15 93 L 04/01/22 22:00 80 13 93 L 04/01/22 21:30 81 13 130/79 94 L 04/01/22 21:00 98.1 F 82 13 94 L 04/01/22 20:30 82 12 95 04/01/22 20:00 98.1 F 82 14 97 04/01/22 19:00 78 15 93 L 04/01/22 18:45 77 15 92 L 04/01/22 18:30 79 16 94 L 04/01/22 18:15 79 16 94 L 04/01/22 18:00 79 16 95 04/01/22 17:45 79 16 95 04/01/22 17:30 80 16 93 L 04/01/22 17:15 78 16 92 L 04/01/22 17:00 82 13 95 04/01/22 16:45 82 17 97 04/01/22 16:30 84 17 97 04/01/22 16:15 73 15 96 04/01/22 16:08 50 04/01/22 16:00 71 15 97 50 04/01/22 15:57 50 04/01/22 15:45 73 14 97 04/01/22 15:30 68 14 98 04/01/22 15:24 70 04/01/22 15:18 100 04/01/22 15:16 69 04/01/22 15:15 70 13 99 04/01/22 15:00 69 14 98 04/01/22 14:45 99 14 98 04/01/22 14:30 66 14 98 04/01/22 14:15 68 14 97 04/01/22 14:04 50 04/01/22 14:00 68 14 98 04/01/22 13:50 68 14 98 04/01/22 13:40 69 14 98 04/01/22 13:30 69 14 99 04/01/22 13:20 72 14 99 04/01/22 13:10 73 14 98 04/01/22 13:00 70 14 98 04/01/22 12:50 72 14 98 04/01/22 12:43 60 04/01/22 12:40 70 14 100 04/01/22 12:30 69 14 100 04/01/22 12:20 68 14 99 04/01/22 12:10 67 14 99 04/01/22 12:03 100 04/01/22 12:02 74 14 99 Intake and Output 04/01/22 04/02/22 04/02/22 22:59 06:59 14:59 Intake Total 1097.501 944.457 Output Total 2740 905 Balance -1642.499 39.457 Intake: IV 956.5 893 ACETAMINOPHEN IV (For NPO 100 ) 1,000 mg In Empty Bag 1 bag @ 400 mls/hr IVPB Q6HR [facility] Rx#:[id number] Albumin Human 5% 250 ml 250 In Empty Bag 1 bag @ 250 mls/hr IVPB Q1HR PRN Rx#: [id number] CO/CI 130 80 Nitroglycerin-D5w Pmx 50 4.5 mg In Dextrose/Water 1 250ml.bag @ 5 MCG/MIN 1.5 mls/hr IV .Q24H [facility] Rx#: [id number] Potassium Chloride 10 meq 200 In Water For Injection 1 100ml.bag @ 100 mls/hr IVPB Q1H [facility] Rx#: [id number] Pressure Bags 72 63 Sodium Chloride 0.9% 1, 400 450 000 ml @ 50 mls/hr IV . Q20H [facility] Rx#:[id number] ceFAZolin 2 gm In Sodium 50 50 Chloride 0.9% 50 ml @ 100 mls/hr IVPB Q8HR [facility] Rx# :[id number] Intake, IV Titration 141.001 51.457 Amount Clevidipine Butyrate 25 135.000 44.799 mg In Empty Bag 1 bag @ 1 MG/HR 2 mls/hr IV .Q24H [facility] Rx#:[id number] Insulin Regular 100 unit 6.001 6.658 In Sodium Chloride 0.9% 100 ml @ Per Protocol IV .Q0M [facility] Rx#:[id number] Output: Chest Tube Drainage 240 120 Chest Tube Left Pleural/ 10 60 Mediastinal Chest Tube Mediastinal 230 60 Urine 2500 785 Other: Voiding Method Indwelling Catheter Indwelling Catheter Weight 102 kg ABP, PAP, CO, CI - Last 8 Hours Arterial Blood Pressure 116/51 Arterial Blood Pressure 150/60 Arterial Blood Pressure 136/57 Arterial Blood Pressure 119/56 Arterial Blood Pressure 145/60 Arterial Blood Pressure 151/59 Arterial Blood Pressure 144/61 Arterial Blood Pressure 146/58 Pulmonary Artery Pressure 26/10 Pulmonary Artery Pressure 30/13 Pulmonary Artery Pressure 34/15 Pulmonary Artery Pressure 38/16 Pulmonary Artery Pressure 35/16 Pulmonary Artery Pressure 34/15 Pulmonary Artery Pressure 34/16 Pulmonary Artery Pressure 33/15 Cardiac Output 5.2 Cardiac Output 5.5 Cardiac Output 7.2 Cardiac Index 2.5 Cardiac Index 2.6 Cardiac Index 3.4 - Constitutional General appearance: no acute distress - Respiratory Respiratory: bilateral: diminished - Cardiovascular Rhythm: regular Results 04/02/22 05:03 04/02/22 05:03 Cardiac Enzymes 04/01/22 04/02/22 Range/Units 12:16 05:03 AST 17 27 (17-59) U/L Coagulation 04/01/22 Range/Units 12:16 PT 12.6 H (9.0-12.0) sec APTT 30.8 H (22.0-30.0) sec CBC 04/01/22 04/01/22 04/01/22 Range/Units 12:16 14:36 18:00 WBC 6.7 7.2 9.5 (3.8-10.6) k/uL RBC 3.06 L 3.44 L 3.79 L (4.30-5.90) m/uL Hgb 8.9 L D 10.3 L 11.4 L (13.0-17.5) gm/dL Hct 26.6 L 29.8 L 33.1 L (39.0-53.0) % Plt Count 101 L 107 L 119 L (150-450) k/uL 04/02/22 Range/Units 05:03 WBC 9.9 (3.8-10.6) k/uL RBC 3.87 L (4.30-5.90) m/uL Hgb 11.5 L (13.0-17.5) gm/dL Hct 33.6 L (39.0-53.0) % Plt Count 141 L (150-450) k/uL Comprehensive Metabolic Panel 04/01/22 04/02/22 04/02/22 Range/Units 12:16 01:15 05:03 Sodium 138 134 L (137-145) mmol/L Potassium 3.6 4.1 4.4 (3.5-5.1) mmol/L Chloride 108 H 103 (98-107) mmol/L Carbon Dioxide 21 L 23 (22-30) mmol/L BUN 14 11 (9-20) mg/dL Creatinine 0.68 0.70 (0.66-1.25) mg/dL Glucose 101 H 115 H (74-99) mg/dL Calcium 7.4 L 8.0 L (8.4-10.2) mg/dL AST 17 27 (17-59) U/L ALT 17 20 (4-49) U/L Alkaline Phosphatase 39 48 (38-126) U/L Total Protein 4.4 L 5.3 L (6.3-8.2) g/dL Albumin 3.1 L 3.6 (3.5-5.0) g/dL Current Medications Generic Name Dose Route Start Last Admin Trade Name Freq PRN Reason Stop Dose Admin Hydrocodone Bitart/Acetaminophen 2 each 04/01/22 23:37 Hydrocodone/Apap 5-325mg 1 Each Tab PO Q4HR PRN Severe Pain (Scale 7 to 10) Hydrocodone Bitart/Acetaminophen 1 each 04/01/22 23:37 04/02/22 04:45 Hydrocodone/Apap 5-325mg 1 Each Tab PO 1 each Q4HR PRN Administration Moderate Pain (Scale 4 to 6) Albuterol/Ipratropium 3 ml 04/01/22 20:00 04/02/22 07:38 Ipratropium-Albuterol 3 Ml Neb INHALATION Not Given RT-QID [facility] Albuterol/Ipratropium 3 ml 04/01/22 12:15 Ipratropium-Albuterol 3 Ml Neb INHALATION RT-Q2H PRN Shortness Of Breath Or Wheezing Aspirin 325 mg 04/02/22 09:00 Aspirin 325 Mg Tab PO DAILY [facility] Atorvastatin Calcium 40 mg 04/01/22 21:00 04/01/22 21:00 Atorvastatin 40 Mg Tab PO 40 mg HS [facility] Administration Benzocaine/Menthol 1 each 04/01/22 12:15 Benzocaine/Menthol Lozeng 1 Each Lozenge MUCOUS MEM Q2H PRN Sore Throat Bisacodyl 10 mg 04/02/22 09:00 Bisacodyl 10 Mg Supp RECTAL DAILY PRN Constipation Clopidogrel Bisulfate 75 mg 04/02/22 09:00 Clopidogrel 75 Mg Tab PO DAILY [facility] Dextrose/Water 25 ml 04/01/22 12:15 Dextrose 50% Syringe 50 Ml IVP PER PROTOCOL PRN Hypoglycemia Protocol Dextrose/Water 50 ml 04/01/22 12:15 Dextrose 50% Syringe 50 Ml IVP PER PROTOCOL PRN Hypoglycemia Protocol Enoxaparin Sodium 40 mg 04/02/22 09:00 Enoxaparin 40 Mg/0.4 Ml Syringe SQ DAILY [facility] Amiodarone HCl 150 mg/ 103 mls @ 618 mls/hr 04/01/22 12:15 Dextrose/Water IV .Q10M PRN A.FIB/FLUTTER Protocol Amiodarone HCl 360 mg/ 207.2 mls @ 34.533 mls/hr 04/01/22 12:15 Dextrose/Water IV .Q6H PRN A.FIB/FLUTTER Protocol 1 MG/MIN Amiodarone HCl 450 mg/ 250 mls @ 16.667 mls/hr 04/01/22 12:15 Dextrose/Water IV .Q15H PRN A.FIB/FLUTTER Protocol 0.5 MG/MIN Albumin Human 250 ml/ IV 250 mls @ 250 mls/hr 04/01/22 12:15 04/02/22 06:32 Solution IVPB 04/03/22 12:16 250 mls/hr Q1HR PRN Administration For Volume Protocol Cefazolin Sodium 2 gm/ Sodium 50 mls @ 100 mls/hr 04/01/22 16:00 04/02/22 00:13 Chloride IVPB 04/02/22 08:29 100 mls/hr Q8HR [facility] Administration Protocol Calcium Gluconate/Sodium 100 mls @ 100 mls/hr 04/01/22 12:15 Chloride 2 gm/ IV Solution IVPB 04/11/22 23:00 ONCE PRN Ionized Calcium less than 4.4 Insulin Human Regular 100 unit 101 mls @ 0 mls/hr 04/01/22 12:15 04/02/22 04:25 / Sodium Chloride IV 0.5 units/hr .Q0M [facility] 0.505 mls/hr Titration Protocol Per Protocol Sodium Chloride 1,000 mls @ 50 mls/hr 04/01/22 12:15 04/01/22 13:23 Saline 0.9% IV 50 mls/hr .Q20H [facility] Administration Ketorolac Tromethamine 15 mg 04/01/22 18:00 04/02/22 06:37 Ketorolac 15 Mg/Ml 1 Ml Vial IVP 15 mg Q6HR [facility] Administration Magnesium Hydroxide 2,400 mg 04/02/22 09:00 Magnesium Hydroxide 2,400 Mg/10 Ml Cup PO BID PRN Constipation Metoclopramide HCl 10 mg 04/01/22 12:15 04/01/22 19:39 Metoclopramide 5 Mg/Ml 2 Ml Vial IVP 10 mg Q4H PRN Administration Nausea And Vomiting Metoprolol Tartrate 25 mg 04/02/22 09:00 Metoprolol Tartrate 25 Mg Tab PO BID [facility] Miscellaneous Information 1 each 04/01/22 12:15 Magnesium Replacement Protocol 1 Each Misc MISCELLANE DAILY PRN Per Protocol Protocol Miscellaneous Information 1 each 04/01/22 12:15 Potassium Replacement Protocol 1 Each Misc MISCELLANE DAILY PRN Per Protocol Protocol Multivitamins/Minerals 1 each 04/01/22 21:00 04/01/22 21:03 Vit A,C & K-Rqctva-Xpiguvkw 1 Each Tab PO 1 each BID [facility] Administration Ondansetron HCl 4 mg 04/01/22 12:15 04/01/22 17:13 Ondansetron 4 Mg/2 Ml Vial IVP 4 mg Q6HR PRN Administration Nausea And Vomiting Pantoprazole Sodium 40 mg 04/02/22 07:45 Pantoprazole 40 Mg Tablet PO AC-BRKFST [facility] Senna/Docusate Sodium 2 each 04/02/22 21:00 Sennosides-Docusate Sodium 1 Each Tab PO HS [facility] Sodium Chloride 10 ml 04/01/22 21:00 04/01/22 21:00 Sodium Chloride 0.9% Flush 10 Ml Syringe IV 10 ml BID [facility] Administration Intake and Output 04/01/22 04/02/22 04/02/22 22:59 06:59 14:59 Intake Total 1097.501 944.457 Output Total 2740 905 Balance -1642.499 39.457 Intake: IV 956.5 893 ACETAMINOPHEN IV (For NPO 100 ) 1,000 mg In Empty Bag 1 bag @ 400 mls/hr IVPB Q6HR [facility] Rx#:[id number] Albumin Human 5% 250 ml 250 In Empty Bag 1 bag @ 250 mls/hr IVPB Q1HR PRN Rx#: [id number] CO/CI 130 80 Nitroglycerin-D5w Pmx 50 4.5 mg In Dextrose/Water 1 250ml.bag @ 5 MCG/MIN 1.5 mls/hr IV .Q24H [facility] Rx#: [id number] Potassium Chloride 10 meq 200 In Water For Injection 1 100ml.bag @ 100 mls/hr IVPB Q1H [facility] Rx#: [id number] Pressure Bags 72 63 Sodium Chloride 0.9% 1, 400 450 000 ml @ 50 mls/hr IV . Q20H [facility] Rx#:[id number] ceFAZolin 2 gm In Sodium 50 50 Chloride 0.9% 50 ml @ 100 mls/hr IVPB Q8HR [facility] Rx# :[id number] Intake, IV Titration 141.001 51.457 Amount Clevidipine Butyrate 25 135.000 44.799 mg In Empty Bag 1 bag @ 1 MG/HR 2 mls/hr IV .Q24H [facility] Rx#:[id number] Insulin Regular 100 unit 6.001 6.658 In Sodium Chloride 0.9% 100 ml @ Per Protocol IV .Q0M [facility] Rx#:[id number] Output: Chest Tube Drainage 240 120 Chest Tube Left Pleural/ 10 60 Mediastinal Chest Tube Mediastinal 230 60 Urine 2500 785 Other: Voiding Method Indwelling Catheter Indwelling Catheter Weight 102 kg 04/02/22 05:03 04/02/22 05:03 Assessment and Plan Assessment: Assessment Severe 2 vessel CAD and status post CABG as described above Hypertension Dyslipidemia Plan Continue the current medical regimen Increase the dose of Lipitor into high intensity Continue dual antiplatelet therapy Continue beta rafa Continue monitor the kidney function and electrolytes Follow-up with the patient
[2022-04-02] MEDS: ASPIRIN 325 MG TAB PO SCH (08:49)
[2022-04-02] MEDS: ENOXAPARIN 40 MG/0.4 ML SYRINGE SQ SCH (08:50)
[2022-04-02] MEDS: METOPROLOL TARTRATE 25 MG TAB PO SCH ×2 (08:50→21:11)
[2022-04-02] MEDS: VIT A,C & E-LUTEIN-MINERALS 1 EACH TAB PO SCH ×2 (08:50→21:11)
[2022-04-02] MEDS: CLOPIDOGREL 75 MG TAB PO SCH (08:50)
[2022-04-02] MEDS ORDERED: METOPROLOL TARTRATE 12.5 MG TAB PO SCH (09:00)
[2022-04-02] MEDS ORDERED: PANTOPRAZOLE 40 MG/10 ML VIAL IVP SCH (09:00)
[2022-04-02] MEDS ORDERED: MAGNESIUM HYDROXIDE 2,400 MG/10 ML CUP PO PRN (09:00)
[2022-04-02] MEDS ORDERED: NON FORMULARY DRUG (Ubidecarenone [Co Q-10] 300 MG Capsule) PO SCH (09:00)
[2022-04-02 09:03] LABS: Glucose,Whole Blood 112 mg/dL (70-110)
[2022-04-02] MEDS: PANTOPRAZOLE 40 MG TABLET PO SCH (10:00)
--- NOTE | 2022-04-02 10:41 | P.PN ---
Subjective Progress Note Date: 04/02/22 Principal diagnosis: Coronary artery disease with total occlusion of the left anterior descending coronary artery, and overall preserved left ventricular function. Past medical history significant for hypertension, hyperlipidemia, osteoarthritis hearing disorder and GERD. POD #1 off-pump total arterial coronary artery bypass grafting using left internal mammary artery to the diagonal coronary artery and a [id number] fashion, then to the left anterior descending coronary artery in an end side fashion. Exclusion of left atrial appendage using a 40 mm Atriclip, intraopera tive graft flow measurements using the Neumitra sytem and intraoperative transesophageal echocardiogram. Postoperative acute blood loss anemia, expected secondary to hemodilution. The patient was seen and examined in follow-up today 04/02/2022 is bedside in the intensive care unit. Currently sitting up to the bedside chair, is awake, alert, oriented 3 and has no acute distress. He was successfully extubated at 4:56 PM yesterday afternoon and is currently on 2 L nasal cannula with oxygen saturations 97%. Bedside telemetry showing normal sinus rhythm heart rate 76 BPM. He remains hemodynamically stable with current hemodynamic showing a cardiac output of 5.2, cardiac index 2.5, PA pressures 37/12 and a CVP of 3 mmHg. Nitroglycerin drip remains infusing at 5 mcg/m. Mediastinal and left pleural Allen drains remain in place to low continuous wall suction -20 cm H2O. No air leak is present. Draining thin serosanguineous drainage. Mediastinal chest tubes drained 60 mL output last 8 hours and 490 mL output since surgery. Left pleural Allen drain drained 60 mL output in the last 8 hours and 290 mL output since surgery. Martinez cath remains for accurate I's and O's. Urine output 785 mL output in the last 8 hours. Laboratory results this morning show a WBC count of 9.9, hemoglobin 11.5, hematocrit 33.6, platelets 141, sodium 134, potassium 4.4, chloride 103, CO2 23, BUN 11, creatinine 0.70, calcium 8.0, ionized calcium 4.9 and magnesium 2.0. Objective - Vital Signs Vital signs: Vital Signs Temp 99.7 F H 04/02/22 04:00 Pulse 79 04/02/22 07:00 Resp 25 H 04/02/22 07:00 BP 121/73 04/02/22 06:00 Pulse Ox 98 04/02/22 07:00 FiO2 50 04/01/22 16:08 Intake & Output 04/01/22 04/02/22 04/02/22 18:59 06:59 18:59 Intake Total 132.789 4709.905 2.331 Output Total 3525 2195 Balance -2795.547 -568.095 2.331 Weight 102 kg Intake: IV 683.0 1480.5 ACETAMINOPHEN IV (For NPO 100 100 ) 1,000 mg In Empty Bag 1 bag @ 400 mls/hr IVPB Q6HR JANAK Rx#:[id number] Albumin Human 5% 250 ml 250 In Empty Bag 1 bag @ 250 mls/hr IVPB Q1HR PRN Rx#: [id number] CO/CI 120 130 Nitroglycerin-D5w Pmx 50 6.0 1.5 mg In Dextrose/Water 1 250ml.bag @ 5 MCG/MIN 1.5 mls/hr IV .Q24H JANAK Rx#: [id number] Potassium Chloride 10 meq 200 In Water For Injection 1 100ml.bag @ 100 mls/hr IVPB Q1H JANAK Rx#: [id number] Pressure Bags 54 99 Sodium Chloride 0.9% 1, 300 650 000 ml @ 50 mls/hr IV . Q20H JANAK Rx#:[id number] ceFAZolin 2 gm In Sodium 50 50 Chloride 0.9% 50 ml @ 100 mls/hr IVPB Q8HR JANAK Rx# :[id number] Intake, IV Titration 46.453 146.405 2.331 Amount Clevidipine Butyrate 25 43.600 136.599 mg In Empty Bag 1 bag @ 1 MG/HR 2 mls/hr IV .Q24H JANAK Rx#:[id number] Insulin Regular 100 unit 2.853 9.806 2.331 In Sodium Chloride 0.9% 100 ml @ Per Protocol IV .Q0M JANAK Rx#:[id number] Output: Chest Tube Drainage 600 210 Chest Tube Left Pleural/ 238 60 Mediastinal Chest Tube Mediastinal 362 150 Urine 2525 1985 Estimated Blood Loss 400 Other: Voiding Method Indwelling Catheter Indwelling Catheter ABP, PAP, CO, CI - Last Documented Arterial Blood Pressure 116/51 Pulmonary Artery Pressure 26/10 Cardiac Output 5.2 Cardiac Index 2.5 - Exam CONSTITUTIONAL: Sitting up to the bedside chair in the intensive care unit, appears comfortable, cooperative, no apparent acute distress. HEENT: Neck is supple, no JVD, no lymphadenopathy. Right IJ Cordis and [place]- Gavin catheter in place and functioning. RESPIRATORY: Lungs sounds essentially clear throughout, diminished to his bilateral bases. Respirations are symmetrical and nonlabored. Currently on 2 L nasal cannula with oxygen saturations 97%. Able to achieve 1500 mL on his incentive spirometry. Strong cough. CARDIOVASCULAR: Regular rhythm and rate. S1 and S2 present, negative for S3, gallop or murmur. Sternum is stable. Palpable peripheral pulses bilaterally, no edema present. No calf pain or tenderness noted. Heart hugger in place with patient demonstrating appropriate use. Knee-high [place]ON hose and sequential compression devices in place to his bilateral lower extremities. GASTROINTESTINAL: Abdomen soft, nontender, nondistended. Hypoactive bowel sounds present 4 quadrants. Tolerating diet. Passing flatus. No guarding or rigidity. GENITOURINARY: Martinez present draining clear, yellow urine. Urine output 785 ml in the last 8 hours. INTEGUMENTARY: Skin is warm and dry with no evidence of clubbing or cyanosis. Midline sternal incision clean dry and well approximated, covered with dry intact dressing. NEUROLOGIC: Cranial nerves II through XII intact. No focal deficits. MUSKULOSKELETAL: Able to move all extremities, strength equal bilaterally. PSYCHIATRIC: Alert and oriented to person place and time, appropriate affect, intact judgment and insight. INVASIVE LINES AND TUBES: Mediastinal/left pleural Allen chest tubes present and connected to low continuous wall suction, no air leaks present. Mediastinal tubes with 60 mL of thin serosanguineous drainage overnight, 490 mL output in the last 24 hours. Left pleural chest tube with 60 mL of thin serosanguineous drainage overnight, 290 mL output in the last 24 hours. Right internal jugular [place]/Cordis, right radial arterial line present. Last CO 5.2, CI 2.5, PA 32/12 and CVP 3 mmHg. - Allied health notes Allied health notes reviewed: nursing - Labs CBC & Chem 7: 04/02/22 05:03 04/02/22 05:03 Labs: Abnormal Lab Results - Last 24 Hours (Table) 03/26/22 04/01/22 04/01/22 Range/Units 09:12 11:33 12:16 RBC 3.06 L (4.30-5.90) m/uL Hgb 8.9 L D (13.0-17.5) gm/dL Hct 26.6 L (39.0-53.0) % Plt Count 101 L (150-450) k/uL Neutrophils # (1.3-7.7) k/uL Lymphocytes # (1.0-4.8) k/uL PT (9.0-12.0) sec INR (<1.2) APTT (22.0-30.0) sec ABG pH (7.35-7.45) ABG pO2 268 H (83-108) mmHg ABG Total CO2 (19-24) mmol/L ABG O2 Saturation 99.6 H (94-97) % ABG Hematocrit 29 L (34.0-46.0) % ABG Glucose 108 H (75-99) mg/dL Hemoglobin 9.4 L (13.0-17.5) gm/dL Sodium (137-145) mmol/L Chloride (98-107) mmol/L Carbon Dioxide (22-30) mmol/L Glucose (74-99) mg/dL POC Glucose (mg/dL) (70-110) mg/dL Calcium (8.4-10.2) mg/dL Total Protein (6.3-8.2) g/dL Albumin (3.5-5.0) g/dL Arterial Blood Glucose 108 H (75-99) mg/dL Crossmatch See Detail 04/01/22 04/01/22 04/01/22 Range/Units 12:16 12:16 12:39 RBC (4.30-5.90) m/uL Hgb (13.0-17.5) gm/dL Hct (39.0-53.0) % Plt Count (150-450) k/uL Neutrophils # (1.3-7.7) k/uL Lymphocytes # (1.0-4.8) k/uL PT 12.6 H (9.0-12.0) sec INR 1.2 H (<1.2) APTT 30.8 H (22.0-30.0) sec ABG pH (7.35-7.45) ABG pO2 277 H (83-108) mmHg ABG Total CO2 25 H (19-24) mmol/L ABG O2 Saturation 100.0 H (94-97) % ABG Hematocrit (34.0-46.0) % ABG Glucose (75-99) mg/dL Hemoglobin (13.0-17.5) gm/dL Sodium (137-145) mmol/L Chloride 108 H (98-107) mmol/L Carbon Dioxide 21 L (22-30) mmol/L Glucose 101 H (74-99) mg/dL POC Glucose (mg/dL) (70-110) mg/dL Calcium 7.4 L (8.4-10.2) mg/dL Total Protein 4.4 L (6.3-8.2) g/dL Albumin 3.1 L (3.5-5.0) g/dL Arterial Blood Glucose (75-99) mg/dL Crossmatch 04/01/22 04/01/22 04/01/22 Range/Units 13:58 14:36 14:59 RBC 3.44 L (4.30-5.90) m/uL Hgb 10.3 L (13.0-17.5) gm/dL Hct 29.8 L (39.0-53.0) % Plt Count 107 L (150-450) k/uL Neutrophils # (1.3-7.7) k/uL Lymphocytes # (1.0-4.8) k/uL PT (9.0-12.0) sec INR (<1.2) APTT (22.0-30.0) sec ABG pH (7.35-7.45) ABG pO2 (83-108) mmHg ABG Total CO2 (19-24) mmol/L ABG O2 Saturation (94-97) % ABG Hematocrit (34.0-46.0) % ABG Glucose (75-99) mg/dL Hemoglobin (13.0-17.5) gm/dL Sodium (137-145) mmol/L Chloride (98-107) mmol/L Carbon Dioxide (22-30) mmol/L Glucose (74-99) mg/dL POC Glucose (mg/dL) 119 H 123 H (70-110) mg/dL Calcium (8.4-10.2) mg/dL Total Protein (6.3-8.2) g/dL Albumin (3.5-5.0) g/dL Arterial Blood Glucose (75-99) mg/dL Crossmatch 04/01/22 04/01/22 04/01/22 Range/Units 16:13 16:38 17:06 RBC (4.30-5.90) m/uL Hgb (13.0-17.5) gm/dL Hct (39.0-53.0) % Plt Count (150-450) k/uL Neutrophils # (1.3-7.7) k/uL Lymphocytes # (1.0-4.8) k/uL PT (9.0-12.0) sec INR (<1.2) APTT (22.0-30.0) sec ABG pH 7.34 L (7.35-7.45) ABG pO2 110 H (83-108) mmHg ABG Total CO2 25 H (19-24) mmol/L ABG O2 Saturation 98.8 H (94-97) % ABG Hematocrit (34.0-46.0) % ABG Glucose (75-99) mg/dL Hemoglobin (13.0-17.5) gm/dL Sodium (137-145) mmol/L Chloride (98-107) mmol/L Carbon Dioxide (22-30) mmol/L Glucose (74-99) mg/dL POC Glucose (mg/dL) 152 H 156 H (70-110) mg/dL Calcium (8.4-10.2) mg/dL Total Protein (6.3-8.2) g/dL Albumin (3.5-5.0) g/dL Arterial Blood Glucose (75-99) mg/dL Crossmatch 04/01/22 04/01/22 04/01/22 Range/Units 18:00 18:06 18:55 RBC 3.79 L (4.30-5.90) m/uL Hgb 11.4 L (13.0-17.5) gm/dL Hct 33.1 L (39.0-53.0) % Plt Count 119 L (150-450) k/uL Neutrophils # 8.4 H (1.3-7.7) k/uL Lymphocytes # 0.6 L (1.0-4.8) k/uL PT (9.0-12.0) sec INR (<1.2) APTT (22.0-30.0) sec ABG pH (7.35-7.45) ABG pO2 (83-108) mmHg ABG Total CO2 (19-24) mmol/L ABG O2 Saturation (94-97) % ABG Hematocrit (34.0-46.0) % ABG Glucose (75-99) mg/dL Hemoglobin (13.0-17.5) gm/dL Sodium (137-145) mmol/L Chloride (98-107) mmol/L Carbon Dioxide (22-30) mmol/L Glucose (74-99) mg/dL POC Glucose (mg/dL) 135 H 139 H (70-110) mg/dL Calcium (8.4-10.2) mg/dL Total Protein (6.3-8.2) g/dL Albumin (3.5-5.0) g/dL Arterial Blood Glucose (75-99) mg/dL Crossmatch 04/01/22 04/01/22 04/01/22 Range/Units 20:08 21:19 22:08 RBC (4.30-5.90) m/uL Hgb (13.0-17.5) gm/dL Hct (39.0-53.0) % Plt Count (150-450) k/uL Neutrophils # (1.3-7.7) k/uL Lymphocytes # (1.0-4.8) k/uL PT (9.0-12.0) sec INR (<1.2) APTT (22.0-30.0) sec ABG pH (7.35-7.45) ABG pO2 (83-108) mmHg ABG Total CO2 (19-24) mmol/L ABG O2 Saturation (94-97) % ABG Hematocrit (34.0-46.0) % ABG Glucose (75-99) mg/dL Hemoglobin (13.0-17.5) gm/dL Sodium (137-145) mmol/L Chloride (98-107) mmol/L Carbon Dioxide (22-30) mmol/L Glucose (74-99) mg/dL POC Glucose (mg/dL) 132 H 148 H 144 H (70-110) mg/dL Calcium (8.4-10.2) mg/dL Total Protein (6.3-8.2) g/dL Albumin (3.5-5.0) g/dL Arterial Blood Glucose (75-99) mg/dL Crossmatch 04/01/22 04/02/22 04/02/22 Range/Units 23:07 00:27 01:14 RBC (4.30-5.90) m/uL Hgb (13.0-17.5) gm/dL Hct (39.0-53.0) % Plt Count (150-450) k/uL Neutrophils # (1.3-7.7) k/uL Lymphocytes # (1.0-4.8) k/uL PT (9.0-12.0) sec INR (<1.2) APTT (22.0-30.0) sec ABG pH (7.35-7.45) ABG pO2 (83-108) mmHg ABG Total CO2 (19-24) mmol/L ABG O2 Saturation (94-97) % ABG Hematocrit (34.0-46.0) % ABG Glucose (75-99) mg/dL Hemoglobin (13.0-17.5) gm/dL Sodium (137-145) mmol/L Chloride (98-107) mmol/L Carbon Dioxide (22-30) mmol/L Glucose (74-99) mg/dL POC Glucose (mg/dL) 144 H 121 H 128 H (70-110) mg/dL Calcium (8.4-10.2) mg/dL Total Protein (6.3-8.2) g/dL Albumin (3.5-5.0) g/dL Arterial Blood Glucose (75-99) mg/dL Crossmatch 04/02/22 04/02/22 04/02/22 Range/Units 02:11 03:14 04:17 RBC (4.30-5.90) m/uL Hgb (13.0-17.5) gm/dL Hct (39.0-53.0) % Plt Count (150-450) k/uL Neutrophils # (1.3-7.7) k/uL Lymphocytes # (1.0-4.8) k/uL PT (9.0-12.0) sec INR (<1.2) APTT (22.0-30.0) sec ABG pH (7.35-7.45) ABG pO2 (83-108) mmHg ABG Total CO2 (19-24) mmol/L ABG O2 Saturation (94-97) % ABG Hematocrit (34.0-46.0) % ABG Glucose (75-99) mg/dL Hemoglobin (13.0-17.5) gm/dL Sodium (137-145) mmol/L Chloride (98-107) mmol/L Carbon Dioxide (22-30) mmol/L Glucose (74-99) mg/dL POC Glucose (mg/dL) 118 H 111 H 120 H (70-110) mg/dL Calcium (8.4-10.2) mg/dL Total Protein (6.3-8.2) g/dL Albumin (3.5-5.0) g/dL Arterial Blood Glucose (75-99) mg/dL Crossmatch 04/02/22 04/02/22 04/02/22 Range/Units 05:03 05:03 05:07 RBC 3.87 L (4.30-5.90) m/uL Hgb 11.5 L (13.0-17.5) gm/dL Hct 33.6 L (39.0-53.0) % Plt Count 141 L (150-450) k/uL Neutrophils # 8.7 H (1.3-7.7) k/uL Lymphocytes # 0.7 L (1.0-4.8) k/uL PT (9.0-12.0) sec INR (<1.2) APTT (22.0-30.0) sec ABG pH (7.35-7.45) ABG pO2 (83-108) mmHg ABG Total CO2 (19-24) mmol/L ABG O2 Saturation (94-97) % ABG Hematocrit (34.0-46.0) % ABG Glucose (75-99) mg/dL Hemoglobin (13.0-17.5) gm/dL Sodium 134 L (137-145) mmol/L Chloride (98-107) mmol/L Carbon Dioxide (22-30) mmol/L Glucose 115 H (74-99) mg/dL POC Glucose (mg/dL) 116 H (70-110) mg/dL Calcium 8.0 L (8.4-10.2) mg/dL Total Protein 5.3 L (6.3-8.2) g/dL Albumin (3.5-5.0) g/dL Arterial Blood Glucose (75-99) mg/dL Crossmatch 04/02/22 04/02/22 Range/Units 06:48 09:02 RBC (4.30-5.90) m/uL Hgb (13.0-17.5) gm/dL Hct (39.0-53.0) % Plt Count (150-450) k/uL Neutrophils # (1.3-7.7) k/uL Lymphocytes # (1.0-4.8) k/uL PT (9.0-12.0) sec INR (<1.2) APTT (22.0-30.0) sec ABG pH (7.35-7.45) ABG pO2 (83-108) mmHg ABG Total CO2 (19-24) mmol/L ABG O2 Saturation (94-97) % ABG Hematocrit (34.0-46.0) % ABG Glucose (75-99) mg/dL Hemoglobin (13.0-17.5) gm/dL Sodium (137-145) mmol/L Chloride (98-107) mmol/L Carbon Dioxide (22-30) mmol/L Glucose (74-99) mg/dL POC Glucose (mg/dL) 120 H 112 H (70-110) mg/dL Calcium (8.4-10.2) mg/dL Total Protein (6.3-8.2) g/dL Albumin (3.5-5.0) g/dL Arterial Blood Glucose (75-99) mg/dL Crossmatch - Imaging and Cardiology Chest x-ray: report reviewed, image reviewed Assessment and Plan Assessment: 1. Coronary artery disease with total occlusion of the left anterior descending coronary artery, status post off-pump total arterial coronary artery bypass grafting 2 vessels 2. Hypertension 3. Hyperlipidemia 4. Osteoarthritis 5. Gastroesophageal reflux disease 6. Hard of hearing 7. Postoperative acute blood loss anemia, expected secondary to hemodilution Plan: 1. Continue to maximize medical therapy with full strength aspirin, statin, Plavix and beta rafa. We will increase metoprolol tartrate to 25 mg by mouth twice a day and increase his Lipitor to 80 mg by mouth daily at bedtime. 2. Discontinue nitroglycerin drip. 3. Bronchodilator management per pulmonary/critical care service. 4. Increase activity as tolerated, ambulate as tolerated. PT/OT/cardiac rehab consulted. 5. Will monitor daily labs and chest x-ray. Electrolyte replacement per protocol. 6. Pain control with current medication regimen. Toradol added for additional pain control. 7. Insulin management per internal medicine. Patient is not diabetic, preoperative hemaglobin A1c 5.6%. 8. We will discontinue swan, connect cordis to continuous CVP monitoring. 9. Continue chest tubes to low continuous wall suction -20 cm H2O for another 24 hours. 10. Continue martinez for another 24 hours for strict accurate intake and output. Daily weights. 11. Lasix 10 mg IV 1 now. 12. More recommendations to follow based on patient's clinical course Time with Patient: Greater than 30
[2022-04-02 10:49] VITALS: BMI 34.2
[2022-04-02 11:29] LABS: Glucose,Whole Blood 127 mg/dL (70-110)
--- NOTE | 2022-04-02 11:29 | P.PN ---
Subjective Progress Note Date: 04/02/22 Principal diagnosis: S/P CABG. Pulmonary/critical care consultation, 04/01/2022. 71-year-old male, that were asked to see in the intensive care unit, after having a two-vessel bypass grafting. He has a history of hypertension, hyperlipidemia, and gastroesophageal reflux disease. The patient apparently was having symptoms of shortness of breath on exertion, and dizziness, and echocardiogram showed evidence of inferior and inferior septal ischemia with normal systolic function at baseline. Cardiac catheterization was done by Dr. 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 The patient was sent to be evaluated by cardiothoracic surgery for bypass grafting. He is currently on the ventilator, with settings of volume assist control, rate of 14, tidal volume 500, FiO2 50%, and PEEP of 10. Blood gases on 100% show pO2 of 277, pCO2 39, pH is 7.38. The patient's cardiac output is 6.9, with an index of 3.3. The patient's currently on Cleveprex at 3 mg an hour, nitroglycerin at 5 mcg/m, and propofol at 25 mcg/kg/m. In addition, the patient is getting lactated Ringer's at 50 mL an hour. White count 6.7, hemoglobin 8.9, hematocrit 26.6, platelet count 201,000. Sodium 138, potassium 3.6, chlorides 108, CO2 21, BUN 14, creatinine 0.68. Chest x-ray shows postsurgical changes, as well as some bibasilar atelectasis. Progress note dated 04/02/2022. 71-year-old male seen in room 264. He was seen in consultation yesterday. The patient underwent a two-vessel bypass grafting. Today is postop day #1. He has a history of hypertension, hyperlipidemia, and GERD. Currently he is on 2 L of oxygen. He is getting saline at 20 mL an hour. The insulin drip is on hold. Other than for some pain, at the surgical site, the patient's doing reasonably well. White count 9.9, hemoglobin 11.5, hematocrit 33.6, and platelet count 241,000. Sodium 134, potassium 4.4, chlorides 103, CO2 23, BUN 11, creatinine 0.7. The patient's chest x-ray showing evidence of left lower lobe atelectasis, and a small effusion. Objective - Vital Signs Vital signs: Vital Signs Temp 99.7 F H 04/02/22 04:00 Pulse 81 04/02/22 10:00 Resp 16 04/02/22 10:00 BP 121/73 04/02/22 06:00 Pulse Ox 95 04/02/22 10:00 FiO2 50 04/01/22 16:08 Intake & Output 04/01/22 04/02/22 04/02/22 18:59 06:59 18:59 Intake Total 241.230 4377.905 156.331 Output Total 3525 2195 550 Balance -2795.547 -568.095 -393.669 Weight 102 kg 102 kg Intake: IV 683.0 1480.5 154 ACETAMINOPHEN IV (For NPO 100 100 ) 1,000 mg In Empty Bag 1 bag @ 400 mls/hr IVPB Q6HR JANAK Rx#:[id number] Albumin Human 5% 250 ml 250 In Empty Bag 1 bag @ 250 mls/hr IVPB Q1HR PRN Rx#: [id number] CO/CI 120 130 20 Nitroglycerin-D5w Pmx 50 6.0 1.5 mg In Dextrose/Water 1 250ml.bag @ 5 MCG/MIN 1.5 mls/hr IV .Q24H JANAK Rx#: [id number] Potassium Chloride 10 meq 200 In Water For Injection 1 100ml.bag @ 100 mls/hr IVPB Q1H JANAK Rx#: [id number] Pressure Bags 54 99 24 Sodium Chloride 0.9% 1, 300 650 60 000 ml @ 50 mls/hr IV . Q20H JANAK Rx#:[id number] ceFAZolin 2 gm In Sodium 50 50 50 Chloride 0.9% 50 ml @ 100 mls/hr IVPB Q8HR JANAK Rx# :[id number] Intake, IV Titration 46.453 146.405 2.331 Amount Clevidipine Butyrate 25 43.600 136.599 mg In Empty Bag 1 bag @ 1 MG/HR 2 mls/hr IV .Q24H JANAK Rx#:[id number] Insulin Regular 100 unit 2.853 9.806 2.331 In Sodium Chloride 0.9% 100 ml @ Per Protocol IV .Q0M JANAK Rx#:[id number] Output: Chest Tube Drainage 600 210 Chest Tube Left Pleural/ 238 60 Mediastinal Chest Tube Mediastinal 362 150 Urine 2525 1985 550 Estimated Blood Loss 400 Other: Voiding Method Indwelling Catheter Indwelling Catheter Indwelling Catheter ABP, PAP, CO, CI - Last Documented Arterial Blood Pressure 132/52 Pulmonary Artery Pressure 20/6 Cardiac Output 5.2 Cardiac Index 2.5 - Exam No acute distress, oriented 3. Currently on 2 L of oxygen. HEENT examination is grossly unremarkable. Neck supple. Full range of motion. No adenopathy thyromegaly or neck vein di stention. Cardiovascular examination reveals regular rhythm rate. S1-S2 normal. No S3 or S4. No discernible murmur noted. Heart rate 81 bpm. Lungs reveal mostly clear breath sounds. Scattered rhonchi are noted. No wheezes or crackles. Breath sounds equal bilaterally. 2 L saturation is 97%. Abdomen soft bowel sounds are heard. No masses or tenderness. Extremities are intact. No cyanosis clubbing or edema. Skin is without rash or lesion. Neurologic examination is brief but nonfocal. - Labs CBC & Chem 7: 04/02/22 05:03 04/02/22 05:03 Labs: Abnormal Lab Results - Last 24 Hours (Table) 03/26/22 04/01/22 04/01/22 Range/Units 09:12 11:33 12:16 RBC 3.06 L (4.30-5.90) m/uL Hgb 8.9 L D (13.0-17.5) gm/dL Hct 26.6 L (39.0-53.0) % Plt Count 101 L (150-450) k/uL Neutrophils # (1.3-7.7) k/uL Lymphocytes # (1.0-4.8) k/uL PT (9.0-12.0) sec INR (<1.2) APTT (22.0-30.0) sec ABG pH (7.35-7.45) ABG pO2 268 H (83-108) mmHg ABG Total CO2 (19-24) mmol/L ABG O2 Saturation 99.6 H (94-97) % ABG Hematocrit 29 L (34.0-46.0) % ABG Glucose 108 H (75-99) mg/dL Hemoglobin 9.4 L (13.0-17.5) gm/dL Sodium (137-145) mmol/L Chloride (98-107) mmol/L Carbon Dioxide (22-30) mmol/L Glucose (74-99) mg/dL POC Glucose (mg/dL) (70-110) mg/dL Calcium (8.4-10.2) mg/dL Total Protein (6.3-8.2) g/dL Albumin (3.5-5.0) g/dL Arterial Blood Glucose 108 H (75-99) mg/dL Crossmatch See Detail 04/01/22 04/01/22 04/01/22 Range/Units 12:16 12:16 12:39 RBC (4.30-5.90) m/uL Hgb (13.0-17.5) gm/dL Hct (39.0-53.0) % Plt Count (150-450) k/uL Neutrophils # (1.3-7.7) k/uL Lymphocytes # (1.0-4.8) k/uL PT 12.6 H (9.0-12.0) sec INR 1.2 H (<1.2) APTT 30.8 H (22.0-30.0) sec ABG pH (7.35-7.45) ABG pO2 277 H (83-108) mmHg ABG Total CO2 25 H (19-24) mmol/L ABG O2 Saturation 100.0 H (94-97) % ABG Hematocrit (34.0-46.0) % ABG Glucose (75-99) mg/dL Hemoglobin (13.0-17.5) gm/dL Sodium (137-145) mmol/L Chloride 108 H (98-107) mmol/L Carbon Dioxide 21 L (22-30) mmol/L Glucose 101 H (74-99) mg/dL POC Glucose (mg/dL) (70-110) mg/dL Calcium 7.4 L (8.4-10.2) mg/dL Total Protein 4.4 L (6.3-8.2) g/dL Albumin 3.1 L (3.5-5.0) g/dL Arterial Blood Glucose (75-99) mg/dL Crossmatch 04/01/22 04/01/22 04/01/22 Range/Units 13:58 14:36 14:59 RBC 3.44 L (4.30-5.90) m/uL Hgb 10.3 L (13.0-17.5) gm/dL Hct 29.8 L (39.0-53.0) % Plt Count 107 L (150-450) k/uL Neutrophils # (1.3-7.7) k/uL Lymphocytes # (1.0-4.8) k/uL PT (9.0-12.0) sec INR (<1.2) APTT (22.0-30.0) sec ABG pH (7.35-7.45) ABG pO2 (83-108) mmHg ABG Total CO2 (19-24) mmol/L ABG O2 Saturation (94-97) % ABG Hematocrit (34.0-46.0) % ABG Glucose (75-99) mg/dL Hemoglobin (13.0-17.5) gm/dL Sodium (137-145) mmol/L Chloride (98-107) mmol/L Carbon Dioxide (22-30) mmol/L Glucose (74-99) mg/dL POC Glucose (mg/dL) 119 H 123 H (70-110) mg/dL Calcium (8.4-10.2) mg/dL Total Protein (6.3-8.2) g/dL Albumin (3.5-5.0) g/dL Arterial Blood Glucose (75-99) mg/dL Crossmatch 04/01/22 04/01/22 04/01/22 Range/Units 16:13 16:38 17:06 RBC (4.30-5.90) m/uL Hgb (13.0-17.5) gm/dL Hct (39.0-53.0) % Plt Count (150-450) k/uL Neutrophils # (1.3-7.7) k/uL Lymphocytes # (1.0-4.8) k/uL PT (9.0-12.0) sec INR (<1.2) APTT (22.0-30.0) sec ABG pH 7.34 L (7.35-7.45) ABG pO2 110 H (83-108) mmHg ABG Total CO2 25 H (19-24) mmol/L ABG O2 Saturation 98.8 H (94-97) % ABG Hematocrit (34.0-46.0) % ABG Glucose (75-99) mg/dL Hemoglobin (13.0-17.5) gm/dL Sodium (137-145) mmol/L Chloride (98-107) mmol/L Carbon Dioxide (22-30) mmol/L Glucose (74-99) mg/dL POC Glucose (mg/dL) 152 H 156 H (70-110) mg/dL Calcium (8.4-10.2) mg/dL Total Protein (6.3-8.2) g/dL Albumin (3.5-5.0) g/dL Arterial Blood Glucose (75-99) mg/dL Crossmatch 04/01/22 04/01/22 04/01/22 Range/Units 18:00 18:06 18:55 RBC 3.79 L (4.30-5.90) m/uL Hgb 11.4 L (13.0-17.5) gm/dL Hct 33.1 L (39.0-53.0) % Plt Count 119 L (150-450) k/uL Neutrophils # 8.4 H (1.3-7.7) k/uL Lymphocytes # 0.6 L (1.0-4.8) k/uL PT (9.0-12.0) sec INR (<1.2) APTT (22.0-30.0) sec ABG pH (7.35-7.45) ABG pO2 (83-108) mmHg ABG Total CO2 (19-24) mmol/L ABG O2 Saturation (94-97) % ABG Hematocrit (34.0-46.0) % ABG Glucose (75-99) mg/dL Hemoglobin (13.0-17.5) gm/dL Sodium (137-145) mmol/L Chloride (98-107) mmol/L Carbon Dioxide (22-30) mmol/L Glucose (74-99) mg/dL POC Glucose (mg/dL) 135 H 139 H (70-110) mg/dL Calcium (8.4-10.2) mg/dL Total Protein (6.3-8.2) g/dL Albumin (3.5-5.0) g/dL Arterial Blood Glucose (75-99) mg/dL Crossmatch 04/01/22 04/01/22 04/01/22 Range/Units 20:08 21:19 22:08 RBC (4.30-5.90) m/uL Hgb (13.0-17.5) gm/dL Hct (39.0-53.0) % Plt Count (150-450) k/uL Neutrophils # (1.3-7.7) k/uL Lymphocytes # (1.0-4.8) k/uL PT (9.0-12.0) sec INR (<1.2) APTT (22.0-30.0) sec ABG pH (7.35-7.45) ABG pO2 (83-108) mmHg ABG Total CO2 (19-24) mmol/L ABG O2 Saturation (94-97) % ABG Hematocrit (34.0-46.0) % ABG Glucose (75-99) mg/dL Hemoglobin (13.0-17.5) gm/dL Sodium (137-145) mmol/L Chloride (98-107) mmol/L Carbon Dioxide (22-30) mmol/L Glucose (74-99) mg/dL POC Glucose (mg/dL) 132 H 148 H 144 H (70-110) mg/dL Calcium (8.4-10.2) mg/dL Total Protein (6.3-8.2) g/dL Albumin (3.5-5.0) g/dL Arterial Blood Glucose (75-99) mg/dL Crossmatch 04/01/22 04/02/22 04/02/22 Range/Units 23:07 00:27 01:14 RBC (4.30-5.90) m/uL Hgb (13.0-17.5) gm/dL Hct (39.0-53.0) % Plt Count (150-450) k/uL Neutrophils # (1.3-7.7) k/uL Lymphocytes # (1.0-4.8) k/uL PT (9.0-12.0) sec INR (<1.2) APTT (22.0-30.0) sec ABG pH (7.35-7.45) ABG pO2 (83-108) mmHg ABG Total CO2 (19-24) mmol/L ABG O2 Saturation (94-97) % ABG Hematocrit (34.0-46.0) % ABG Glucose (75-99) mg/dL Hemoglobin (13.0-17.5) gm/dL Sodium (137-145) mmol/L Chloride (98-107) mmol/L Carbon Dioxide (22-30) mmol/L Glucose (74-99) mg/dL POC Glucose (mg/dL) 144 H 121 H 128 H (70-110) mg/dL Calcium (8.4-10.2) mg/dL Total Protein (6.3-8.2) g/dL Albumin (3.5-5.0) g/dL Arterial Blood Glucose (75-99) mg/dL Crossmatch 04/02/22 04/02/22 04/02/22 Range/Units 02:11 03:14 04:17 RBC (4.30-5.90) m/uL Hgb (13.0-17.5) gm/dL Hct (39.0-53.0) % Plt Count (150-450) k/uL Neutrophils # (1.3-7.7) k/uL Lymphocytes # (1.0-4.8) k/uL PT (9.0-12.0) sec INR (<1.2) APTT (22.0-30.0) sec ABG pH (7.35-7.45) ABG pO2 (83-108) mmHg ABG Total CO2 (19-24) mmol/L ABG O2 Saturation (94-97) % ABG Hematocrit (34.0-46.0) % ABG Glucose (75-99) mg/dL Hemoglobin (13.0-17.5) gm/dL Sodium (137-145) mmol/L Chloride (98-107) mmol/L Carbon Dioxide (22-30) mmol/L Glucose (74-99) mg/dL POC Glucose (mg/dL) 118 H 111 H 120 H (70-110) mg/dL Calcium (8.4-10.2) mg/dL Total Protein (6.3-8.2) g/dL Albumin (3.5-5.0) g/dL Arterial Blood Glucose (75-99) mg/dL Crossmatch 04/02/22 04/02/22 04/02/22 Range/Units 05:03 05:03 05:07 RBC 3.87 L (4.30-5.90) m/uL Hgb 11.5 L (13.0-17.5) gm/dL Hct 33.6 L (39.0-53.0) % Plt Count 141 L (150-450) k/uL Neutrophils # 8.7 H (1.3-7.7) k/uL Lymphocytes # 0.7 L (1.0-4.8) k/uL PT (9.0-12.0) sec INR (<1.2) APTT (22.0-30.0) sec ABG pH (7.35-7.45) ABG pO2 (83-108) mmHg ABG Total CO2 (19-24) mmol/L ABG O2 Saturation (94-97) % ABG Hematocrit (34.0-46.0) % ABG Glucose (75-99) mg/dL Hemoglobin (13.0-17.5) gm/dL Sodium 134 L (137-145) mmol/L Chloride (98-107) mmol/L Carbon Dioxide (22-30) mmol/L Glucose 115 H (74-99) mg/dL POC Glucose (mg/dL) 116 H (70-110) mg/dL Calcium 8.0 L (8.4-10.2) mg/dL Total Protein 5.3 L (6.3-8.2) g/dL Albumin (3.5-5.0) g/dL Arterial Blood Glucose (75-99) mg/dL Crossmatch 04/02/22 04/02/22 Range/Units 06:48 09:02 RBC (4.30-5.90) m/uL Hgb (13.0-17.5) gm/dL Hct (39.0-53.0) % Plt Count (150-450) k/uL Neutrophils # (1.3-7.7) k/uL Lymphocytes # (1.0-4.8) k/uL PT (9.0-12.0) sec INR (<1.2) APTT (22.0-30.0) sec ABG pH (7.35-7.45) ABG pO2 (83-108) mmHg ABG Total CO2 (19-24) mmol/L ABG O2 Saturation (94-97) % ABG Hematocrit (34.0-46.0) % ABG Glucose (75-99) mg/dL Hemoglobin (13.0-17.5) gm/dL Sodium (137-145) mmol/L Chloride (98-107) mmol/L Carbon Dioxide (22-30) mmol/L Glucose (74-99) mg/dL POC Glucose (mg/dL) 120 H 112 H (70-110) mg/dL Calcium (8.4-10.2) mg/dL Total Protein (6.3-8.2) g/dL Albumin (3.5-5.0) g/dL Arterial Blood Glucose (75-99) mg/dL Crossmatch Assessment and Plan Assessment: Postop day #1, off pump two-vessel bypass grafting, LEY to LAD to diagonal, exclusion of left atrial appendage, and intraoperative transesophageal echocardiogram. Routine postoperative ventilator management, S/P successful extubation on 04/01/2022. History of hypertension. History of hyperlipidemia. History of gastroesophageal reflux disease. Plan: Plan dated 04/01/2022. The patient is seen in the intensive care unit. FiO2 was dropped from 100% to 50%, after the pO2 was found to be 277. Cardiac up at 6.9. Index is 3.3. The patient is on Cleveprex at 3 mg an hour, nitroglycerin at 5 mcg/m, and propofol at 25 mcg/kg/m. The patient's also receiving lactated Ringer's at 50 mL the patient will be extubated within the 6 hour window. Follow, make recommendations along the way. Post extubation, the patient will focus on deep breathing, coughing, and clearing of secretions, and hourly use of the incentive spirometer. Plan dated 04/02/2022. The patient is encouraged to deep breathe, cough, and clear secretions. We also encouraged the patient to use the incentive spirometer, every hour while awake. Labs, x-rays, medications are reviewed. Today's postop day #1. The patient appears to be doing reasonably well. He was extubated within the 6 hour window. We will continue to follow make recommendations. Prognosis is guarded. Time with Patient: Greater than 30
--- NOTE | 2022-04-02 13:05 | P.PN ---
Subjective Progress Note Date: 04/02/22 HISTORY OF PRESENT ILLNESS This is a 71-year-old male patient with past medical history of hypertension, hyperlipidemia, gastroesophageal reflux disease. Patient has been newly establi shed in my office. He has been having symptoms of dyspnea on exertion and dizziness. Stress echocardiogram showed evidence of inferior and inferior septal ischemia with a normal systolic function at baseline. On 02/14/2022, patient underwent cardiac catheterization with Dr. 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 Ipsilateral and contralateral collaterals to the left anterior descending artery. No significant obstructive disease in the left circumflex and right coronary ar pita. Right dominance. Recommendations were for the patient to be evaluated for coronary artery bypass grafting. Patient has been brought in the hospital by cardiothoracic team for CABG. Patient is seen on postop day 0. He is in the intensive care unit currently on a nitroglycerin drip, propofol drip and clevidipine drip. Patient is intubated and on mechanical ventilation with tidal volume 500, FiO2 60, PEEP 10. Patient appears to be comfortable. Hemoglobin 8.9, PLT 101, WBC 6.7. Potassium is 3.6. BUN 14 creatinine 0.68. Blood sugar 107. Postoperative chest x-ray reveals postop findings with left lower lobe atelectasis and associated effusion. Post median sternotomy change. 04/02: Patient is sitting up in his recliner today is feeling well, still have chest tubes i place, he is using spirometer, we will continue to increase activity, we will continue to follow up with patient very closely, pain is well controlled with [place], and he is tolerating full liquids, no new issues, we will switch from insulin drip to SSI. REVIEW OF SYSTEMS Patient is currently sedated on mechanical ventilation. Constitutional: No fever, no chills, no night sweats. No weight change. No weakness, fatigue or lethargy. No daytime sleepiness. EENT: No headache. No blurred vision or double vision, no loss of vision. No loss of Hearing, no ringing in the ears, no dizziness. No nasal drainage or congestion. No epistaxis. No sore throat. Lungs: No shortness of breath, cough, no sputum production. No wheezing. Cardiovascular: No chest pain, no lower extremity edema. No palpitations. No paroxysmal nocturnal dyspnea. No orthopnea. No lightheadedness or dizziness. No syncopal episodes. Abdominal: No abdominal pain. No nausea, vomiting. No diarrhea. No const ipation. No bloody or tarry stools. No loss of appetite. Genitourinary: No dysuria, increased frequency, urgency. No urinary retention. Yates catheter in place. Musculoskeletal: No myalgias. No muscle weakness, no gait dysfunction, no frequent falls. No back pain. No neck pain. Integumentary: No wounds, no lesions. No rash or pruritus. No unusual bruising. No change in hair or nails. Neurologic: No aphasia. No facial droop. No change in mentation. No head injury. No headache. No paralysis. No paresthesia. Psychiatric: No depression. No anxiety. No mood swings. Endocrine: No abnormal blood sugars. No weight change. No excessive sweating or thirst. No cold intolerance. PHYSICAL EXAMINATION Gen: This is a 71-year-old male. He is resting in the ICU bed appears to be comfortable. No acute distress noted. HEENT: Head is atraumatic, normocephalic. Pupils equal, round. Sclerae is anicteric. NECK: Supple. No JVD. No lymphadenopathy. No thyromegaly. Right-sided Cordis in place. LUNGS: Clear to auscultation. No wheezes or rhonchi. No intercostal retractions. Chest tube 3 with serosanguineous drainage. HEART: Regular rate and rhythm. No murmur. Dressing over sternal wound is dry and intact, no drainage noted. ABDOMEN: Soft. Bowel sounds are present. No masses. No tenderness. Yates catheter draining clear christine urine. EXTREMITIES: No pedal edema. No calf tenderness. Dorsalis pedis +2 bilaterally. Braeden wraps to the bilateral lower extremities, SCDs in place bilaterally NEUROLOGICAL: Patient is sedated on mechanical ventilation. ASSESSMENT AND PLAN 1. Coronary artery disease status post CABG, postop day #1. we will continue with ASA 81 mg po daily, Plavix 75 mg po daily and Atorvastatin 80 mg po daily, we will continue with current treatment plan, we will continue with Metoprolol 25 mg po bid 2. Acute hypoxic respiratory failure post extubation. we will continue with a ggessive pulmonary toiletting 3. Hypertension. Continue patient on Metoprolol 25 mg po bid 4. Hyperlipidemia. Continue atorvastatin 80 mg at bedtime. 5. Gastroesophageal reflux disease. Continue Protonix 40 mg daily. 6. Remote history of tobacco use. 7. DVT prophylaxis. Lovenox 40 mg subcu. 8. increase Activity. 9. Discontinue Insulin drip and placed him on SSI. Objective - Vital Signs Vital signs: Vital Signs Temp 98.2 F 04/02/22 12:00 Pulse 77 04/02/22 12:00 Resp 26 H 04/02/22 12:00 BP 121/73 04/02/22 06:00 Pulse Ox 96 04/02/22 12:00 FiO2 50 04/01/22 16:08 Intake & Output 04/01/22 04/02/22 04/02/22 18:59 06:59 18:59 Intake Total 110.201 1545.905 182.331 Output Total 3525 2195 800 Balance -2795.547 -568.095 -617.669 Weight 102 kg 102 kg Intake: IV 683.0 1480.5 180 ACETAMINOPHEN IV (For NPO 100 100 ) 1,000 mg In Empty Bag 1 bag @ 400 mls/hr IVPB Q6HR [facility] Rx#:[id number] Albumin Human 5% 250 ml 250 In Empty Bag 1 bag @ 250 mls/hr IVPB Q1HR PRN Rx#: [id number] CO/CI 120 130 20 Nitroglycerin-D5w Pmx 50 6.0 1.5 mg In Dextrose/Water 1 250ml.bag @ 5 MCG/MIN 1.5 mls/hr IV .Q24H [facility] Rx#: [id number] Potassium Chloride 10 meq 200 In Water For Injection 1 100ml.bag @ 100 mls/hr IVPB Q1H [facility] Rx#: [id number] Pressure Bags 54 99 30 Sodium Chloride 0.9% 1, 300 650 80 000 ml @ 50 mls/hr IV . Q20H [facility] Rx#:[id number] ceFAZolin 2 gm In Sodium 50 50 50 Chloride 0.9% 50 ml @ 100 mls/hr IVPB Q8HR [facility] Rx# :[id number] Intake, IV Titration 46.453 146.405 2.331 Amount Clevidipine Butyrate 25 43.600 136.599 mg In Empty Bag 1 bag @ 1 MG/HR 2 mls/hr IV .Q24H [facility] Rx#:[id number] Insulin Regular 100 unit 2.853 9.806 2.331 In Sodium Chloride 0.9% 100 ml @ Per Protocol IV .Q0M [facility] Rx#:[id number] Output: Chest Tube Drainage 600 210 100 Chest Tube Left Pleural/ 238 60 50 Mediastinal Chest Tube Mediastinal 362 150 50 Urine 2525 1985 700 Estimated Blood Loss 400 Other: Voiding Method Indwelling Catheter Indwelling Catheter Indwelling Catheter ABP, PAP, CO, CI - Last Documented Arterial Blood Pressure 113/54 Pulmonary Artery Pressure 20/6 Cardiac Output 5.2 Cardiac Index 2.5 - Labs CBC & Chem 7: 04/02/22 05:03 04/02/22 05:03 Labs: Abnormal Lab Results - Last 24 Hours (Table) 03/26/22 04/01/22 04/01/22 Range/Units 09:12 12:16 13:58 RBC (4.30-5.90) m/uL Hgb (13.0-17.5) gm/dL Hct (39.0-53.0) % Plt Count (150-450) k/uL Neutrophils # (1.3-7.7) k/uL Lymphocytes # (1.0-4.8) k/uL PT 12.6 H (9.0-12.0) sec INR 1.2 H (<1.2) APTT 30.8 H (22.0-30.0) sec ABG pH (7.35-7.45) ABG pO2 (83-108) mmHg ABG Total CO2 (19-24) mmol/L ABG O2 Saturation (94-97) % Sodium (137-145) mmol/L Glucose (74-99) mg/dL POC Glucose (mg/dL) 119 H (70-110) mg/dL Calcium (8.4-10.2) mg/dL Total Protein (6.3-8.2) g/dL Crossmatch See Detail 04/01/22 04/01/22 04/01/22 Range/Units 14:36 14:59 16:13 RBC 3.44 L (4.30-5.90) m/uL Hgb 10.3 L (13.0-17.5) gm/dL Hct 29.8 L (39.0-53.0) % Plt Count 107 L (150-450) k/uL Neutrophils # (1.3-7.7) k/uL Lymphocytes # (1.0-4.8) k/uL PT (9.0-12.0) sec INR (<1.2) APTT (22.0-30.0) sec ABG pH (7.35-7.45) ABG pO2 (83-108) mmHg ABG Total CO2 (19-24) mmol/L ABG O2 Saturation (94-97) % Sodium (137-145) mmol/L Glucose (74-99) mg/dL POC Glucose (mg/dL) 123 H 152 H (70-110) mg/dL Calcium (8.4-10.2) mg/dL Total Protein (6.3-8.2) g/dL Crossmatch 04/01/22 04/01/22 04/01/22 Range/Units 16:38 17:06 18:00 RBC 3.79 L (4.30-5.90) m/uL Hgb 11.4 L (13.0-17.5) gm/dL Hct 33.1 L (39.0-53.0) % Plt Count 119 L (150-450) k/uL Neutrophils # 8.4 H (1.3-7.7) k/uL Lymphocytes # 0.6 L (1.0-4.8) k/uL PT (9.0-12.0) sec INR (<1.2) APTT (22.0-30.0) sec ABG pH 7.34 L (7.35-7.45) ABG pO2 110 H (83-108) mmHg ABG Total CO2 25 H (19-24) mmol/L ABG O2 Saturation 98.8 H (94-97) % Sodium (137-145) mmol/L Glucose (74-99) mg/dL POC Glucose (mg/dL) 156 H (70-110) mg/dL Calcium (8.4-10.2) mg/dL Total Protein (6.3-8.2) g/dL Crossmatch 04/01/22 04/01/22 04/01/22 Range/Units 18:06 18:55 20:08 RBC (4.30-5.90) m/uL Hgb (13.0-17.5) gm/dL Hct (39.0-53.0) % Plt Count (150-450) k/uL Neutrophils # (1.3-7.7) k/uL Lymphocytes # (1.0-4.8) k/uL PT (9.0-12.0) sec INR (<1.2) APTT (22.0-30.0) sec ABG pH (7.35-7.45) ABG pO2 (83-108) mmHg ABG Total CO2 (19-24) mmol/L ABG O2 Saturation (94-97) % Sodium (137-145) mmol/L Glucose (74-99) mg/dL POC Glucose (mg/dL) 135 H 139 H 132 H (70-110) mg/dL Calcium (8.4-10.2) mg/dL Total Protein (6.3-8.2) g/dL Crossmatch 04/01/22 04/01/22 04/01/22 Range/Units 21:19 22:08 23:07 RBC (4.30-5.90) m/uL Hgb (13.0-17.5) gm/dL Hct (39.0-53.0) % Plt Count (150-450) k/uL Neutrophils # (1.3-7.7) k/uL Lymphocytes # (1.0-4.8) k/uL PT (9.0-12.0) sec INR (<1.2) APTT (22.0-30.0) sec ABG pH (7.35-7.45) ABG pO2 (83-108) mmHg ABG Total CO2 (19-24) mmol/L ABG O2 Saturation (94-97) % Sodium (137-145) mmol/L Glucose (74-99) mg/dL POC Glucose (mg/dL) 148 H 144 H 144 H (70-110) mg/dL Calcium (8.4-10.2) mg/dL Total Protein (6.3-8.2) g/dL Crossmatch 04/02/22 04/02/22 04/02/22 Range/Units 00:27 01:14 02:11 RBC (4.30-5.90) m/uL Hgb (13.0-17.5) gm/dL Hct (39.0-53.0) % Plt Count (150-450) k/uL Neutrophils # (1.3-7.7) k/uL Lymphocytes # (1.0-4.8) k/uL PT (9.0-12.0) sec INR (<1.2) APTT (22.0-30.0) sec ABG pH (7.35-7.45) ABG pO2 (83-108) mmHg ABG Total CO2 (19-24) mmol/L ABG O2 Saturation (94-97) % Sodium (137-145) mmol/L Glucose (74-99) mg/dL POC Glucose (mg/dL) 121 H 128 H 118 H (70-110) mg/dL Calcium (8.4-10.2) mg/dL Total Protein (6.3-8.2) g/dL Crossmatch 04/02/22 04/02/22 04/02/22 Range/Units 03:14 04:17 05:03 RBC 3.87 L (4.30-5.90) m/uL Hgb 11.5 L (13.0-17.5) gm/dL Hct 33.6 L (39.0-53.0) % Plt Count 141 L (150-450) k/uL Neutrophils # 8.7 H (1.3-7.7) k/uL Lymphocytes # 0.7 L (1.0-4.8) k/uL PT (9.0-12.0) sec INR (<1.2) APTT (22.0-30.0) sec ABG pH (7.35-7.45) ABG pO2 (83-108) mmHg ABG Total CO2 (19-24) mmol/L ABG O2 Saturation (94-97) % Sodium (137-145) mmol/L Glucose (74-99) mg/dL POC Glucose (mg/dL) 111 H 120 H (70-110) mg/dL Calcium (8.4-10.2) mg/dL Total Protein (6.3-8.2) g/dL Crossmatch 04/02/22 04/02/22 04/02/22 Range/Units 05:03 05:07 06:48 RBC (4.30-5.90) m/uL Hgb (13.0-17.5) gm/dL Hct (39.0-53.0) % Plt Count (150-450) k/uL Neutrophils # (1.3-7.7) k/uL Lymphocytes # (1.0-4.8) k/uL PT (9.0-12.0) sec INR (<1.2) APTT (22.0-30.0) sec ABG pH (7.35-7.45) ABG pO2 (83-108) mmHg ABG Total CO2 (19-24) mmol/L ABG O2 Saturation (94-97) % Sodium 134 L (137-145) mmol/L Glucose 115 H (74-99) mg/dL POC Glucose (mg/dL) 116 H 120 H (70-110) mg/dL Calcium 8.0 L (8.4-10.2) mg/dL Total Protein 5.3 L (6.3-8.2) g/dL Crossmatch 04/02/22 04/02/22 Range/Units 09:02 11:27 RBC (4.30-5.90) m/uL Hgb (13.0-17.5) gm/dL Hct (39.0-53.0) % Plt Count (150-450) k/uL Neutrophils # (1.3-7.7) k/uL Lymphocytes # (1.0-4.8) k/uL PT (9.0-12.0) sec INR (<1.2) APTT (22.0-30.0) sec ABG pH (7.35-7.45) ABG pO2 (83-108) mmHg ABG Total CO2 (19-24) mmol/L ABG O2 Saturation (94-97) % Sodium (137-145) mmol/L Glucose (74-99) mg/dL POC Glucose (mg/dL) 112 H 127 H (70-110) mg/dL Calcium (8.4-10.2) mg/dL Total Protein (6.3-8.2) g/dL Crossmatch
[2022-04-02 16:37] LABS: Glucose,Whole Blood 122 mg/dL (70-110)
[2022-04-02] MEDS: INSULIN ASPART (NovoLOG) 100 UNIT/ML VIAL SQ SCH ×2 (16:41→21:20)
[2022-04-02] MEDS: SODIUM CHLORIDE 0.9% 1,000 ML IV SCH (16:59)
[2022-04-02] MEDS: METOCLOPRAMIDE 5 MG/ML 2 ML VIAL IVP PRN (18:57)
[2022-04-02] MEDS: ATORVASTATIN 80 MG TAB PO SCH (21:11)
[2022-04-02] MEDS: SENNOSIDES-DOCUSATE SODIUM 1 EACH TAB PO SCH (21:11)
[2022-04-02 21:18] LABS: Glucose,Whole Blood 112 mg/dL (70-110)
[2022-04-03 05:20] LABS: Glucose,Whole Blood 128 mg/dL (70-110)
[2022-04-03] MEDS: ALBUMIN HUMAN 5% 250 ML in EMPTY BAG 1 BAG IVPB PRN (05:29)
[2022-04-03 05:49] LABS: Basophils % (A) 0 %; Eosinophils # (A) 0.3 k/uL (0-0.7); Eosinophils % (A) 3 %; HGB 11.1 gm/dL (13.0-17.5); Lymphocytes # (A) 1.3 k/uL (1.0-4.8); Lymphocytes % (A) 12 %; MCH 29.8 pg (25.0-35.0); MCHC 33.7 g/dL (31.0-37.0); MCV 88.3 fL (80.0-100.0); Mean Platelet Volume 9.2; Monocytes # (A) 0.7 k/uL (0-1.0); Monocytes % (A) 6 %; Neutrophils # (A) 8.9 k/uL (1.3-7.7); Neutrophils % (A) 78 %; Platelet Count 140 k/uL (150-450); RBC 3.74 m/uL (4.30-5.90); RDW 12.7 % (11.5-15.5); WBC 11.4 k/uL (3.8-10.6)
[2022-04-03 06:03] LABS: ALT 16 U/L (4-49); AST 22 U/L (17-59); African American GFR (CKD) >90 (>60 ml/min/1.73 sqM); Albumin 3.7 g/dL (3.5-5.0); Alkaline Phosphatase 56 U/L (38-126); Anion Gap 9 mmol/L; Blood Urea Nitrogen 19 mg/dL (9-20); Calcium 8.6 mg/dL (8.4-10.2); Carbon Dioxide 22 mmol/L (22-30); Chloride 105 mmol/L (98-107); Glucose 132 mg/dL (74-99); Non-African American GFR(CKD) 79 (>60 ml/min/1.73 sqM); Potassium 4.3 mmol/L (3.5-5.1); Sodium 136 mmol/L (137-145); Total Bilirubin 1.2 mg/dL (0.2-1.3); Total Protein 5.5 g/dL (6.3-8.2)
[2022-04-03] MEDS: SODIUM CHLORIDE 0.9% 1,000 ML IV SCH (06:37)
[2022-04-03] MEDS: KETOROLAC 15 MG/ML 1 ML VIAL IVP SCH ×3 (06:37→17:50)
[2022-04-03] MEDS: PANTOPRAZOLE 40 MG TABLET PO SCH (06:41)
[2022-04-03 06:45] LABS: Glucose,Whole Blood 129 mg/dL (70-110)
[2022-04-03] MEDS: INSULIN ASPART (NovoLOG) 100 UNIT/ML VIAL SQ SCH ×4 (06:58→21:53)
[2022-04-03] MEDS: IPRATROPIUM-ALBUTEROL 3 ML NEB INHALATION SCH ×4 (07:57→19:46)
--- NOTE | 2022-04-03 07:57 | XR ---
EXAMINATION TYPE: XR chest 1V portable DATE OF EXAM: 04/03/2022 COMPARISON: Chest x-ray 04/02/2022 HISTORY: Postop, abnormal chest x-ray TECHNIQUE: Single frontal view of the chest is obtained. FINDINGS: Lung volumes are low. Patient is rotated. Heart is likely enlarged. Right jugular central venous catheter has been removed. Median sternal drains, left chest tube remain in place, patient is post median sternotomy and left atrial appendage clip placement. No evident pneumothorax. Retrocardia c density persists, left hemidiaphragm is obscured. Interstitium and central vascularity mildly promi nent. IMPRESSION: Expiratory exam. Left lower lobe atelectasis and associated effusion, difficult to exclu de pneumonia, interstitial edema.
[2022-04-03] MEDS: HYDROcodone/APAP 5-325MG 1 EACH TAB PO PRN ×3 (08:20→21:47)
[2022-04-03] MEDS: CLOPIDOGREL 75 MG TAB PO SCH (09:21)
[2022-04-03] MEDS: VIT A,C & E-LUTEIN-MINERALS 1 EACH TAB PO SCH ×2 (09:21→21:48)
[2022-04-03] MEDS: bisacodyL 10 MG SUPP RECTAL PRN ×2 (09:21→09:23)
[2022-04-03] MEDS: METOPROLOL TARTRATE 50 MG TAB PO SCH ×2 (09:21→21:48)
[2022-04-03] MEDS: ASPIRIN 325 MG TAB PO SCH (09:21)
[2022-04-03] MEDS: ENOXAPARIN 40 MG/0.4 ML SYRINGE SQ SCH (09:21)
--- NOTE | 2022-04-03 09:43 | P.PN ---
Subjective Progress Note Date: 04/03/22 HISTORY OF PRESENT ILLNESS This is a 71-year-old male patient with past medical history of hypertension, hyperlipidemia, gastroesophageal reflux disease. Patient has been newly establi shed in my office. He has been having symptoms of dyspnea on exertion and dizziness. Stress echocardiogram showed evidence of inferior and inferior septal ischemia with a normal systolic function at baseline. On 02/14/2022, patient underwent cardiac catheterization with Dr. 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 Ipsilateral and contralateral collaterals to the left anterior descending artery. No significant obstructive disease in the left circumflex and right coronary ar pita. Right dominance. Recommendations were for the patient to be evaluated for coronary artery bypass grafting. Patient has been brought in the hospital by cardiothoracic team for CABG. Patient is seen on postop day 0. He is in the intensive care unit currently on a nitroglycerin drip, propofol drip and clevidipine drip. Patient is intubated and on mechanical ventilation with tidal volume 500, FiO2 60, PEEP 10. Patient appears to be comfortable. Hemoglobin 8.9, PLT 101, WBC 6.7. Potassium is 3.6. BUN 14 creatinine 0.68. Blood sugar 107. Postoperative chest x-ray reveals postop findings with left lower lobe atelectasis and associated effusion. Post median sternotomy change. 04/02: Patient is sitting up in his recliner today is feeling well, still have chest tubes i place, he is using spirometer, we will continue to increase activity, we will continue to follow up with patient very closely, pain is well controlled with [place], and he is tolerating full liquids, no new issues, we will switch from insulin drip to SSI. 04/03: Patient is seen today in the intensive care unit. He states he is feeling tired and not sleeping well. He states he has terrible gas and not able to burp but passed a small amount of gas this morning a little diarrhea. Patient has a vasovagal episode while on the commode chair this morning but has been otherwise hemodynamically stable. Patient has been afebrile, heart rate in the 60s and 70s, blood pressure 109/73, pulse ox 90% on room air. case monitor is sinus rhythm. Patient is reaching 1000 on incentive spirometry. He remains with Yates catheter, Ashley 3, Cordis in place. Repeat blood work reveals WBC 11.4, hemoglobin 11.1, platelet count 140. Sodium 136 otherwise electrolytes and renal function are normal with a creatinine of 0.98. Blood glucose running between 112 and 129. Liver function tests are normal. Repeat chest x-ray reveals left lower lobe atelectasis and associated effusion, difficult to exclude pneumonia, interstitial edema. REVIEW OF SYSTEMS Constitutional: No fever, no chills, no night sweats. No weight change. No weakness, reports fatigue no lethargy. No daytime sleepiness. EENT: No headache. No blurred vision or double vision, no loss of vision. No loss of Hearing, no ringing in the ears, no dizziness. No nasal drainage or congestion. No epistaxis. No sore throat. Lungs: No shortness of breath, cough, no sputum production. No wheezing. Cardiovascular: No chest pain, no lower extremity edema. No palpitations. No paroxysmal nocturnal dyspnea. No orthopnea. No lightheadedness or dizziness. No syncopal episodes. Abdominal: No abdominal pain. No nausea, vomiting. Reports one episode of diarrhea. No constipation. No bloody or tarry stools. No loss of appetite. Genitourinary: No dysuria, increased frequency, urgency. No urinary retention. Yates catheter in place. Musculoskeletal: No myalgias. No muscle weakness, no gait dysfunction, no frequent falls. No back pain. No neck pain. Integumentary: No wounds, no lesions. No rash or pruritus. No unusual bruising. No change in hair or nails. Neurologic: No aphasia. No facial droop. No change in mentation. No head injury. No headache. No paralysis. No paresthesia. Psychiatric: No depression. No anxiety. No mood swings. Endocrine: No abnormal blood sugars. No weight change. No excessive sweating or thirst. No cold intolerance. PHYSICAL EXAMINATION Gen: This is a 71-year-old male. He is resting in the ICU bed appears to be comfortable. No acute distress noted. HEENT: Head is atraumatic, normocephalic. Pupils equal, round. Sclerae is anicteric. NECK: Supple. No JVD. No lymphadenopathy. No thyromegaly. Right-sided Cordis in place. LUNGS: Clear to auscultation. No wheezes or rhonchi. No intercostal retractions. Chest tube 3 with serosanguineous drainage. HEART: Regular rate and rhythm. No murmur. Dressing over sternal wound is dry and intact, no drainage noted. ABDOMEN: Soft. Bowel sounds are present. No masses. No tenderness. Yates catheter draining christine urine. EXTREMITIES: No pedal edema. No calf tenderness. Dorsalis pedis +2 bilaterally. Braeden wraps to the bilateral lower extremities, SCDs in place bilaterally NEUROLOGICAL: Patient is awake alert and oriented 3, able to move all 4 extremities with no neuro deficits.. ASSESSMENT AND PLAN 1. Coronary artery disease status post CABG, left internal mammary artery to the diagonal artery and a [id number] fashion, left anterior descending artery in an end to side fashion, postop day #2. we will continue with ASA 325 mg po daily, atorvastatin 80 mg at bedtime, Plavix 75 mg po daily, we will continue with current treatment plan, we will continue with Metoprolol 50 mg po bid 2. Acute hypoxic respiratory failure post extubation, expected with surgery. we will continue with aggessive pulmonary toiletting 3. Hypertension. Continue patient on Metoprolol 50 mg po bid 4. Hyperlipidemia. Continue atorvastatin 80 mg at bedtime. 5. Gastroesophageal reflux disease. Continue Protonix 40 mg daily. 6. Remote history of tobacco use. 7. DVT prophylaxis. Lovenox 40 mg subcu. 8. increase Activity. 9. Discontinue Insulin drip and continue him on SSI. DISCHARGE PLAN Home with [facility] Impression and plan of care have been directed as dictated by the signing physician. Dayana Hawley nurse practitioner acting as scribe for signing physician. Objective - Vital Signs Vital signs: Vital Signs Temp 98.3 F 04/03/22 04:00 Pulse 96 04/03/22 07:00 Resp 17 04/03/22 07:00 BP 121/73 04/02/22 06:00 Pulse Ox 93 L 04/03/22 07:57 FiO2 50 04/01/22 16:08 Intake & Output 04/02/22 04/03/22 04/03/22 18:59 06:59 18:59 Intake Total 914.331 588 Output Total 1275 1000 Balance -360.669 -412 Weight 102 kg 99.2 kg Intake: IV 362 588 Albumin Human 5% 250 ml 250 In Empty Bag 1 bag @ 250 mls/hr IVPB Q1HR PRN Rx#: [id number] CO/CI 20 Pressure Bags 72 78 Sodium Chloride 0.9% 1, 220 260 000 ml @ 50 mls/hr IV . Q20H [facility] Rx#:[id number] ceFAZolin 2 gm In Sodium 50 Chloride 0.9% 50 ml @ 100 mls/hr IVPB Q8HR [facility] Rx# :[id number] Intake, IV Titration 2.331 Amount Insulin Regular 100 unit 2.331 In Sodium Chloride 0.9% 100 ml @ Per Protocol IV .Q0M [facility] Rx#:[id number] Oral 550 Output: Chest Tube Drainage 210 390 Chest Tube Left Pleural/ 90 330 Mediastinal Chest Tube Mediastinal 120 60 Urine 1065 610 Other: Voiding Method Indwelling Catheter Indwelling Catheter ABP, PAP, CO, CI - Last Documented Arterial Blood Pressure 138/58 Pulmonary Artery Pressure 20/6 Cardiac Output 5.2 Cardiac Index 2.5 - Labs CBC & Chem 7: 04/03/22 05:25 04/03/22 05:25 Labs: Abnormal Lab Results - Last 24 Hours (Table) 04/02/22 04/02/22 04/02/22 Range/Units 09:02 11:27 16:35 WBC (3.8-10.6) k/uL RBC (4.30-5.90) m/uL Hgb (13.0-17.5) gm/dL Hct (39.0-53.0) % Plt Count (150-450) k/uL Neutrophils # (1.3-7.7) k/uL Sodium (137-145) mmol/L Glucose (74-99) mg/dL POC Glucose (mg/dL) 112 H 127 H 122 H (70-110) mg/dL Total Protein (6.3-8.2) g/dL 04/02/22 04/03/22 04/03/22 Range/Units 21:17 05:17 05:25 WBC 11.4 H (3.8-10.6) k/uL RBC 3.74 L (4.30-5.90) m/uL Hgb 11.1 L (13.0-17.5) gm/dL Hct 33.0 L (39.0-53.0) % Plt Count 140 L (150-450) k/uL Neutrophils # 8.9 H (1.3-7.7) k/uL Sodium (137-145) mmol/L Glucose (74-99) mg/dL POC Glucose (mg/dL) 112 H 128 H (70-110) mg/dL Total Protein (6.3-8.2) g/dL 04/03/22 04/03/22 Range/Units 05:25 06:44 WBC (3.8-10.6) k/uL RBC (4.30-5.90) m/uL Hgb (13.0-17.5) gm/dL Hct (39.0-53.0) % Plt Count (150-450) k/uL Neutrophils # (1.3-7.7) k/uL Sodium 136 L (137-145) mmol/L Glucose 132 H (74-99) mg/dL POC Glucose (mg/dL) 129 H (70-110) mg/dL Total Protein 5.5 L (6.3-8.2) g/dL
[2022-04-03 11:22] LABS: Glucose,Whole Blood 141 mg/dL (70-110)
--- NOTE | 2022-04-03 11:41 | P.PN ---
Subjective Progress Note Date: 04/03/22 Principal diagnosis: S/P CABG. Pulmonary/critical care consultation, 04/01/2022. 71-year-old male, that were asked to see in the intensive care unit, after having a two-vessel bypass grafting. He has a history of hypertension, hyperlipidemia, and gastroesophageal reflux disease. The patient apparently was having symptoms of shortness of breath on exertion, and dizziness, and echocardiogram showed evidence of inferior and inferior septal ischemia with normal systolic function at baseline. Cardiac catheterization was done by Dr. 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 The patient was sent to be evaluated by cardiothoracic surgery for bypass grafting. He is currently on the ventilator, with settings of volume assist control, rate of 14, tidal volume 500, FiO2 50%, and PEEP of 10. Blood gases on 100% show pO2 of 277, pCO2 39, pH is 7.38. The patient's cardiac output is 6.9, with an index of 3.3. The patient's currently on Cleveprex at 3 mg an hour, nitroglycerin at 5 mcg/m, and propofol at 25 mcg/kg/m. In addition, the patient is getting lactated Ringer's at 50 mL an hour. White count 6.7, hemoglobin 8.9, hematocrit 26.6, platelet count 201,000. Sodium 138, potassium 3.6, chlorides 108, CO2 21, BUN 14, creatinine 0.68. Chest x-ray shows postsurgical changes, as well as some bibasilar atelectasis. Progress note dated 04/02/2022. 71-year-old male seen in room 264. He was seen in consultation yesterday. The patient underwent a two-vessel bypass grafting. Today is postop day #1. He has a history of hypertension, hyperlipidemia, and GERD. Currently he is on 2 L of oxygen. He is getting saline at 20 mL an hour. The insulin drip is on hold. Other than for some pain, at the surgical site, the patient's doing reasonably well. White count 9.9, hemoglobin 11.5, hematocrit 33.6, and platelet count 241,000. Sodium 134, potassium 4.4, chlorides 103, CO2 23, BUN 11, creatinine 0.7. The patient's chest x-ray showing evidence of left lower lobe atelectasis, and a small effusion. Progress note dated 04/03/2022 71-year-old male seen again in room 264. The patient is postop day #2, status post two-vessel bypass grafting. He is currently on 2 L of oxygen. He is getting saline at 20 mL an hour. He apparently had an episode earlier this morning, which may have been a vasovagal episode. He apparently lost consciousness for about 6 seconds. He apparently was getting out of bed to have a bowel movement. He's feeling back to normal now. White count 11.4, hemoglobin 11.1, hematocrit 33, platelet count 140,000. Sodium 136, with a normal potassium, chloride, CO2, anion gap, BUN, and creatinine. Chest x-ray shows some atelectasis and a small effusion at the left lung base. Objective - Vital Signs Vital signs: Vital Signs Temp 98.3 F 04/03/22 08:00 Pulse 81 04/03/22 11:00 Resp 22 04/03/22 11:00 BP 99/74 04/03/22 11:00 Pulse Ox 92 L 04/03/22 11:00 FiO2 50 04/01/22 16:08 Intake & Output 04/02/22 04/03/22 04/03/22 18:59 06:59 18:59 Intake Total 914.331 588 596 Output Total 1275 1000 345 Balance -360.669 412 251 Weight 102 kg 99.2 kg Intake: IV 362 588 46 Albumin Human 5% 250 ml 250 In Empty Bag 1 bag @ 250 mls/hr IVPB Q1HR PRN Rx#: [id number] CO/CI 20 Pressure Bags 72 78 6 Sodium Chloride 0.9% 1, 220 260 40 000 ml @ 50 mls/hr IV . Q20H JANAK Rx#:[id number] ceFAZolin 2 gm In Sodium 50 Chloride 0.9% 50 ml @ 100 mls/hr IVPB Q8HR JANAK Rx# :[id number] Intake, IV Titration 2.331 Amount Insulin Regular 100 unit 2.331 In Sodium Chloride 0.9% 100 ml @ Per Protocol IV .Q0M JANAK Rx#:[id number] Oral 550 550 Tube Feeding 0 Blood Product 0 Output: Chest Tube Drainage 210 390 60 Chest Tube Left Pleural/ 90 330 30 Mediastinal Chest Tube Mediastinal 120 60 30 Urine 1065 610 285 Stool 0 Other: Voiding Method Indwelling Catheter Indwelling Catheter Indwelling Catheter ABP, PAP, CO, CI - Last Documented Arterial Blood Pressure 131/51 Pulmonary Artery Pressure 20/6 Cardiac Output 5.2 Cardiac Index 2.5 - Exam No acute distress, oriented 3. Currently on 2 L of oxygen. HEENT examination is grossly unremarkable. Neck supple. Full range of motion. No adenopathy thyromegaly or neck vein distention. Cardiovascular examination reveals regular rhythm rate. S1-S2 normal. No S3 or S4. No discernible murmur noted. Heart rate 75 bpm. Lungs reveal mostly clear breath sounds. Scattered rhonchi are noted. No wheezes or crackles. Breath sounds equal bilaterally. 2 L saturation is 96 %. Abdomen soft bowel sounds are heard. No masses or tenderness. Extremities are intact. No cyanosis clubbing or edema. Skin is without rash or lesion. Neurologic examination is brief but nonfocal. - Labs CBC & Chem 7: 04/03/22 05:25 04/03/22 05:25 Labs: Abnormal Lab Results - Last 24 Hours (Table) 04/02/22 04/02/22 04/03/22 Range/Units 16:35 21:17 05:17 WBC (3.8-10.6) k/uL RBC (4.30-5.90) m/uL Hgb (13.0-17.5) gm/dL Hct (39.0-53.0) % Plt Count (150-450) k/uL Neutrophils # (1.3-7.7) k/uL Sodium (137-145) mmol/L Glucose (74-99) mg/dL POC Glucose (mg/dL) 122 H 112 H 128 H (70-110) mg/dL Total Protein (6.3-8.2) g/dL 04/03/22 04/03/22 04/03/22 Range/Units 05:25 05:25 06:44 WBC 11.4 H (3.8-10.6) k/uL RBC 3.74 L (4.30-5.90) m/uL Hgb 11.1 L (13.0-17.5) gm/dL Hct 33.0 L (39.0-53.0) % Plt Count 140 L (150-450) k/uL Neutrophils # 8.9 H (1.3-7.7) k/uL Sodium 136 L (137-145) mmol/L Glucose 132 H (74-99) mg/dL POC Glucose (mg/dL) 129 H (70-110) mg/dL Total Protein 5.5 L (6.3-8.2) g/dL 04/03/22 Range/Units 11:20 WBC (3.8-10.6) k/uL RBC (4.30-5.90) m/uL Hgb (13.0-17.5) gm/dL Hct (39.0-53.0) % Plt Count (150-450) k/uL Neutrophils # (1.3-7.7) k/uL Sodium (137-145) mmol/L Glucose (74-99) mg/dL POC Glucose (mg/dL) 141 H (70-110) mg/dL Total Protein (6.3-8.2) g/dL Assessment and Plan Assessment: Postop day #2, off pump two-vessel bypass grafting, LEY to LAD to diagonal, exclusion of left atrial appendage, and intraoperative transesophageal echocardiogram. Routine postoperative ventilator management, S/P successful extubation on 04/01/2022. History of hypertension. History of hyperlipidemia. History of gastroesophageal reflux disease. Plan: Plan dated 04/01/2022. The patient is seen in the intensive care unit. FiO2 was dropped from 100% to 50%, after the pO2 was found to be 277. Cardiac up at 6.9. Index is 3.3. The patient is on Cleveprex at 3 mg an hour, nitroglycerin at 5 mcg/m, and propofol at 25 mcg/kg/m. The patient's also receiving lactated Ringer's at 50 mL the patient will be extubated within the 6 hour window. Follow, make recommendations along the way. Post extubation, the patient will focus on deep breathing, coughing, and clearing of secretions, and hourly use of the incentive spirometer. Plan dated 04/02/2022. The patient is encouraged to deep breathe, cough, and clear secretions. We also encouraged the patient to use the incentive spirometer, every hour while awake. Labs, x-rays, medications are reviewed. Today's postop day #1. The patient appears to be doing reasonably well. He was extubated within the 6 hour window. We will continue to follow make recommendations. Prognosis is guarded. Plan dated 04/03/2022. The patient appears to be doing relatively well. He did have an episode earlier this morning which may have been a vasovagal episode. He was getting out of bed to have a bowel movement. She apparently lost consciousness for about 6 seconds. Currently, he's on 2 L. Labs, x-rays, and medications are reviewed. We told him to really work on his incentive spirometer, as he has some collapse and atelectasis at the left lung base. We will continue to follow make recommendations where appropriate. Time with Patient: Less than 30
--- NOTE | 2022-04-03 12:28 | P.PN ---
Subjective Progress Note Date: 04/03/22 Principal diagnosis: CAD and status post CABG The patient is a 71-year-old gentleman who is known to our service and follows with Dr. Montejo regularly who underwent recently as an outpatient workup for angina. He underwent a heart catheterization and that revealed occluded LAD by the bifurcation of the diagonal branch which has a severe disease. He also underwent an echocardiogram which revealed preserved left ventricular systolic function with no significant valvular abnormalities. The patient was referred for open heart and he underwent yesterday CABG. He underwent LEY to a diagonal and LAD. The procedure/surgery was uneventful and the patient was extubated yesterday. He was seen this morning. Overall he is stable from the cardiac vascular standpoint of view and currently is not on any vasopressors or any inotropic. He is entertaining normal sinus mechanism. The chest x-ray this morning showed small bilateral pleural effusion. His hemoglobin is is stable. His GFR is above 60. Urine output is reasonable. In terms off medication he is currently on dual antiplatelet therapy along with beta rafa as well as intermediate intensity statin. He was sitting in the chart does not look in any pain or any distress when he was seen this morning. April 032021 The patient was seen this morning. He did have an episode of presyncope earlier today. His pressure has been soft but his systolic pressure above 90 mmHg and his mean around 65 mmHg. He has been maintaining normal sinus mechanism. Urine output has been stable. He continues to be on dual antiplatelet therapy along with beta rafa along with high intensity statin. Objective - Vital Signs Vital signs: Vital Signs Temp 97.9 F 04/03/22 12:06 Pulse 87 04/03/22 12:06 Resp 19 04/03/22 12:06 BP 99/74 04/03/22 11:00 Pulse Ox 93 L 04/03/22 12:06 FiO2 50 04/01/22 16:08 Intake & Output 04/02/22 04/03/22 04/03/22 18:59 06:59 18:59 Intake Total 914.331 588 606 Output Total 1275 1000 405 Balance -360.669 -412 201 Weight 102 kg 99.2 kg Intake: IV 362 588 56 Albumin Human 5% 250 ml 250 In Empty Bag 1 bag @ 250 mls/hr IVPB Q1HR PRN Rx#: [id number] CO/CI 20 Invasive Line 5 10 Pressure Bags 72 78 6 Sodium Chloride 0.9% 1, 220 260 40 000 ml @ 50 mls/hr IV . Q20H JANAK Rx#:[id number] ceFAZolin 2 gm In Sodium 50 Chloride 0.9% 50 ml @ 100 mls/hr IVPB Q8HR JANAK Rx# :[id number] Intake, IV Titration 2.331 Amount Insulin Regular 100 unit 2.331 In Sodium Chloride 0.9% 100 ml @ Per Protocol IV .Q0M JANAK Rx#:[id number] Oral 550 550 Tube Feeding 0 Blood Product 0 Output: Chest Tube Drainage 210 390 70 Chest Tube Left Pleural/ 90 330 40 Mediastinal Chest Tube Mediastinal 120 60 30 Urine 1065 610 335 Stool 0 Other: Voiding Method Indwelling Catheter Indwelling Catheter Urinal ABP, PAP, CO, CI - Last Documented Arterial Blood Pressure 131/51 Pulmonary Artery Pressure 20/6 Cardiac Output 5.2 Cardiac Index 2.5 - Constitutional General appearance: Present: no acute distress - Respiratory Respiratory: bilateral: diminished - Cardiovascular Rhythm: regular - Labs CBC & Chem 7: 04/03/22 05:25 04/03/22 05:25 Labs: Abnormal Lab Results - Last 24 Hours (Table) 04/02/22 04/02/22 04/03/22 Range/Units 16:35 21:17 05:17 WBC (3.8-10.6) k/uL RBC (4.30-5.90) m/uL Hgb (13.0-17.5) gm/dL Hct (39.0-53.0) % Plt Count (150-450) k/uL Neutrophils # (1.3-7.7) k/uL Sodium (137-145) mmol/L Glucose (74-99) mg/dL POC Glucose (mg/dL) 122 H 112 H 128 H (70-110) mg/dL Total Protein (6.3-8.2) g/dL 04/03/22 04/03/22 04/03/22 Range/Units 05:25 05:25 06:44 WBC 11.4 H (3.8-10.6) k/uL RBC 3.74 L (4.30-5.90) m/uL Hgb 11.1 L (13.0-17.5) gm/dL Hct 33.0 L (39.0-53.0) % Plt Count 140 L (150-450) k/uL Neutrophils # 8.9 H (1.3-7.7) k/uL Sodium 136 L (137-145) mmol/L Glucose 132 H (74-99) mg/dL POC Glucose (mg/dL) 129 H (70-110) mg/dL Total Protein 5.5 L (6.3-8.2) g/dL 04/03/22 Range/Units 11:20 WBC (3.8-10.6) k/uL RBC (4.30-5.90) m/uL Hgb (13.0-17.5) gm/dL Hct (39.0-53.0) % Plt Count (150-450) k/uL Neutrophils # (1.3-7.7) k/uL Sodium (137-145) mmol/L Glucose (74-99) mg/dL POC Glucose (mg/dL) 141 H (70-110) mg/dL Total Protein (6.3-8.2) g/dL Assessment and Plan Assessment: Assessment Severe 2 vessel CAD and status post CABG as described above Hypertension Dyslipidemia An episode of presyncope Plan Continue the current medical regimen Increase the dose of Lipitor into high intensity Continue dual antiplatelet therapy Continue beta rafa Continue monitor the kidney function and electrolytes Follow-up with the patient
--- NOTE | 2022-04-03 12:46 | P.PN ---
Subjective Progress Note Date: 04/03/22 Principal diagnosis: Coronary artery disease with total occlusion of the left anterior descending coronary artery, and overall preserved left ventricular function. Past medical history significant for hypertension, hyperlipidemia, osteoarthritis hearing disorder and GERD. POD #2 off-pump total arterial coronary artery bypass grafting using left internal mammary artery to the diagonal coronary artery and a [id number] fashion, then to the left anterior descending coronary artery in an end side fashion. Exclusion of left atrial appendage using a 40 mm Atriclip, intraopera tive graft flow measurements using the [place] sytem and intraoperative transesophageal echocardiogram. Postoperative acute blood loss anemia, expected secondary to hemodilution. The patient was seen and examined this morning 04/03/2022 at his bedside in the intensive care unit. The patient's nurse reports while he was up to the commode this morning his blood pressure dropped and had a vasovagal response. Currently he is lying in bed, is awake, alert, oriented 3 and is in no acute distress. He remains hemodynamically stable and currently on no inotropic or pressor support. Oxygen saturations are 98% on 3 L nasal cannula and he is achieving 1250 mL on his incentive spirometry with encouragement. Bedside telemetry showing normal sinus rhythm heart rate 93 BPM. Right IJ cordis remains in place with continuous CVP monitoring, current CVP pressure is 12 mmHg. Mediastinal and left pleural chest tubes remain in place to low continuous wall suction -20 cm H2O. No air leak is present. Mediastinal Allen drains draining thin serosanguineous drainage with 40 mL output in the last 8 hours and 120 L output last 24 hours. Left pleural Allen drain drained 310 mL output in the last 8 hours and 451 L output in the last 24 hours. Denies any complaints or shortness of breath at this time, although reports he feels tired. Yates cath remains in place for accurate I's and O's, urine output was 300 mL in the last 8 hours. Laboratory results this morning show a WBC count of 11.4, hemoglobin 11.1, hematocrit 33.0, platelets 140, sodium 136, potassium 4.3, BUN 19, creatinine 0.98, glucose 132, calcium 8.6, ionized calcium 5.0, AST 22 and ALT 16. X-rays reports this morning shows a left lower lobe atelectasis and a small associated pleural effusion. Objective - Vital Signs Vital signs: Vital Signs Temp 98.3 F 04/03/22 04:00 Pulse 96 04/03/22 07:00 Resp 17 04/03/22 07:00 BP 121/73 04/02/22 06:00 Pulse Ox 94 L 04/03/22 07:00 FiO2 50 04/01/22 16:08 Intake & Output 04/02/22 04/03/22 04/03/22 18:59 06:59 18:59 Intake Total 914.331 588 Output Total 1275 1000 Balance -360.669 -412 Weight 102 kg 99.2 kg Intake: IV 362 588 Albumin Human 5% 250 ml 250 In Empty Bag 1 bag @ 250 mls/hr IVPB Q1HR PRN Rx#: [id number] CO/CI 20 Pressure Bags 72 78 Sodium Chloride 0.9% 1, 220 260 000 ml @ 50 mls/hr IV . Q20H JANAK Rx#:[id number] ceFAZolin 2 gm In Sodium 50 Chloride 0.9% 50 ml @ 100 mls/hr IVPB Q8HR JANAK Rx# :[id number] Intake, IV Titration 2.331 Amount Insulin Regular 100 unit 2.331 In Sodium Chloride 0.9% 100 ml @ Per Protocol IV .Q0M JANAK Rx#:[id number] Oral 550 Output: Chest Tube Drainage 210 390 Chest Tube Left Pleural/ 90 330 Mediastinal Chest Tube Mediastinal 120 60 Urine 1065 610 Other: Voiding Method Indwelling Catheter Indwelling Catheter ABP, PAP, CO, CI - Last Documented Arterial Blood Pressure 138/58 Pulmonary Artery Pressure 20/6 Cardiac Output 5.2 Cardiac Index 2.5 - Exam CONSTITUTIONAL: Sitting up in bed in the intensive care unit, appears comfortable, cooperative, no apparent acute distress. HEENT: Neck is supple, no JVD, no lymphadenopathy. Right IJ Cordis in place and functioning. RESPIRATORY: Lungs sounds essentially clear throughout, diminished to his bilateral bases. Respirations are symmetrical and nonlabored. Currently on 3 L nasal cannula with oxygen saturations 98%. Able to achieve 1250 mL on his incentive spirometry. Strong cough. CARDIOVASCULAR: Regular rhythm and rate. S1 and S2 present, negative for S3, gallop or murmur. Sternum is stable. Palpable peripheral pulses bilaterally, no edema present. No calf pain or tenderness noted. Heart hugger in place with patient demonstrating appropriate use. Knee-high [place] hose and sequential c ompression devices in place to his bilateral lower extremities. Bedside telemetry showing normal sinus rhythm. GASTROINTESTINAL: Abdomen soft, nontender, nondistended. Active bowel sounds present 4 quadrants. Tolerating diet. Passing flatus. No guarding or rigidity. Loose stool this morning 04/03/2022. GENITOURINARY: Yates present draining clear, yellow urine. Urine output 300 ml in the last 8 hours. INTEGUMENTARY: Skin is warm and dry with no evidence of clubbing or cyanosis. Midline sternal incision clean dry and well approximated, covered with dry intact dressing. NEUROLOGIC: Cranial nerves II through XII intact. No focal deficits. MUSKULOSKELETAL: Able to move all extremities, strength equal bilaterally. PSYCHIATRIC: Alert and oriented to person place and time, appropriate affect, intact judgment and insight. INVASIVE LINES AND TUBES: Mediastinal/left pleural Allen chest tubes present and connected to low continuous wall suction, no air leaks present. Mediastinal tubes with 40 mL of thin serosanguineous drainage overnight, 120 mL output in the last 24 hours. Left pleural chest tube with 310 mL of thin serosanguineous drainage overnight, 450 mL output in the last 24 hours. Right internal jugular Cordis, right radial arterial line present. Continuous CVP monitoring with current CVP 12 mmHg. - Allied health notes Allied health notes reviewed: nursing - Labs CBC & Chem 7: 04/03/22 05:25 04/03/22 05:25 Labs: Abnormal Lab Results - Last 24 Hours (Table) 04/02/22 04/02/22 04/02/22 Range/Units 09:02 11:27 16:35 WBC (3.8-10.6) k/uL RBC (4.30-5.90) m/uL Hgb (13.0-17.5) gm/dL Hct (39.0-53.0) % Plt Count (150-450) k/uL Neutrophils # (1.3-7.7) k/uL Sodium (137-145) mmol/L Glucose (74-99) mg/dL POC Glucose (mg/dL) 112 H 127 H 122 H (70-110) mg/dL Total Protein (6.3-8.2) g/dL 04/02/22 04/03/22 04/03/22 Range/Units 21:17 05:17 05:25 WBC 11.4 H (3.8-10.6) k/uL RBC 3.74 L (4.30-5.90) m/uL Hgb 11.1 L (13.0-17.5) gm/dL Hct 33.0 L (39.0-53.0) % Plt Count 140 L (150-450) k/uL Neutrophils # 8.9 H (1.3-7.7) k/uL Sodium (137-145) mmol/L Glucose (74-99) mg/dL POC Glucose (mg/dL) 112 H 128 H (70-110) mg/dL Total Protein (6.3-8.2) g/dL 04/03/22 04/03/22 Range/Units 05:25 06:44 WBC (3.8-10.6) k/uL RBC (4.30-5.90) m/uL Hgb (13.0-17.5) gm/dL Hct (39.0-53.0) % Plt Count (150-450) k/uL Neutrophils # (1.3-7.7) k/uL Sodium 136 L (137-145) mmol/L Glucose 132 H (74-99) mg/dL POC Glucose (mg/dL) 129 H (70-110) mg/dL Total Protein 5.5 L (6.3-8.2) g/dL - Imaging and Cardiology Chest x-ray: report reviewed, image reviewed Assessment and Plan Assessment: 1. Coronary artery disease with total occlusion of the left anterior descending coronary artery, status post off-pump total arterial coronary artery bypass grafting 2 vessels 2. Hypertension 3. Hyperlipidemia 4. Osteoarthritis 5. Gastroesophageal reflux disease 6. Hard of hearing 7. Postoperative acute blood loss anemia, expected secondary to hemodilution 8. Presyncopal event, likely due to vasovagal Plan: 1. Continue to maximize medical therapy with full strength aspirin, statin, Plavix and beta rafa. We will increase metoprolol tartrate to 50 mg by mouth twice a day. 2. We will remove his mediastinal chest tubes. Keep left pleural Allen drain in place to low continuous wall suction -20 cm H2O. 3. Bronchodilator management per pulmonary/critical care service. 4. Increase activity as tolerated, ambulate as tolerated. PT/OT/cardiac rehab following. 5. Will monitor daily labs and chest x-ray. Electrolyte replacement per protocol. 6. Pain control with current medication regimen. 7. Insulin management per internal medicine. Patient is not diabetic, preoperative hemaglobin A1c 5.6%. 8. We will discontinue right IJ cordis, right radial arterial line and Yates catheter. 9. Continue to monitor strict in accurate I's and O's. Daily weights. Once Yates catheter is removed bladder scan every 6 hours and when necessary postvoid residual, if greater than 350 mL straight cath. 10. More recommendations to follow based on patient's clinical course. Time with Patient: Greater than 30
[2022-04-03] MEDS: TAMSULOSIN 0.4 MG CAP.ER.24H PO SCH ×2 (15:31→17:15)
[2022-04-03 17:21] LABS: Glucose,Whole Blood 117 mg/dL (70-110)
[2022-04-03] MEDS: ATORVASTATIN 80 MG TAB PO SCH (21:48)
[2022-04-03] MEDS: SENNOSIDES-DOCUSATE SODIUM 1 EACH TAB PO SCH (21:48)
[2022-04-03 21:54] LABS: Glucose,Whole Blood 109 mg/dL (70-110)
[2022-04-04] MEDS: SODIUM CHLORIDE 0.9% 1,000 ML IV SCH (00:45)
[2022-04-04] MEDS: KETOROLAC 15 MG/ML 1 ML VIAL IVP SCH ×4 (01:02→18:17)
[2022-04-04 04:28] LABS: Basophils % (A) 0 %; Eosinophils # (A) 0.3 k/uL (0-0.7); Eosinophils % (A) 4 %; HCT 32.3 % (39.0-53.0); HGB 10.5 gm/dL (13.0-17.5); Lymphocytes # (A) 1.8 k/uL (1.0-4.8); Lymphocytes % (A) 20 %; MCH 29.2 pg (25.0-35.0); MCHC 32.6 g/dL (31.0-37.0); MCV 89.4 fL (80.0-100.0); Mean Platelet Volume 9.8; Monocytes # (A) 0.5 k/uL (0-1.0); Monocytes % (A) 6 %; Neutrophils # (A) 6.2 k/uL (1.3-7.7); Neutrophils % (A) 69 %; Platelet Count 135 k/uL (150-450); RBC 3.61 m/uL (4.30-5.90); RDW 12.9 % (11.5-15.5); WBC 9.1 k/uL (3.8-10.6)
[2022-04-04 04:40] LABS: Albumin 3.1 g/dL (3.5-5.0); Calcium 8.5 mg/dL (8.4-10.2); Potassium 4.3 mmol/L (3.5-5.1); Total Bilirubin 0.9 mg/dL (0.2-1.3); Total Protein 5.1 g/dL (6.3-8.2)
[2022-04-04] MEDS: HYDROcodone/APAP 5-325MG 1 EACH TAB PO PRN ×2 (05:19→14:51)
[2022-04-04] MEDS: PANTOPRAZOLE 40 MG TABLET PO SCH (07:12)
[2022-04-04 07:17] LABS: Glucose,Whole Blood 123 mg/dL (70-110)
[2022-04-04] MEDS: INSULIN ASPART (NovoLOG) 100 UNIT/ML VIAL SQ SCH ×4 (07:27→20:51)
--- NOTE | 2022-04-04 07:36 | P.PN ---
Subjective Progress Note Date: 04/04/22 Principal diagnosis: Coronary artery disease with total occlusion of the left anterior descending coronary artery, overall preserved left ventricular function. Previous medical history of hypertension, hyperlipidemia, previous tobacco dependence, positive Covid infection December 2021, vaccinated and boosted, osteoarthritis, hearing disorder, and GERD POD #3 off-pump total arterial coronary artery bypass grafting using left internal mammary artery to the diagonal coronary artery and a [id number] fashion, then to the left anterior descending coronary artery in an end-to-side fashion. Exclusion of left atrial appendage using a 40 mm Atriclip, intraoperative graft flow measurements using the Medistim sytem and intraoperative transesophageal echocardiogram. Postoperative acute blood loss anemia, expected secondary to hemodilution Presyncopal event, likely vasovagal The patient was seen and examined this morning sitting up in a recliner in the intensive care unit in no acute distress about to eat breakfast. States pain is well controlled on current medication regimen, denies shortness of breath. States he has been ambulatory without difficulty. All unnecessary lines and tubes have been discontinued, left pleural chest tube remains. Currently on room air with oxygen saturation in the mid 90s, able to achieve 1250 mL on his incentive spirometry. No other new concerns at this time. Objective - Vital Signs Vital signs: Vital Signs Temp 98.3 F 04/04/22 04:00 Pulse 82 04/04/22 06:00 Resp 18 04/04/22 06:00 BP 112/73 04/04/22 06:00 Pulse Ox 91 L 04/04/22 06:00 FiO2 50 04/01/22 16:08 Intake & Output 04/03/22 04/04/22 04/04/22 18:59 06:59 18:59 Intake Total 1274 840 Output Total 586 835 Balance 688 5 Weight 99.1 kg Intake: IV 66 Invasive Line 5 20 Pressure Bags 6 Sodium Chloride 0.9% 1, 40 000 ml @ 50 mls/hr IV . Q20H [facility] Rx#:[id number] Oral 1208 840 Tube Feeding 0 Blood Product 0 Output: Chest Tube Drainage 126 335 Chest Tube Left Pleural/ 96 335 Mediastinal Chest Tube Mediastinal 30 Urine 460 500 Stool 0 Other: Voiding Method Urinal Urinal # Bowel Movements 1 ABP, PAP, CO, CI - Last Documented Arterial Blood Pressure 131/51 Pulmonary Artery Pressure 20/6 Cardiac Output 5.2 Cardiac Index 2.5 - Exam CONSTITUTIONAL: Appears comfortable, cooperative, no acute distress RESPIRATORY: Lungs sounds diminished in the bases bilaterally. Respirations even, nonlabored. Currently on room air with oxygen saturation 94%. Able to achieve 1250 mL on incentive spirometry. Strong nonproductive cough. CARDIOVASCULAR: S1, S2 present. Regular rate and rhythm, sinus rhythm on telemetry. Sternum stable. Palpable peripheral pulses bilaterally. No edema present. No calf pain or tenderness noted. Heart hugger in place with patient demonstrating appropriate use. Antiembolism stockings, SCDs present. GASTROINTESTINAL: Abdomen soft, nontender, nondistended. Active bowel sounds present 4 quadrants. Tolerating diet. Positive bowel movement 04/03. GENITOURINARY: Continues to void INTEGUMENTARY: Skin is warm and dry with evidence of good perfusion. Anterior chest incision well approximated and covered with dry intact dressing NEUROLOGIC: Cranial nerves II through XII intact MUSKULOSKELETAL: Able to move all extremities, strength equal bilaterally, gait normal PSYCHIATRIC: Alert and oriented to person place and time, appropriate affect, intact judgment and insight INVASIVE LINES AND TUBES: Left pleural chest tube present and connected to wall suction, no air leak present, 10 mL serosanguineous drainage overnight, 450 mL in the last 24 hours - Allied health notes Allied health notes reviewed: nursing - Labs CBC & Chem 7: 04/04/22 03:24 04/04/22 03:24 Labs: Abnormal Lab Results - Last 24 Hours (Table) 04/03/22 04/03/22 04/04/22 Range/Units 11:20 17:19 03:24 RBC 3.61 L (4.30-5.90) m/uL Hgb 10.5 L (13.0-17.5) gm/dL Hct 32.3 L (39.0-53.0) % Plt Count 135 L (150-450) k/uL Sodium (137-145) mmol/L BUN (9-20) mg/dL Glucose (74-99) mg/dL POC Glucose (mg/dL) 141 H 117 H (70-110) mg/dL Total Protein (6.3-8.2) g/dL Albumin (3.5-5.0) g/dL 04/04/22 04/04/22 Range/Units 03:24 07:14 RBC (4.30-5.90) m/uL Hgb (13.0-17.5) gm/dL Hct (39.0-53.0) % Plt Count (150-450) k/uL Sodium 135 L (137-145) mmol/L BUN 21 H (9-20) mg/dL Glucose 101 H (74-99) mg/dL POC Glucose (mg/dL) 123 H (70-110) mg/dL Total Protein 5.1 L (6.3-8.2) g/dL Albumin 3.1 L (3.5-5.0) g/dL - Imaging and Cardiology Chest x-ray: image reviewed Assessment and Plan Assessment: 1. Coronary artery disease with total occlusion of the left anterior descending coronary artery, status post 2 vessel off-pump CABG 2. Overall preserved left ventricular function 3. History of hypertension 4. History of hyperlipidemia, treated, cholesterol 126, LDL 70 5. Previous tobacco dependence, preoperative FEV1 81% of predicted 6. Positive Covid infection December 2021, vaccinated and boosted 7. Osteoarthritis 8. Hearing disorder 9. GERD 10. Postoperative acute blood loss anemia, expected secondary to hemodilution 11. Presyncopal event, likely vasovagal Plan: 1. Continue to maximize medical therapy with full strength aspirin, statin, Plavix and beta rafa 2. Encourage incentive spirometry is 10 times every hour while awake. Bronchodilators per pulmonology 3. Increase activity, ambulate as tolerated. PT/OT/cardiac rehab following 4. Will monitor daily labs and x-rays. Electrolytes replacement per protocol 5. Pain control per current medication regimen 6. Insulin management per primary care service, patient is not diabetic, preoperative hemoglobin A1c 5.6% 7. Will discontinue left pleural chest tube 8. Continue to monitor and record strict accurate intake and output, daily weights 9. Will place transfer orders for 3 S. cardiac stepdown unit. May transfer when bed available 10. Discharge planning in progress. Anticipate discharge to home with home c are in the next 24-48 hours 11. More recommendations to follow
[2022-04-04] MEDS: IPRATROPIUM-ALBUTEROL 3 ML NEB INHALATION SCH ×4 (07:41→20:35)
--- NOTE | 2022-04-04 07:42 | P.PN ---
Subjective Progress Note Date: 04/04/22 Principal diagnosis: CAD and status post CABG The patient is a 71-year-old gentleman who is known to our service and follows with Dr. Montejo regularly who underwent recently as an outpatient workup for angina. He underwent a heart catheterization and that revealed occluded LAD by the bifurcation of the diagonal branch which has a severe disease. He also underwent an echocardiogram which revealed preserved left ventricular systolic function with no significant valvular abnormalities. The patient was referred for open heart and he underwent yesterday CABG. He underwent LEY to a diagonal and LAD. The procedure/surgery was uneventful and the patient was extubated yesterday. He was seen this morning. Overall he is stable from the cardiac vascular standpoint of view and currently is not on any vasopressors or any inotropic. He is entertaining normal sinus mechanism. The chest x-ray this morning showed small bilateral pleural effusion. His hemoglobin is is stable. His GFR is above 60. Urine output is reasonable. In terms off medication he is currently on dual antiplatelet therapy along with beta rafa as well as intermediate intensity statin. He was sitting in the chart does not look in any pain or any distress when he was seen this morning. April 032021 The patient was seen this morning. He did have an episode of presyncope earlier today. His pressure has been soft but his systolic pressure above 90 mmHg and his mean around 65 mmHg. He has been maintaining normal sinus mechanism. Urine output has been stable. He continues to be on dual antiplatelet therapy along with beta rafa along with high intensity statin. April 042021 The patient was seen this morning. He is doing better. He did have a good last night. He remains in normal sinus mechanism. He remains hemodynamically stable was overall soft blood pressure. He is on dual antiplatelet therapy along with high intensity statin along with beta rafa. Potentially he can be transferred to 3 S. later on today for possible discharge home in the next 24 hours. Objective - Vital Signs Vital signs: Vital Signs Temp 98.3 F 04/04/22 04:00 Pulse 92 04/04/22 07:00 Resp 18 04/04/22 07:00 BP 101/70 04/04/22 07:00 Pulse Ox 94 L 04/04/22 07:00 FiO2 50 04/01/22 16:08 Intake & Output 04/03/22 04/04/22 04/04/22 18:59 06:59 18:59 Intake Total 1274 840 Output Total 586 835 Balance 688 5 Weight 99.1 kg Intake: IV 66 Invasive Line 5 20 Pressure Bags 6 Sodium Chloride 0.9% 1, 40 000 ml @ 50 mls/hr IV . Q20H [facility] Rx#:[id number] Oral 1208 840 Tube Feeding 0 Blood Product 0 Output: Chest Tube Drainage 126 335 Chest Tube Left Pleural/ 96 335 Mediastinal Chest Tube Mediastinal 30 Urine 460 500 Stool 0 Other: Voiding Method Urinal Urinal # Bowel Movements 1 ABP, PAP, CO, CI - Last Documented Arterial Blood Pressure 131/51 Pulmonary Artery Pressure 20/6 Cardiac Output 5.2 Cardiac Index 2.5 - Constitutional General appearance: Present: no acute distress - Respiratory Respiratory: bilateral: diminished - Cardiovascular Rhythm: regular - Labs CBC & Chem 7: 04/04/22 03:24 04/04/22 03:24 Labs: Abnormal Lab Results - Last 24 Hours (Table) 04/03/22 04/03/22 04/04/22 Range/Units 11:20 17:19 03:24 RBC 3.61 L (4.30-5.90) m/uL Hgb 10.5 L (13.0-17.5) gm/dL Hct 32.3 L (39.0-53.0) % Plt Count 135 L (150-450) k/uL Sodium (137-145) mmol/L BUN (9-20) mg/dL Glucose (74-99) mg/dL POC Glucose (mg/dL) 141 H 117 H (70-110) mg/dL Total Protein (6.3-8.2) g/dL Albumin (3.5-5.0) g/dL 04/04/22 04/04/22 Range/Units 03:24 07:14 RBC (4.30-5.90) m/uL Hgb (13.0-17.5) gm/dL Hct (39.0-53.0) % Plt Count (150-450) k/uL Sodium 135 L (137-145) mmol/L BUN 21 H (9-20) mg/dL Glucose 101 H (74-99) mg/dL POC Glucose (mg/dL) 123 H (70-110) mg/dL Total Protein 5.1 L (6.3-8.2) g/dL Albumin 3.1 L (3.5-5.0) g/dL Assessment and Plan Assessment: Assessment Severe 2 vessel CAD and status post CABG as described above Hypertension Dyslipidemia An episode of presyncope Plan Continue the current medical regimen Possible transferred to 3 S. later on today Possible discharge home in the next 24 hour
[2022-04-04] MEDS ORDERED: ACETAMINOPHEN TAB 325 MG TAB PO PRN (07:44)
--- NOTE | 2022-04-04 08:24 | XR ---
EXAMINATION TYPE: XR chest 1V portable DATE OF EXAM: 04/04/2022 COMPARISON: Chest x-ray 04/03/2022 HISTORY: Postop coronary artery bypass graft TECHNIQUE: Single frontal view of the chest is obtained. FINDINGS: Patient is post median sternotomy and left atrial appendage clip placement. There is a lef t chest tube remaining in place, median sternal drains not seen as on prior, there may be epicardial pacing leads. There are overlying artifacts. No evident pneumothorax. Persistent retrocardiac density obscures the left hemidiaphragm. Cardiomediastinal silhouette is stable. There is some improvement i n lung volume. IMPRESSION: Improvement in aeration, lung volume. Persistent left lower lobe atelectasis and associa chelsea effusion.
--- NOTE | 2022-04-04 09:08 | P.PN ---
Subjective Progress Note Date: 04/04/22 HISTORY OF PRESENT ILLNESS This is a 71-year-old male patient with past medical history of hypertension, hyperlipidemia, gastroesophageal reflux disease. Patient has been newly establi shed in my office. He has been having symptoms of dyspnea on exertion and dizziness. Stress echocardiogram showed evidence of inferior and inferior septal ischemia with a normal systolic function at baseline. On 02/14/2022, patient underwent cardiac catheterization with Dr. 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 Ipsilateral and contralateral collaterals to the left anterior descending artery. No significant obstructive disease in the left circumflex and right coronary ar pita. Right dominance. Recommendations were for the patient to be evaluated for coronary artery bypass grafting. Patient has been brought in the hospital by cardiothoracic team for CABG. Patient is seen on postop day 0. He is in the intensive care unit currently on a nitroglycerin drip, propofol drip and clevidipine drip. Patient is intubated and on mechanical ventilation with tidal volume 500, FiO2 60, PEEP 10. Patient appears to be comfortable. Hemoglobin 8.9, PLT 101, WBC 6.7. Potassium is 3.6. BUN 14 creatinine 0.68. Blood sugar 107. Postoperative chest x-ray reveals postop findings with left lower lobe atelectasis and associated effusion. Post median sternotomy change. 04/02: Patient is sitting up in his recliner today is feeling well, still have chest tubes i place, he is using spirometer, we will continue to increase activity, we will continue to follow up with patient very closely, pain is well controlled with [place], and he is tolerating full liquids, no new issues, we will switch from insulin drip to SSI. 04/03: Patient is seen today in the intensive care unit. He states he is feeling tired and not sleeping well. He states he has terrible gas and not able to burp but passed a small amount of gas this morning a little diarrhea. Patient has a vasovagal episode while on the commode chair this morning but has been otherwise hemodynamically stable. Patient has been afebrile, heart rate in the 60s and 70s, blood pressure 109/73, pulse ox 90% on room air. 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 Patient is reaching 1000 on incentive spirometry. He remains with Yates catheter, [place] 3, Cordis in place. Repeat blood work reveals WBC 11.4, hemoglobin 11.1, platelet count 140. Sodium 136 otherwise electrolytes and renal function are normal with a creatinine of 0.98. Blood glucose running between 112 and 129. Liver function tests are normal. Repeat chest x-ray reveals left lower lobe atelectasis and associated effusion, difficult to exclude pneumonia, interstitial edema. 04/04: Patient is on today in the intensive care unit sitting in a chair and appears to be in no acute distress. Patient states he is feeling better today. He was able to sleep for 5 hours last night. He does have some abdominal loading but passing gas. No bowel movement this morning. Yates catheter is out and Cordis has been discontinued. He is utilizing incentive spirometry. Patient also states he is ambulated in the galaviz and done well with this. He ate a good breakfast today. He denies having any nausea or vomiting. Patient has been afebrile, heart rate 96, blood pressure 108/69, pulse ox 93% on room air. Repeat blood work reveals WBC 9.1, hemoglobin 10.5, platelet count 135. Sodium 135, potassium 4.3, chloride 103, CO2 24, BUN 21 and creatinine 1. liver function tests within normal limits. Repeat chest x-ray reveals improvement in aeration lung volume. Persistent left lower lobe atelectasis and associated effusion. Discharge plan is home with homecare. REVIEW OF SYSTEMS Constitutional: No fever, no chills, no night sweats. No weight change. No weakness, reports fatigue no lethargy. No daytime sleepiness. EENT: No headache. No blurred vision or double vision, no loss of vision. No loss of Hearing, no ringing in the ears, no dizziness. No nasal drainage or congestion. No epistaxis. No sore throat. Lungs: No shortness of breath, cough, no sputum production. No wheezing. Cardiovascular: No chest pain, no lower extremity edema. No palpitations. No paroxysmal nocturnal dyspnea. No orthopnea. No lightheadedness or dizziness. No syncopal episodes. Abdominal: No abdominal pain. No nausea, vomiting. Reports one episode of diarrhea. No constipation. No bloody or tarry stools. No loss of appetite. Genitourinary: No dysuria, increased frequency, urgency. No urinary retention. Yates catheter in place. Musculoskeletal: No myalgias. No muscle weakness, no gait dysfunction, no f requent falls. No back pain. No neck pain. Integumentary: No wounds, no lesions. No rash or pruritus. No unusual bruising. No change in hair or nails. Neurologic: No aphasia. No facial droop. No change in mentation. No head injury. No headache. No paralysis. No paresthesia. Psychiatric: No depression. No anxiety. No mood swings. Endocrine: No abnormal blood sugars. No weight change. No excessive sweating or thirst. No cold intolerance. PHYSICAL EXAMINATION Gen: This is a 71-year-old male. He is resting i recliner in the intensive care unit appears to be comfortable. No acute distress noted. HEENT: Head is atraumatic, normocephalic. Pupils equal, round. Sclerae is anicteric. NECK: Supple. No JVD. No lymphadenopathy. No thyromegaly. LUNGS: Clear to auscultation. No wheezes or rhonchi. No intercostal retractions. Chest tube 3 with serosanguineous drainage. HEART: Regular rate and rhythm. No murmur. Dressing over sternal wound is dry and intact, no drainage noted. ABDOMEN: Soft. Bowel sounds are present. No masses. No tenderness. EXTREMITIES: No pedal edema. No calf tenderness. Dorsalis pedis +2 bilaterally. Braeden wraps to the bilateral lower extremities, SCDs in place bilaterally NEUROLOGICAL: Patient is awake alert and oriented 3, able to move all 4 extremities with no neuro deficits.. ASSESSMENT AND PLAN 1. Coronary artery disease status post CABG, left internal mammary artery to the diagonal artery and a [id number] fashion, left anterior descending artery in an end to side fashion, postop day #3. we will continue with ASA 325 mg po daily, atorvastatin 80 mg at bedtime, Plavix 75 mg po daily, we will continue with current treatment plan, we will continue with Metoprolol 50 mg po bid 2. Acute hypoxic respiratory failure post extubation, expected with surgery. we will continue with aggessive pulmonary toiletting 3. Hypertension. Continue patient on Metoprolol 50 mg po bid 4. Hyperlipidemia. Continue atorvastatin 80 mg at bedtime. 5. Gastroesophageal reflux disease. Continue Protonix 40 mg daily. 6. Remote history of tobacco use. 7. DVT prophylaxis. Lovenox 40 mg subcu. 8. increase Activity. 9. Discontinue Insulin drip and continue him on SSI. DISCHARGE PLAN Home with [facility] Impression and plan of care have been directed as dictated by the signing physician. Dayana Hawley nurse practitioner acting as scribe for signing physician. Objective - Vital Signs Vital signs: Vital Signs Temp 98.2 F 04/04/22 08:00 Pulse 96 04/04/22 08:00 Resp 15 04/04/22 08:00 BP 108/69 04/04/22 08:00 Pulse Ox 93 L 04/04/22 08:00 FiO2 50 04/01/22 16:08 Intake & Output 04/03/22 04/04/22 04/04/22 18:59 06:59 18:59 Intake Total 1274 840 100 Output Total 586 835 0 Balance 688 5 100 Weight 99.1 kg Intake: IV 66 Invasive Line 5 20 Pressure Bags 6 Sodium Chloride 0.9% 1, 40 000 ml @ 50 mls/hr IV . Q20H [facility] Rx#:[id number] Oral 1208 840 100 Tube Feeding 0 Blood Product 0 Output: Chest Tube Drainage 126 335 Chest Tube Left Pleural/ 96 335 Mediastinal Chest Tube Mediastinal 30 Urine 460 500 0 Stool 0 Other: Voiding Method Urinal Urinal Urinal # Bowel Movements 1 0 ABP, PAP, CO, CI - Last Documented Arterial Blood Pressure 131/51 Pulmonary Artery Pressure 20/6 Cardiac Output 5.2 Cardiac Index 2.5 - Labs CBC & Chem 7: 04/04/22 03:24 04/04/22 03:24 Labs: Abnormal Lab Results - Last 24 Hours (Table) 04/03/22 04/03/22 04/04/22 Range/Units 11:20 17:19 03:24 RBC 3.61 L (4.30-5.90) m/uL Hgb 10.5 L (13.0-17.5) gm/dL Hct 32.3 L (39.0-53.0) % Plt Count 135 L (150-450) k/uL Sodium (137-145) mmol/L BUN (9-20) mg/dL Glucose (74-99) mg/dL POC Glucose (mg/dL) 141 H 117 H (70-110) mg/dL Total Protein (6.3-8.2) g/dL Albumin (3.5-5.0) g/dL 04/04/22 04/04/22 Range/Units 03:24 07:14 RBC (4.30-5.90) m/uL Hgb (13.0-17.5) gm/dL Hct (39.0-53.0) % Plt Count (150-450) k/uL Sodium 135 L (137-145) mmol/L BUN 21 H (9-20) mg/dL Glucose 101 H (74-99) mg/dL POC Glucose (mg/dL) 123 H (70-110) mg/dL Total Protein 5.1 L (6.3-8.2) g/dL Albumin 3.1 L (3.5-5.0) g/dL
[2022-04-04] MEDS: METOPROLOL TARTRATE 50 MG TAB PO SCH ×2 (09:18→20:47)
[2022-04-04] MEDS: ASPIRIN 325 MG TAB PO SCH (09:18)
[2022-04-04] MEDS: ENOXAPARIN 40 MG/0.4 ML SYRINGE SQ SCH (09:19)
[2022-04-04] MEDS: CLOPIDOGREL 75 MG TAB PO SCH (09:19)
[2022-04-04] MEDS: VIT A,C & E-LUTEIN-MINERALS 1 EACH TAB PO SCH ×2 (09:19→20:48)
[2022-04-04 11:07] LABS: Glucose,Whole Blood 106 mg/dL (70-110)
--- NOTE | 2022-04-04 11:55 | P.PN ---
Subjective Progress Note Date: 04/04/22 Principal diagnosis: S/P CABG. Pulmonary/critical care consultation, 04/01/2022. 71-year-old male, that were asked to see in the intensive care unit, after having a two-vessel bypass grafting. He has a history of hypertension, hyperlipidemia, and gastroesophageal reflux disease. The patient apparently was having symptoms of shortness of breath on exertion, and dizziness, and echocardiogram showed evidence of inferior and inferior septal ischemia with normal systolic function at baseline. Cardiac catheterization was done by Dr. 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 The patient was sent to be evaluated by cardiothoracic surgery for bypass grafting. He is currently on the ventilator, with settings of volume assist control, rate of 14, tidal volume 500, FiO2 50%, and PEEP of 10. Blood gases on 100% show pO2 of 277, pCO2 39, pH is 7.38. The patient's cardiac output is 6.9, with an index of 3.3. The patient's currently on Cleveprex at 3 mg an hour, nitroglycerin at 5 mcg/m, and propofol at 25 mcg/kg/m. In addition, the patient is getting lactated Ringer's at 50 mL an hour. White count 6.7, hemoglobin 8.9, hematocrit 26.6, platelet count 201,000. Sodium 138, potassium 3.6, chlorides 108, CO2 21, BUN 14, creatinine 0.68. Chest x-ray shows postsurgical changes, as well as some bibasilar atelectasis. Progress note dated 04/02/2022. 71-year-old male seen in room 264. He was seen in consultation yesterday. The patient underwent a two-vessel bypass grafting. Today is postop day #1. He has a history of hypertension, hyperlipidemia, and GERD. Currently he is on 2 L of oxygen. He is getting saline at 20 mL an hour. The insulin drip is on hold. Other than for some pain, at the surgical site, the patient's doing reasonably well. White count 9.9, hemoglobin 11.5, hematocrit 33.6, and platelet count 241,000. Sodium 134, potassium 4.4, chlorides 103, CO2 23, BUN 11, creatinine 0.7. The patient's chest x-ray showing evidence of left lower lobe atelectasis, and a small effusion. Progress note dated 04/03/2022 71-year-old male seen again in room 264. The patient is postop day #2, status post two-vessel bypass grafting. He is currently on 2 L of oxygen. He is getting saline at 20 mL an hour. He apparently had an episode earlier this morning, which may have been a vasovagal episode. He apparently lost consciousness for about 6 seconds. He apparently was getting out of bed to have a bowel movement. He's feeling back to normal now. White count 11.4, hemoglobin 11.1, hematocrit 33, platelet count 140,000. Sodium 136, with a normal potassium, chloride, CO2, anion gap, BUN, and creatinine. Chest x-ray shows some atelectasis and a small effusion at the left lung base. Progress note dated 04/04/2022. 71-year-old male seen in room 264. He is postop day #3, status post two-vessel bypass grafting. He is on room air. He's not receiving any IV fluids. According to the cardiothoracic nurse, he may be discharged possibly tomorrow. White count 9.1, hemoglobin 10.5, hematocrit 32.3, and platelet count 235,000. Sodium 135, potassium 4.3, chlorides 103, CO2 24, BUN 21, and creatinine 1.0. Albumin 3.1. Chest x-ray shows improved aeration bilaterally, with persistent left lower lobe atelectasis, and small effusion. Objective - Vital Signs Vital signs: Vital Signs Temp 98.2 F 04/04/22 08:00 Pulse 96 04/04/22 08:00 Resp 15 04/04/22 08:00 BP 108/69 04/04/22 08:00 Pulse Ox 93 L 04/04/22 08:00 FiO2 50 04/01/22 16:08 Intake & Output 04/03/22 04/04/22 04/04/22 18:59 06:59 18:59 Intake Total 1274 840 100 Output Total 586 835 0 Balance 688 5 100 Weight 99.1 kg Intake: IV 66 Invasive Line 5 20 Pressure Bags 6 Sodium Chloride 0.9% 1, 40 000 ml @ 50 mls/hr IV . Q20H [facility] Rx#:[id number] Oral 1208 840 100 Tube Feeding 0 Blood Product 0 Output: Chest Tube Drainage 126 335 0 Chest Tube Left Pleural/ 96 335 0 Mediastinal Chest Tube Mediastinal 30 Urine 460 500 0 Stool 0 Other: Voiding Method Urinal Urinal Urinal # Bowel Movements 1 0 ABP, PAP, CO, CI - Last Documented Arterial Blood Pressure 131/51 Pulmonary Artery Pressure 20/6 Cardiac Output 5.2 Cardiac Index 2.5 - Exam No acute distress, oriented 3. Currently on no supplemental oxygen. HEENT examination is grossly unremarkable. Neck supple. Full range of motion. No adenopathy thyromegaly or neck vein distention. Cardiovascular examination reveals regular rhythm rate. S1-S2 normal. No S3 or S4. No discernible murmur noted. Heart rate 81 bpm. Lungs reveal mostly clear breath sounds. Scattered rhonchi are noted. No wheezes or crackles. Breath sounds equal bilaterally. Room air saturation is 93%. Abdomen soft bowel sounds are heard. No masses or tenderness. Extremities are intact. No cyanosis clubbing or edema. Skin is without rash or lesion. Neurologic examination is brief but nonfocal. - Labs CBC & Chem 7: 04/04/22 03:24 04/04/22 03:24 Labs: Abnormal Lab Results - Last 24 Hours (Table) 04/03/22 04/04/22 04/04/22 Range/Units 17:19 03:24 03:24 RBC 3.61 L (4.30-5.90) m/uL Hgb 10.5 L (13.0-17.5) gm/dL Hct 32.3 L (39.0-53.0) % Plt Count 135 L (150-450) k/uL Sodium 135 L (137-145) mmol/L BUN 21 H (9-20) mg/dL Glucose 101 H (74-99) mg/dL POC Glucose (mg/dL) 117 H (70-110) mg/dL Total Protein 5.1 L (6.3-8.2) g/dL Albumin 3.1 L (3.5-5.0) g/dL 04/04/22 Range/Units 07:14 RBC (4.30-5.90) m/uL Hgb (13.0-17.5) gm/dL Hct (39.0-53.0) % Plt Count (150-450) k/uL Sodium (137-145) mmol/L BUN (9-20) mg/dL Glucose (74-99) mg/dL POC Glucose (mg/dL) 123 H (70-110) mg/dL Total Protein (6.3-8.2) g/dL Albumin (3.5-5.0) g/dL Assessment and Plan Assessment: Postop day #3, off pump two-vessel bypass grafting, LEY to LAD to diagonal, exclusion of left atrial appendage, and intraoperative transesophageal echocardiogram. Routine postoperative ventilator management, S/P successful extubation on . History of hypertension. History of hyperlipidemia. History of gastroesophageal reflux disease. Plan: Plan dated 04/01/2022. The patient is seen in the intensive care unit. FiO2 was dropped from 100% to 50%, after the pO2 was found to be 277. Cardiac up at 6.9. Index is 3.3. The patient is on Cleveprex at 3 mg an hour, nitroglycerin at 5 mcg/m, and propofol at 25 mcg/kg/m. The patient's also receiving lactated Ringer's at 50 mL the patient will be extubated within the 6 hour window. Follow, make recommendations along the way. Post extubation, the patient will focus on deep breathing, coughing, and clearing of secretions, and hourly use of the incentive spirometer. Plan dated 04/02/2022. The patient is encouraged to deep breathe, cough, and clear secretions. We also encouraged the patient to use the incentive spirometer, every hour while awake. Labs, x-rays, medications are reviewed. Today's postop day #1. The patient appears to be doing reasonably well. He was extubated within the 6 hour window. We will continue to follow make recommendations. Prognosis is guarded. Plan dated 04/03/2022. The patient appears to be doing relatively well. He did have an episode earlier this morning which may have been a vasovagal episode. He was getting out of bed to have a bowel movement. She apparently lost consciousness for about 6 seconds. Currently, he's on 2 L. Labs, x-rays, and medications are reviewed. We told him to really work on his incentive spirometer, as he has some collapse and atelectasis at the left lung base. We will continue to follow make recommendations where appropriate. Plan dated 04/04/2022. Labs, x-rays, and medications are all reviewed. The patient may be discharged possibly tomorrow. He is on room air. No IV fluids. Chest tubes and mediastinal tubes are being removed. Labs, x-rays, and medications are all reviewed. Clinically, the patient's doing well. He is on room air. Is not receiving any IV fluids. He continues to work on the incentive spirometer. Time with Patient: Less than 30
[2022-04-04 16:45] LABS: Glucose,Whole Blood 101 mg/dL (70-110)
[2022-04-04] MEDS: TAMSULOSIN 0.4 MG CAP.ER.24H PO SCH (18:17)
[2022-04-04] MEDS: ATORVASTATIN 80 MG TAB PO SCH (20:47)
[2022-04-04] MEDS: SENNOSIDES-DOCUSATE SODIUM 1 EACH TAB PO SCH (20:49)
[2022-04-04 20:52] LABS: Glucose,Whole Blood 118 mg/dL (70-110)
[2022-04-05] MEDS: HYDROcodone/APAP 5-325MG 1 EACH TAB PO PRN (00:24)
[2022-04-05] MEDS: KETOROLAC 15 MG/ML 1 ML VIAL IVP SCH ×2 (00:29→05:39)
[2022-04-05 04:02] LABS: HCT 30.3 % (39.0-53.0); HGB 10.1 gm/dL (13.0-17.5); MCH 29.8 pg (25.0-35.0); MCHC 33.5 g/dL (31.0-37.0); MCV 89.1 fL (80.0-100.0); Mean Platelet Volume 8.8; Platelet Count 170 k/uL (150-450); RDW 12.7 % (11.5-15.5); WBC 8.2 k/uL (3.8-10.6)
[2022-04-05 04:19] LABS: Calcium 8.4 mg/dL (8.4-10.2); Potassium 4.1 mmol/L (3.5-5.1)
[2022-04-05 05:20] LABS: Glucose,Whole Blood 150 mg/dL (70-110)
[2022-04-05 06:48] LABS: Glucose,Whole Blood 122 mg/dL (70-110)
[2022-04-05] MEDS: INSULIN ASPART (NovoLOG) 100 UNIT/ML VIAL SQ SCH ×2 (06:48→11:31)
[2022-04-05] MEDS: PANTOPRAZOLE 40 MG TABLET PO SCH (06:50)
--- NOTE | 2022-04-05 07:19 | P.PN ---
Subjective Progress Note Date: 04/05/22 Principal diagnosis: Coronary artery disease with total occlusion of the left anterior descending coronary artery, overall preserved left ventricular function. Previous medical history of hypertension, hyperlipidemia, previous tobacco dependence, positive Covid infection December 2021, vaccinated and boosted, osteoarthritis, hearing disorder, and GERD POD #4 off-pump total arterial coronary artery bypass grafting using left internal mammary artery to the diagonal coronary artery and a [id number] fashion, then to the left anterior descending coronary artery in an end-to-side fashion. Exclusion of left atrial appendage using a 40 mm Atriclip, intraoperative graft flow measurements using the Medistim sytem and intraoperative transesophageal echocardiogram. Postoperative acute blood loss anemia, expected secondary to hemodilution Presyncopal event, likely vasovagal The patient was seen and examined this morning sitting up in a recliner in the intensive care unit in no acute distress. States pain is well controlled on current medication regimen, denies shortness of breath. His only complaint is of extreme tiredness as he has not gotten much sleep. He has been ambulatory without difficulty. Patient did have a brief episode of dizziness this morning when in the hot shower, no loss of consciousness, resolved quickly without incident, vital signs stable. Currently on room air with oxygen saturation in the mid 90s, able to achieve 1500 mL on his incentive spirometry. Transfer orders were placed yesterday for 3 S. cardiac stepdown unit, however no beds we re available and patient remains in the intensive care unit as an overflow patient. Patient is looking forward to going home today. No other new concerns at this time. Objective - Vital Signs Vital signs: Vital Signs Temp 98.0 F 04/05/22 04:00 Pulse 87 04/05/22 04:00 Resp 24 04/05/22 04:00 BP 124/75 04/05/22 04:00 Pulse Ox 91 L 04/05/22 04:00 FiO2 50 04/01/22 16:08 Intake & Output 04/04/22 04/05/22 04/05/22 18:59 06:59 18:59 Intake Total 873 360 Output Total 275 750 Balance 598 -390 Weight 99.8 kg Intake: Oral 873 360 Output: Chest Tube Drainage 0 Chest Tube Left Pleural/ 0 Mediastinal Urine 275 750 Other: Voiding Method Urinal Urinal # Voids 1 # Bowel Movements 0 ABP, PAP, CO, CI - Last Documented Arterial Blood Pressure 131/51 Pulmonary Artery Pressure 20/6 Cardiac Output 5.2 Cardiac Index 2.5 - Exam CONSTITUTIONAL: Appears comfortable, cooperative, no acute distress RESPIRATORY: Lungs sounds diminished in the bases bilaterally. Respirations even, nonlabored. Currently on room air with oxygen saturation 94%. Able to achieve 1500 mL on incentive spirometry. Strong nonproductive cough. CARDIOVASCULAR: S1, S2 present. Regular rate and rhythm, sinus rhythm on telemetry. Sternum stable. Palpable peripheral pulses bilaterally. No edema present. No calf pain or tenderness noted. Heart hugger in place with patient demonstrating appropriate use. Antiembolism stockings, SCDs present. GASTROINTESTINAL: Abdomen soft, nontender, nondistended. Active bowel sounds present 4 quadrants. Tolerating diet. Positive bowel movement 04/04 GENITOURINARY: Continues to void INTEGUMENTARY: Skin is warm and dry with evidence of good perfusion. Anterior chest incision well approximated NEUROLOGIC: Cranial nerves II through XII intact MUSKULOSKELETAL: Able to move all extremities, strength equal bilaterally, gait normal PSYCHIATRIC: Alert and oriented to person place and time, appropriate affect, intact judgment and insight - Allied health notes Allied health notes reviewed: nursing - Labs CBC & Chem 7: 04/05/22 03:29 04/05/22 03:29 Labs: Abnormal Lab Results - Last 24 Hours (Table) 04/04/22 04/04/22 04/05/22 Range/Units 07:14 20:51 03:29 RBC 3.40 L (4.30-5.90) m/uL Hgb 10.1 L (13.0-17.5) gm/dL Hct 30.3 L (39.0-53.0) % Sodium (137-145) mmol/L BUN (9-20) mg/dL Glucose (74-99) mg/dL POC Glucose (mg/dL) 123 H 118 H (70-110) mg/dL 04/05/22 04/05/22 04/05/22 Range/Units 03:29 05:18 06:46 RBC (4.30-5.90) m/uL Hgb (13.0-17.5) gm/dL Hct (39.0-53.0) % Sodium 135 L (137-145) mmol/L BUN 22 H (9-20) mg/dL Glucose 108 H (74-99) mg/dL POC Glucose (mg/dL) 150 H 122 H (70-110) mg/dL - Imaging and Cardiology Chest x-ray: image reviewed Assessment and Plan Assessment: 1. Coronary artery disease with total occlusion of the left anterior descending coronary artery, status post 2 vessel off-pump CABG 2. Overall preserved left ventricular function 3. History of hypertension 4. History of hyperlipidemia, treated, cholesterol 126, LDL 70 5. Previous tobacco dependence, preoperative FEV1 81% of predicted 6. Positive Covid infection December 2021, vaccinated and boosted 7. Osteoarthritis 8. Hearing disorder 9. GERD 10. Postoperative acute blood loss anemia, expected secondary to hemodilution 11. Presyncopal event, likely vasovagal Plan: 1. Continue to maximize medical therapy with aspirin, statin, Plavix and beta rafa 2. Encourage incentive spirometry is 10 times every hour while awake. Bronchodilators per pulmonology 3. Increase activity, ambulate as tolerated. PT/OT/cardiac rehab following 4. Will monitor daily labs and x-rays. Electrolytes replacement per protocol 5. Pain control per current medication regimen 6. Insulin management per primary care service, patient is not diabetic, preoperative hemoglobin A1c 5.6% 7. Continue to monitor and record strict accurate intake and output, daily weights 8. Discharge planning in progress. Anticipate discharge to home with home care today 9. More recommendations to follow
[2022-04-05] MEDS ORDERED: KETOROLAC 15 MG/ML 1 ML VIAL IVP PRN (07:21)
[2022-04-05] MEDS: IPRATROPIUM-ALBUTEROL 3 ML NEB INHALATION SCH ×2 (08:00→11:46)
[2022-04-05] MEDS: METOPROLOL TARTRATE 50 MG TAB PO SCH (08:58)
[2022-04-05] MEDS: CLOPIDOGREL 75 MG TAB PO SCH (08:58)
[2022-04-05] MEDS: ENOXAPARIN 40 MG/0.4 ML SYRINGE SQ SCH (08:58)
[2022-04-05] MEDS: ASPIRIN 325 MG TAB PO SCH (08:58)
--- NOTE | 2022-04-05 08:58 | P.PN ---
Subjective Progress Note Date: 04/05/22 Principal diagnosis: CAD and status post CABG The patient is a 71-year-old gentleman who is known to our service and follows with Dr. Montejo regularly who underwent recently as an outpatient workup for angina. He underwent a heart catheterization and that revealed occluded LAD by the bifurcation of the diagonal branch which has a severe disease. He also underwent an echocardiogram which revealed preserved left ventricular systolic function with no significant valvular abnormalities. The patient was referred for open heart and he underwent yesterday CABG. He underwent LEY to a diagonal and LAD. The procedure/surgery was uneventful and the patient was extubated yesterday. He was seen this morning. Overall he is stable from the cardiac vascular standpoint of view and currently is not on any vasopressors or any inotropic. He is entertaining normal sinus mechanism. The chest x-ray this morning showed small bilateral pleural effusion. His hemoglobin is is stable. His GFR is above 60. Urine output is reasonable. In terms off medication he is currently on dual antiplatelet therapy along with beta rafa as well as intermediate intensity statin. He was sitting in the chart does not look in any pain or any distress when he was seen this morning. April 032021 The patient was seen this morning. He did have an episode of presyncope earlier today. His pressure has been soft but his systolic pressure above 90 mmHg and his mean around 65 mmHg. He has been maintaining normal sinus mechanism. Urine output has been stable. He continues to be on dual antiplatelet therapy along with beta rafa along with high intensity statin. April 042021 The patient was seen this morning. He is doing better. He did have a good last night. He remains in normal sinus mechanism. He remains hemodynamically stable was overall soft blood pressure. He is on dual antiplatelet therapy along with high intensity statin along with beta rafa. Potentially he can be transferred to 3 S. later on today for possible discharge home in the next 24 hours. April 052021 The patient was seen this morning. Overall he is stable. The plan is to be d ischarged later on today this afternoon. He is on maximize medical treatment. Objective - Vital Signs Vital signs: Vital Signs Temp 98.0 F 04/05/22 04:00 Pulse 92 04/05/22 08:10 Resp 24 04/05/22 04:00 BP 124/75 04/05/22 04:00 Pulse Ox 91 L 04/05/22 04:00 FiO2 50 04/01/22 16:08 Intake & Output 04/04/22 04/05/22 04/05/22 18:59 06:59 18:59 Intake Total 873 360 Output Total 275 750 Balance 598 -390 Weight 99.8 kg Intake: Oral 873 360 Output: Chest Tube Drainage 0 Chest Tube Left Pleural/ 0 Mediastinal Urine 275 750 Other: Voiding Method Urinal Urinal # Voids 1 # Bowel Movements 0 ABP, PAP, CO, CI - Last Documented Arterial Blood Pressure 131/51 Pulmonary Artery Pressure 20/6 Cardiac Output 5.2 Cardiac Index 2.5 - Constitutional General appearance: Present: no acute distress - Respiratory Respiratory: bilateral: diminished - Cardiovascular Rhythm: regular - Labs CBC & Chem 7: 04/05/22 03:29 04/05/22 03:29 Labs: Abnormal Lab Results - Last 24 Hours (Table) 04/04/22 04/05/22 04/05/22 Range/Units 20:51 03:29 03:29 RBC 3.40 L (4.30-5.90) m/uL Hgb 10.1 L (13.0-17.5) gm/dL Hct 30.3 L (39.0-53.0) % Sodium 135 L (137-145) mmol/L BUN 22 H (9-20) mg/dL Glucose 108 H (74-99) mg/dL POC Glucose (mg/dL) 118 H (70-110) mg/dL 04/05/22 04/05/22 Range/Units 05:18 06:46 RBC (4.30-5.90) m/uL Hgb (13.0-17.5) gm/dL Hct (39.0-53.0) % Sodium (137-145) mmol/L BUN (9-20) mg/dL Glucose (74-99) mg/dL POC Glucose (mg/dL) 150 H 122 H (70-110) mg/dL Assessment and Plan Assessment: Assessment Severe 2 vessel CAD and status post CABG as described above Hypertension Dyslipidemia An episode of presyncope Plan Continue the current medical regimen Possible transferred to 3 S. later on today Possible discharge later on today
--- NOTE | 2022-04-05 08:58 | XR ---
EXAMINATION TYPE: XR chest 2V DATE OF EXAM: 04/05/2022 COMPARISON: Chest x-ray 04/04/2022 HISTORY: Status post cardiac surgery TECHNIQUE: Frontal and lateral views of the chest are obtained. FINDINGS: Patient is post median sternotomy and left atrial appendage clip placement. Heart and medi astinal silhouette is stable. Suspect some improvement in aeration at the left lung base. There are o verlying artifacts. No evident pneumothorax. IMPRESSION: There is some improvement in aeration in the left lower lobe. Persistent left lower lobe atelectasis, there may be a small amount of pleural fluid.
[2022-04-05] MEDS: VIT A,C & E-LUTEIN-MINERALS 1 EACH TAB PO SCH (08:59)
[2022-04-05 09:20] VITALS: BP 120/58; PULSE 98; RESP 18; TEMP 98.9
[2022-04-05 11:15] LABS: Glucose,Whole Blood 111 mg/dL (70-110)
--- NOTE | 2022-04-05 11:50 | P.PN ---
Subjective Progress Note Date: 04/05/22 HISTORY OF PRESENT ILLNESS This is a 71-year-old male patient with past medical history of hypertension, hyperlipidemia, gastroesophageal reflux disease. Patient has been newly establi shed in my office. He has been having symptoms of dyspnea on exertion and dizziness. Stress echocardiogram showed evidence of inferior and inferior septal ischemia with a normal systolic function at baseline. On 02/14/2022, patient underwent cardiac catheterization with Dr. 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 Ipsilateral and contralateral collaterals to the left anterior descending artery. No significant obstructive disease in the left circumflex and right coronary ar pita. Right dominance. Recommendations were for the patient to be evaluated for coronary artery bypass grafting. Patient has been brought in the hospital by cardiothoracic team for CABG. Patient is seen on postop day 0. He is in the intensive care unit currently on a nitroglycerin drip, propofol drip and clevidipine drip. Patient is intubated and on mechanical ventilation with tidal volume 500, FiO2 60, PEEP 10. Patient appears to be comfortable. Hemoglobin 8.9, PLT 101, WBC 6.7. Potassium is 3.6. BUN 14 creatinine 0.68. Blood sugar 107. Postoperative chest x-ray reveals postop findings with left lower lobe atelectasis and associated effusion. Post median sternotomy change. 04/02: Patient is sitting up in his recliner today is feeling well, still have chest tubes i place, he is using spirometer, we will continue to increase activity, we will continue to follow up with patient very closely, pain is well controlled with [place], and he is tolerating full liquids, no new issues, we will switch from insulin drip to SSI. 04/03: Patient is seen today in the intensive care unit. He states he is feeling tired and not sleeping well. He states he has terrible gas and not able to burp but passed a small amount of gas this morning a little diarrhea. Patient has a vasovagal episode while on the commode chair this morning but has been otherwise hemodynamically stable. Patient has been afebrile, heart rate in the 60s and 70s, blood pressure 109/73, pulse ox 90% on room air. telemetry monitor is sinus rhythm. Patient is reaching 1000 on incentive spirometry. He remains with Yates catheter, Schleicher 3, Cordis in place. Repeat blood work reveals WBC 11.4, hemoglobin 11.1, platelet count 140. Sodium 136 otherwise electrolytes and renal function are normal with a creatinine of 0.98. Blood glucose running between 112 and 129. Liver function tests are normal. Repeat chest x-ray reveals left lower lobe atelectasis and associated effusion, difficult to exclude pneumonia, interstitial edema. 04/04: Patient is on today in the intensive care unit sitting in a chair and appears to be in no acute distress. Patient states he is feeling better today. He was able to sleep for 5 hours last night. He does have some abdominal loading but passing gas. No bowel movement this morning. Yates catheter is out and Cordis has been discontinued. He is utilizing incentive spirometry. Patient also states he is ambulated in the galaviz and done well with this. He ate a good breakfast today. He denies having any nausea or vomiting. Patient has been afebrile, heart rate 96, blood pressure 108/69, pulse ox 93% on room air. Repeat blood work reveals WBC 9.1, hemoglobin 10.5, platelet count 135. Sodium 135, potassium 4.3, chloride 103, CO2 24, BUN 21 and creatinine 1. liver function tests within normal limits. Repeat chest x-ray reveals improvement in aeration lung volume. Persistent left lower lobe atelectasis and associated effusion. Discharge plan is home with homecare. 04/05: Patient remains in the intensive care unit but waiting for a bed on the cardiac stepdown unit. Patient states he only received 2 hours of sleep last night and feels tired today. He did take an [place] before bed hoping that would help but it did not. He normally does not have a problem with sleeping and does not expect to have any problems at home. He is a little sore in the chest surgical site area otherwise no chest pain. He denies any heartburn. He did have a bowel movement last night. Patient states that he is planning on discha rge home later today. He has been afebrile, heart rate in the 90s, blood pressure 120/58, pulse ox 93% on room air. Repeat blood work reveals WBC 8.2, hemoglobin 10.1, platelet count 170. Sodium 135, potassium 4.1, chloride 102, CO2 23, BUN 22 creatinine 1.09. Lately blood glucose running between 111 and 150. Chest x-ray reveals some improvement in aeration in the left lower lobe. Persistent left lower lobe atelectasis, there may be small amount of pleural fluid. Patient will have follow-up appointment with Dr. Wynne in the next week. REVIEW OF SYSTEMS Constitutional: No fever, no chills, no night sweats. No weight change. No weakness, reports fatigue no lethargy. No daytime sleepiness. EENT: No headache. No blurred vision or double vision, no loss of vision. No loss of Hearing, no ringing in the ears, no dizziness. No nasal drainage or congestion. No epistaxis. No sore throat. Lungs: No shortness of breath, cough, no sputum production. No wheezing. Cardiovascular: No chest pain, mild surgical site discomfort. no lower extremity edema. No palpitations. No paroxysmal nocturnal dyspnea. No orthopnea. No lightheadedness or dizziness. No syncopal episodes. Abdominal: No abdominal pain. No nausea, vomiting. Reports one episode of diarrhea. No constipation. No bloody or tarry stools. No loss of appetite. Genitourinary: No dysuria, increased frequency, urgency. No urinary retention. Yates catheter in place. Musculoskeletal: No myalgias. No muscle weakness, no gait dysfunction, no frequent falls. No back pain. No neck pain. Integumentary: No wounds, no lesions. No rash or pruritus. No unusual bruising. No change in hair or nails. Neurologic: No aphasia. No facial droop. No change in mentation. No head injury. No headache. No paralysis. No paresthesia. Psychiatric: No depression. No anxiety. No mood swings. Endocrine: No abnormal blood sugars. No weight change. No excessive sweating or thirst. No cold intolerance. PHYSICAL EXAMINATION Gen: This is a 71-year-old male. He is resting in recliner in the intensive care unit appears to be comfortable. No acute distress noted. HEENT: Head is atraumatic, normocephalic. Pupils equal, round. Sclerae is anicteric. NECK: Supple. No JVD. No lymphadenopathy. No thyromegaly. LUNGS: Clear to auscultation. No wheezes or rhonchi. No intercostal retractions. HEART: Regular rate and rhythm. No murmur. Dressing over sternal wound is dry and intact, no drainage noted. ABDOMEN: Soft. Bowel sounds are present. No masses. No tenderness. EXTREMITIES: No pedal edema. No calf tenderness. Dorsalis pedis +2 bilaterally. Braeden wraps to the bilateral lower extremities, SCDs in place bilaterally NEUROLOGICAL: Patient is awake alert and oriented 3, able to move all 4 extremities with no neuro deficits.. ASSESSMENT AND PLAN 1. Coronary artery disease status post CABG, left internal mammary artery to the diagonal artery and a [id number] fashion, left anterior descending artery in an end to side fashion, postop day #4. we will continue with ASA 325 mg po daily, atorvastatin 80 mg at bedtime, Plavix 75 mg po daily, we will continue with current treatment plan, we will continue with Metoprolol 50 mg po bid 2. Acute hypoxic respiratory failure post extubation, expected with surgery. we will continue with aggessive pulmonary toiletting 3. Hypertension. Continue patient on Metoprolol 50 mg po bid 4. Hyperlipidemia. Continue atorvastatin 80 mg at bedtime. 5. Gastroesophageal reflux disease. Continue Protonix 40 mg daily. 6. Remote history of tobacco use. 7. DVT prophylaxis. Lovenox 40 mg subcu. 8. increase Activity. 9. Discontinue Insulin drip and continue him on SSI. DISCHARGE PLAN Home with [facility] Impression and plan of care have been directed as dictated by the signing physician. Dayana Hawley nurse practitioner acting as scribe for signing physi adolfo. Objective - Vital Signs Vital signs: Vital Signs Temp 98.0 F 04/05/22 04:00 Pulse 92 04/05/22 08:10 Resp 24 04/05/22 04:00 BP 124/75 04/05/22 04:00 Pulse Ox 91 L 04/05/22 04:00 FiO2 50 04/01/22 16:08 Intake & Output 04/04/22 04/05/22 04/05/22 18:59 06:59 18:59 Intake Total 873 360 Output Total 275 750 Balance 598 -390 Weight 99.8 kg Intake: Oral 873 360 Output: Chest Tube Drainage 0 Chest Tube Left Pleural/ 0 Mediastinal Urine 275 750 Other: Voiding Method Urinal Urinal # Voids 1 # Bowel Movements 0 ABP, PAP, CO, CI - Last Documented Arterial Blood Pressure 131/51 Pulmonary Artery Pressure 20/6 Cardiac Output 5.2 Cardiac Index 2.5 - Labs CBC & Chem 7: 04/05/22 03:29 04/05/22 03:29 Labs: Abnormal Lab Results - Last 24 Hours (Table) 04/04/22 04/05/22 04/05/22 Range/Units 20:51 03:29 03:29 RBC 3.40 L (4.30-5.90) m/uL Hgb 10.1 L (13.0-17.5) gm/dL Hct 30.3 L (39.0-53.0) % Sodium 135 L (137-145) mmol/L BUN 22 H (9-20) mg/dL Glucose 108 H (74-99) mg/dL POC Glucose (mg/dL) 118 H (70-110) mg/dL 04/05/22 04/05/22 Range/Units 05:18 06:46 RBC (4.30-5.90) m/uL Hgb (13.0-17.5) gm/dL Hct (39.0-53.0) % Sodium (137-145) mmol/L BUN (9-20) mg/dL Glucose (74-99) mg/dL POC Glucose (mg/dL) 150 H 122 H (70-110) mg/dL
--- NOTE | 2022-04-05 11:50 | P.PN ---
Subjective Progress Note Date: 04/05/22 Principal diagnosis: S/P CABG. Pulmonary/critical care consultation, 04/01/2022. 71-year-old male, that were asked to see in the intensive care unit, after having a two-vessel bypass grafting. He has a history of hypertension, hyperlipidemia, and gastroesophageal reflux disease. The patient apparently was having symptoms of shortness of breath on exertion, and dizziness, and echocardiogram showed evidence of inferior and inferior septal ischemia with normal systolic function at baseline. Cardiac catheterization was done by Dr. 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 The patient was sent to be evaluated by cardiothoracic surgery for bypass grafting. He is currently on the ventilator, with settings of volume assist control, rate of 14, tidal volume 500, FiO2 50%, and PEEP of 10. Blood gases on 100% show pO2 of 277, pCO2 39, pH is 7.38. The patient's cardiac output is 6.9, with an index of 3.3. The patient's currently on Cleveprex at 3 mg an hour, nitroglycerin at 5 mcg/m, and propofol at 25 mcg/kg/m. In addition, the patient is getting lactated Ringer's at 50 mL an hour. White count 6.7, hemoglobin 8.9, hematocrit 26.6, platelet count 201,000. Sodium 138, potassium 3.6, chlorides 108, CO2 21, BUN 14, creatinine 0.68. Chest x-ray shows postsurgical changes, as well as some bibasilar atelectasis. Progress note dated 04/02/2022. 71-year-old male seen in room 264. He was seen in consultation yesterday. The patient underwent a two-vessel bypass grafting. Today is postop day #1. He has a history of hypertension, hyperlipidemia, and GERD. Currently he is on 2 L of oxygen. He is getting saline at 20 mL an hour. The insulin drip is on hold. Other than for some pain, at the surgical site, the patient's doing reasonably well. White count 9.9, hemoglobin 11.5, hematocrit 33.6, and platelet count 241,000. Sodium 134, potassium 4.4, chlorides 103, CO2 23, BUN 11, creatinine 0.7. The patient's chest x-ray showing evidence of left lower lobe atelectasis, and a small effusion. Progress note dated 04/03/2022 71-year-old male seen again in room 264. The patient is postop day #2, status post two-vessel bypass grafting. He is currently on 2 L of oxygen. He is getting saline at 20 mL an hour. He apparently had an episode earlier this morning, which may have been a vasovagal episode. He apparently lost consciousness for about 6 seconds. He apparently was getting out of bed to have a bowel movement. He's feeling back to normal now. White count 11.4, hemoglobin 11.1, hematocrit 33, platelet count 140,000. Sodium 136, with a normal potassium, chloride, CO2, anion gap, BUN, and creatinine. Chest x-ray shows some atelectasis and a small effusion at the left lung base. Progress note dated 04/04/2022. 71-year-old male seen in room 264. He is postop day #3, status post two-vessel bypass grafting. He is on room air. He's not receiving any IV fluids. According to the cardiothoracic nurse, he may be discharged possibly tomorrow. White count 9.1, hemoglobin 10.5, hematocrit 32.3, and platelet count 235,000. Sodium 135, potassium 4.3, chlorides 103, CO2 24, BUN 21, and creatinine 1.0. Albumin 3.1. Chest x-ray shows improved aeration bilaterally, with persistent left lower lobe atelectasis, and small effusion. Progress note dated 04/05/2022. 71-year-old male seen in room 264. Today is postop day #4, status post off-pump 2 vessel bypass grafting. The patient is on room air. He's not receiving any IV fluids. He is likely to be discharged home today. He denies any pain or discomfort. He denies any shortness of breath. White count 8.2, hemoglobin 1 0.1, hematocrit 30.3, and platelet count 270,000. Sodium 135, potassium 4.1, chlorides 102, CO2 23, the 122, creatinine 1.09. Chest x-ray continues to show some atelectasis, and small effusion, at the left lung base. Overall, the chest x-ray is improved. Objective - Vital Signs Vital signs: Vital Signs Temp 98.9 F 04/05/22 08:00 Pulse 92 04/05/22 08:10 Resp 18 04/05/22 08:00 BP 120/58 04/05/22 08:00 Pulse Ox 93 L 04/05/22 08:00 FiO2 50 04/01/22 16:08 Intake & Output 04/04/22 04/05/22 04/05/22 18:59 06:59 18:59 Intake Total 873 360 Output Total 275 750 Balance 598 -390 Weight 99.8 kg Intake: Oral 873 360 Output: Chest Tube Drainage 0 Chest Tube Left Pleural/ 0 Mediastinal Urine 275 750 Other: Voiding Method Urinal Urinal Toilet # Voids 1 # Bowel Movements 0 ABP, PAP, CO, CI - Last Documented Arterial Blood Pressure 131/51 Pulmonary Artery Pressure 20/6 Cardiac Output 5.2 Cardiac Index 2.5 - Exam No acute distress, oriented 3. Currently on no supplemental oxygen. HEENT examination is grossly unremarkable. Neck supple. Full range of motion. No adenopathy thyromegaly or neck vein distention. Cardiovascular examination reveals regular rhythm rate. S1-S2 normal. No S3 or S4. No discernible murmur noted. Heart rate 92 bpm. Lungs reveal mostly clear breath sounds. Scattered rhonchi are noted. No wheezes or crackles. Breath sounds equal bilaterally. Room air saturation is 95 %. Abdomen soft bowel sounds are heard. No masses or tenderness. Extremities are intact. No cyanosis clubbing or edema. Skin is without rash or lesion. Neurologic examination is brief but nonfocal. - Labs CBC & Chem 7: 04/05/22 03:29 04/05/22 03:29 Labs: Abnormal Lab Results - Last 24 Hours (Table) 04/04/22 04/05/22 04/05/22 Range/Units 20:51 03:29 03:29 RBC 3.40 L (4.30-5.90) m/uL Hgb 10.1 L (13.0-17.5) gm/dL Hct 30.3 L (39.0-53.0) % Sodium 135 L (137-145) mmol/L BUN 22 H (9-20) mg/dL Glucose 108 H (74-99) mg/dL POC Glucose (mg/dL) 118 H (70-110) mg/dL 04/05/22 04/05/22 04/05/22 Range/Units 05:18 06:46 11:13 RBC (4.30-5.90) m/uL Hgb (13.0-17.5) gm/dL Hct (39.0-53.0) % Sodium (137-145) mmol/L BUN (9-20) mg/dL Glucose (74-99) mg/dL POC Glucose (mg/dL) 150 H 122 H 111 H (70-110) mg/dL Assessment and Plan Assessment: Postop day #4, off pump two-vessel bypass grafting, LEY to LAD to diagonal, exclusion of left atrial appendage, and intraoperative transesophageal echocardiogram. Routine postoperative ventilator management, S/P successful extubation on 03/10. History of hypertension. History of hyperlipidemia. History of gastroesophageal reflux disease. Plan: Plan dated 04/01/2022. The patient is seen in the intensive care unit. FiO2 was dropped from 100% to 50%, after the pO2 was found to be 277. Cardiac up at 6.9. Index is 3.3. The patient is on Cleveprex at 3 mg an hour, nitroglycerin at 5 mcg/m, and propofol at 25 mcg/kg/m. The patient's also receiving lactated Ringer's at 50 mL the patient will be extubated within the 6 hour window. Follow, make recommendations along the way. Post extubation, the patient will focus on deep breathing, coughing, and clearing of secretions, and hourly use of the incentive spirometer. Plan dated 04/02/2022. The patient is encouraged to deep breathe, cough, and clear secretions. We also encouraged the patient to use the incentive spirometer, every hour while awake. Labs, x-rays, medications are reviewed. Today's postop day #1. The patient appears to be doing reasonably well. He was extubated within the 6 hour window. We will continue to follow make recommendations. Prognosis is guarded. Plan dated 04/03/2022. The patient appears to be doing relatively well. He did have an episode earlier this morning which may have been a vasovagal episode. He was getting out of bed to have a bowel movement. She apparently lost consciousness for about 6 seconds. Currently, he's on 2 L. Labs, x-rays, and medications are reviewed. We told him to really work on his incentive spirometer, as he has some collapse and atelectasis at the left lung base. We will continue to follow make recommendations where appropriate. Plan dated 04/04/2022. Labs, x-rays, and medications are all reviewed. The patient may be discharged possibly tomorrow. He is on room air. No IV fluids. Chest tubes and mediastinal tubes are being removed. Labs, x-rays, and medications are all reviewed. Clinically, the patient's doing well. He is on room air. Is not receiving any IV fluids. He continues to work on the incentive spirometer. Plan dated 04/05/2022. The patient's labs, x-rays, and medications are reviewed. Is currently on room air. He's not receiving any IV fluids. Chest x-ray continues to show an improving pattern in the left lower lobe, although, there is still evidence of small amounts of fluid, and atelectasis. The patient should take the incentive spirometer home with him. Additional recommendations and suggestions are forthcoming. We will see him in the office postoperatively. He should do relatively well. Time with Patient: Less than 30
--- NOTE | 2022-04-05 12:51 | P.DS ---
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 Coronary artery disease with total occlusion of the left anterior descending coronary artery 2. Overall preserved left ventricular function 3. History of hypertension 4. History of hyperlipidemia, treated, cholesterol 126, LDL 70 5. Previous tobacco dependence, preoperative FEV1 81% of predicted 6. Positive infection December 2021, vaccinated and boosted 7. Osteoarthritis 8. Hearing disorder 9. GERD 10. Postoperative acute blood loss anemia, expected 12. Presyncopal event, likely vasovagal PRINCIPAL PROCEDURE: 1. Off-pump total arterial coronary artery bypass grafting using the left internal mammary artery to the diagonal coronary artery in a [id number] fashion, then to the left anterior descending coronary artery in an end-to-side fashion 2. Exclusion of the left atrial appendage using a 40 mm AtriClip 3. Intraoperative graft flow measurements using the [employer] system 4. Intraoperative transesophageal echocardiogram HISTORY OF PRESENT ILLNESS: This is a 71-year-old gentleman who follows on an outpatient basis with Dr. Wynne for primary care Dr. Montejo for cardiology. He had been worked up for a few months for fatigue and dyspnea on exertion. Echo stress test revealed what seemed to be inferior ischemia. His LV function was essentially preserved. He underwent heart catheterization which showed evidence of totally occluded collateralized left anterior descending artery with severe stenosis of the first diagonal artery, normal dominant right coronary artery and normal circumflex system. The LAD had ipsilateral and contralateral collateral flow. He did have an echo performed in January demonstrating ejection fraction 55-60% with moderate left ventricular hypertrophy, mild to moderate aortic regurgitation and mild mitral regurgitation. The patient was referred to Dr. Gonzalez from cardiothoracic surgery for recommendations regarding PCI versus CABG. He was recommended to undergo off-pump CABG. The usual perioperative course was discussed in detail with the patient and his family, all risks and benefits were explained, all questions were answered, and consent was obtained to proceed with surgery. The patient was scheduled for surgery at the earliest possible agreed-upon date. HOSPITAL COURSE: The patient was brought to the hospital on 04/01/2022, taken to the preoperative area, prepared in the usual fashion, and subsequently taken to the operating room where Dr. Gonzalez performed two-vessel off-pump CABG. Upon completion of surgery the patient was transferred to the cardiovascular intensive care unit where he was recovered and monitored hemodynamically. He was extubated, all lines, tubes, and drips were discontinued when appropriate, and transfer orders were placed for 3 S. cardiac stepdown unit, however there was no bed availability and the patient remained on ICU as a stepdown patient until discharge. His oxygen was titrated down, he continued to work with physical and occupational therapy, he was tolerating oral diet, his pain was controlled, and he was ready to be discharged to home with [facility] care on postoperative day #4. He received written and verbal instruction regarding his medications, activity restrictions, signs and symptoms requiring physician notification, and follow-up appointments. Patient Condition at Discharge: Stable Plan - Discharge Summary Discharge Rx Participant: No New Discharge Prescriptions: New Tamsulosin [Flomax] 0.4 mg PO PC-SUPPER #30 cap Metoprolol Tartrate [Lopressor] 50 mg PO BID #60 tab Sennosides-Docusate Sodium [Senokot-S] 2 each PO HS PRN tab PRN Reason: Constipation Acetaminophen Tab [Tylenol] 650 mg PO Q4HR PRN tab PRN Reason: Fever And/ Or Pain Clopidogrel [Plavix] 75 mg PO DAILY #30 tab Pantoprazole [Protonix] 40 mg PO AC-BRKFST #30 tab Continue Vit C/E/Zn/Coppr/Lutein/Zeaxan [Preservision Areds 2 Softgel] 1 each PO BID Naproxen Sodium [Aleve] 440 mg PO BID PRN PRN Reason: Pain Aspirin [Adult Low Dose Aspirin EC] 81 mg PO DAILY Ubidecarenone [Co Q-10] 100 mg PO DAILY Atorvastatin [Lipitor] 40 mg PO HS Discontinued atenoloL [Tenormin] 25 mg PO QAM Omeprazole [PriLOSEC] 20 mg PO QAM amLODIPine [Norvasc] 10 mg PO HS Nitroglycerin Sl Tabs [Nitrostat] 0.4 mg SUBLINGUAL Q5M PRN #25 tab PRN Reason: Chest Pain Discharge Medication List Vit C/E/Zn/Coppr/Lutein/Zeaxan [Preservision Areds 2 Softgel] 1 each PO BID 04/18/20 [History] Aspirin [Adult Low Dose Aspirin EC] 81 mg PO DAILY 08/24/20 [History] Naproxen Sodium [Aleve] 440 mg PO BID PRN 08/24/20 [History] Atorvastatin [Lipitor] 40 mg PO HS 03/26/22 [History] Ubidecarenone [Co Q-10] 100 mg PO DAILY 03/26/22 [History] Acetaminophen Tab [Tylenol] 650 mg PO Q4HR PRN tab 04/05/22 [Rx] Clopidogrel [Plavix] 75 mg PO DAILY #30 tab 04/05/22 [Rx] Metoprolol Tartrate [Lopressor] 50 mg PO BID #60 tab 04/05/22 [Rx] Pantoprazole [Protonix] 40 mg PO AC-BRKFST #30 tab 04/05/22 [Rx] Sennosides-Docusate Sodium [Senokot-S] 2 each PO HS PRN tab 04/05/22 [Rx] Tamsulosin [Flomax] 0.4 mg PO PC-SUPPER #30 cap 04/05/22 [Rx] Follow up Appointment(s)/Referral(s): Dominique Dumont NPC [Nurse Practitioner] - 04/11/22 1:00 pm (You will be seen in the surgeon's office behind the hospital in [facility], [address] Office phone number is ) Marvin Montejo MD [STAFF PHYSICIAN] - 04/12/22 9:15 am (Appointment is with [facility]) [facility] Esme MCINTOSH,Cardiac [NON-STAFF] - 4 Weeks (You will receive a phone call in approximately 4-6 weeks for evaluation for cardiac rehab) Abdirizak Wynne MD [Primary Care Provider] - 04/23/22 1:30 pm [facility] - ([facility] will call you to arrange a visit) Isai Gonzalez MD [STAFF PHYSICIAN] - 04/26/22 10:15 am Sen Loyd DO [Doctor of Osteopathic Medicine] - 04/30/22 10:15 am Ambulatory/Diagnostic Orders: Complete Blood Count w/diff [LAB.AMB] Time Frame: 3 Days, Location: None Selected Comprehensive Metabolic Panel [LAB.AMB] Time Frame: 3 Days, Location: None Selected Activity/Diet/Wound Care/Special Instructions: DISCHARGE INSTRUCTIONS: 1. No driving for 4 weeks, or until physician gives their ok. 2. The patient should sleep in their own bed, no medical bed needed. 3. Stairs are not an issue. If the bedroom is upstairs, it is advised that the patient go up at night and down in the morning for the first week. Go slowly, using handrail and take 1 step at a time. 4. NEWTON hose are to be worn for 30 days post surgery or until physician discontinues. 5. Heart hugger is to be worn 100% of the time until physician discontinues.(except when showering) 6. No lifting, pushing, or pulling more than 10 pounds for 12 weeks. The physician will advise of any restriction changes. 7. The patient is expected to continue the prescribed walking program. 8. Continue pain control per as needed orders. 9. Continue with incentive spirometry and splinting/heart hugger until otherwise directed by the physician. 10. Must shower daily using liquid antibacterial soap 11. Routine sternal incision care. No powders, lotions, ointments on incisions. No dressings are necessary on incisions unless they are draining. Dermabond tape is to remain on sternal incision until surgeon follow-up. 12. Please call surgeon/PETROPHYSICAL ENGINEER for temp greater than 101 F or purulent drainage from incisions. 13. You should weigh yourself daily, record and bring log with you to follow up appointments. 14. All prescriptions given by surgeon for 30 days. Refills need to be filled through seat covers trimmer/primary care physician. 15. A Red armband has been placed on the patient. It should be worn for 30 days post discharge from surgery and will be removed by the cardiac surgeons. If an ER visit is necessary, please make sure the number on the Red armband is called before going to ER. 16. You have been referred to and are expected to begin Cardiac Rehab in approximately 4-6 weeks. HOME HEALTH SERVICES TO PROVIDE: RN SKILLED HOME CARE SERVICES FOR POST-OP SURGICAL PATIENTS WITH THE FOLLOWING: Coronary Artery Bypass Surgery (CABG), Mitral Valve Replacement/Repair ( MVR), Aortic Valve Replacement/Repair (AVR) RN TO CONTINUE EDUCATION FROM ``ROAD TO A HEALTH HEART PATIENT EDUCATION MANUAL (GIVEN TO PATIENT IN THE HOSPITAL) MEDICATION RECONCILIATION WITH EDUCATION NEEDED ON FIRST HOME VISIT EMPHASIZE IMPORTANCE OF WEARING BREAST SUPPORT/HEART HUGGER ENCOURAGE USE OF INCENTIVE SPIROMETER 10 X EVERY HOUR WHILE AWAKE ENCOURAGE UTILIZATION OF LOWER EXTREMITY COMPRESSION STOCKINGS/NEWTON HOSE and ELEVATE LEGS ABOVE LEVEL OF HEART WHILE AT REST. ENCOURAGE AMBULATION 3-5x/day INCREASING TOLERATES, WHILE AVOIDING EXTREMES IN TEMPERATURE FREQUENCY: RN TO OPEN THE PATIENT WITHIN 24 HOURS OF DISCHARGE FROM THE HOSPITAL WITH TELEHEALTH INSTALLED AT [facility], RN TO VISIT 2-3 X A WEEK FOR 4 WEEKS ESTABLISHED BY PATIENT NEEDS. LABORATORY: CBC, CMP TO BE DRAWN ON THE THIRD DAY HOME, (RAN STAT) FAX RESULTS TO [phone]. TELEHEALTH PARAMETERS: WEIGHT: NOTIFY MD OF WEIGHT GAIN OF 2 LBS IN 24 HOURS OR 5 LBS IN ONE WEEK HR: NOTIFY MD OF HR <55 BPM OR HR>100 BPM BP: NOTIFY MD IF BP <90/55 OR BP>140/100 O2 SAT: NOTIFY MD IF PO2<93% ON ROOM AIR SEND TELEHEALTH REPORT TO LOAN OFFICER AND CARDIOVASCULAR SURGEON THE FIRST WEEK OF CARE AND THEN BI-WEEKLY. PLEASE ADDITIONALLY COMMUNICATE ANY ABNORMALS AND NEW FINDINGS TO THE SURGEONS OFFICE. Discharge Disposition: HOME WITH HOME HEALTH SERVICES
== END 2022-04-05 12:19 | disposition home health service (06) | DRG 235 ==
LOC: 2ORMAIN 05:34 → 2SICU 11:58
PROVIDERS: ADMIT Surgery; ATTEND Surgery
PROC: 02100Z3 Bypass Coronary Artery, One Artery from Coronary Artery, Open Approach (ICD-10-PCS; 2022-04-01)
PROC: 30243N0 Transfusion of Autologous Red Blood Cells into Central Vein, Percutaneous Approach (ICD-10-PCS; 2022-04-01)
PROC: 02L70CK Occlusion of Left Atrial Appendage with Extraluminal Device, Open Approach (ICD-10-PCS; 2022-04-01)
PROC: 4A0335C Measurement of Arterial Flow, Coronary, Percutaneous Approach (ICD-10-PCS; 2022-04-01)
PROC: 02100Z9 Bypass Coronary Artery, One Artery from Left Internal Mammary, Open Approach (ICD-10-PCS; principal; 2022-04-01 08:00)
PROC: 03B10ZZ Excision of Left Internal Mammary Artery, Open Approach (ICD-10-PCS; 2022-04-01 08:00)
DX: I25.10 Atherosclerotic heart disease of native coronary artery without angina pectoris (principal); J96.01 Acute respiratory failure with hypoxia; D62 Acute posthemorrhagic anemia; I11.9 Hypertensive heart disease without heart failure; I25.82 Chronic total occlusion of coronary artery; E78.5 Hyperlipidemia, unspecified; H91.90 Unspecified hearing loss, unspecified ear; R42 Dizziness and giddiness; R19.7 Diarrhea, unspecified; R55 Syncope and collapse; K21.9 Gastro-esophageal reflux disease without esophagitis; Z96.653 Presence of artificial knee joint, bilateral; Z98.61 Coronary angioplasty status; Z87.891 Personal history of nicotine dependence; Z79.899 Other long term (current) drug therapy; Z79.82 Long term (current) use of aspirin; Z86.16 Personal history of COVID-19; Z91.048 Other nonmedicinal substance allergy status
CPT/HCPCS: 71045; 71046; 80048; 80053; 82330; 82805; 83036; 83735; 84132; 85025; 85027; 85520; 85610; 85730; 86850; 86891; 86900; 86901; 86920; 94002; 94640

== ENCOUNTER → 2022-09-19 | Outpatient (CLI) | payer MEDICARE ==
--- NOTE | 2022-09-19 11:22 | US ---
EXAMINATION TYPE: US prostate transrectal DATE OF EXAM: 09/19/2022 COMPARISON: NONE CLINICAL HISTORY: N40.2 PROSTATE NODULE. Doctor feels a chickpea size lump This examination was performed using the transrectal probe. EXAM MEASUREMENTS: Gland Size: 6.3 x 3.7 x 5.3cm Volume: 65.11 ml Predicted PSA: 7.81 Actual PSA (if available):not available Possible hypoechoic area right apex = 1.2 x 0.8 x 1.4cm IMPRESSION: Hypoechoic area in the right and slightly left of midline peripheral zone. Further evaluation with MR I prostate protocol is recommended. Predicted PSA = volume x 0.12 ng/ml Calculated Volume = 0.5236 x L x W x H
== END | disposition home or self-care (01) ==
LOC: RADUSWWP 10:03
PROVIDERS: ATTEND Internal Medicine
DX: N40.2 Nodular prostate without lower urinary tract symptoms (principal)
CPT/HCPCS: 76872

== ENCOUNTER → 2022-10-10 | Outpatient (CLI) | payer MEDICARE ==
--- NOTE | 2022-10-10 11:31 | MR ---
EXAMINATION TYPE: MR Prostate wo/w con DATE OF EXAM: 10/10/2022 COMPARISON: Prostate ultrasound September 19, 2022 INDICATION: Abnormal US . Prostate nodule per ultrasound order. Abnormal physical exam by PSA: 2.7 ng/ml on September 05, 2022 Recent Biopsy and Date: None Pathology Report (If Applicable): n/a TECHNIQUE: Examination was performed using a 3T MRI without an endorectal coil. Multiparametric imaging was perf ormed with T2 mutliplanar sequences, axial diffusion weighted imaging and dynamic contrast enhanced i maging, utilizing 10 mL intravenous Gadavist gadolinium contrast. FINDINGS: PROSTATE VOLUME: 5.4 cm SI x 4.2 cm AP x 5.1 cm LR Vol= 60.6 cc PSA DENSITY: 0.04 ng/ml/cc Enlarged prostate gland. Peripheral zone shows areas of slightly diminished signal on ADC mapping wit hout at least moderate diminished signal or mild increased signal on diffusion-weighted imaging parti cularly in the right aspect where there are areas of T2 hypointensity. The central transitional zone shows no obvious suspicious hypoechoic areas. No of obvious suspicious lesion in the apex at the area of concern on ultrasound and physical exam. Seminal vesicles are symmetric and within normal limits axial image 28. Bladder shows mild wall thick ening without abnormal trabeculation. Osseous structures are intact. Few diverticula in the sigmoid colon are seen. There is susceptibility artifact in the right groin region noted. Visualized osseous structures are intact. IMPRESSION: Enlarged prostate consistent with BPH. A focus of clinically significant cancer is not identified. Highest Assessment Category: 2 MRI Stage: T0 N0 M0 based on review of pelvic images. False negative rates for MRI range from 5-20% depending on risk profile. Assessment Categories: 1 ? Very low (clinically significant cancer is highly unlikely to be present) 2 ? Low (clinically significant cancer is unlikely to be present) 3 ? Intermediate (the presence of clinically significant cancer is equivocal) 4 ? High (clinically significant cancer is likely to be present) 5 ? Very high (clinically significant cancer is highly likely to be present)
== END | disposition home or self-care (01) ==
LOC: RADMRIMAIN 08:52
PROVIDERS: ATTEND Internal Medicine
DX: N40.2 Nodular prostate without lower urinary tract symptoms (principal)
CPT/HCPCS: 72197; A9585

== ENCOUNTER → 2023-06-04 | Outpatient (CLI) | payer MEDICARE ==
[2023-06-04 15:01] LABS: Basophils # (A) 0.02 X 10*3/uL (0.00-0.10); Basophils % (A) 0.4 %; Eosinophils # (A) 0.23 X 10*3/uL (0.04-0.35); Eosinophils % (A) 4.3 %; HCT 43.9 % (39.6-50.0); HGB 14.5 g/dL (13.0-17.0); Lymphocytes # (A) 1.34 X 10*3/uL (0.90-5.00); Lymphocytes % (A) 25.2 %; MCH 28.5 pg (27.0-32.0); MCV 86.4 FL (80.0-97.0); Monocytes # (A) 0.43 X 10*3/uL (0.20-1.00); Monocytes % (A) 8.1 %; NRBC Per 100 WBC 0 X 10*3/uL (0.00-0.01); Neutrophils # (A) 3.29 X 10*3/uL (1.80-7.70); Neutrophils % (A) 61.8 %; Platelet Count 168 X 10*3/uL (140-440); RBC 5.08 X 10*6/uL (4.40-5.60); RDW 12.9 % (11.5-14.5); WBC 5.32 X 10*3/uL (4.50-10.00)
[2023-06-04 15:14] LABS: Blood Urea Nitrogen 23.6 mg/dL (9.0-27.0); Calcium 9.5 mg/dL (8.7-10.3); Carbon Dioxide 23.4 mmol/L (21.6-31.8); Chloride 106 mmol/L (96-109); Glucose 100 mg/dL (70-110); Potassium 4.1 mmol/L (3.5-5.5); Sodium 140 mmol/L (135-145)
[2023-06-04 20:13] LABS: Appearance,Urine Clear (Clear); Bilirubin,Urine Negative (Negative); Blood,Urine Negative (Negative); Color,Urine Yellow (Yellow); Ketones,Urine Trace (Negative); Nitrite,Urine Negative (Negative); Specific Gravity,Urine 1.026 (1.001-1.030)
== END | disposition home or self-care (01) ==
LOC: LABPAT 10:20
PROVIDERS: ATTEND Urology
DX: Z01.812 Encounter for preprocedural laboratory examination (principal); C61 Malignant neoplasm of prostate; R31.29 Other microscopic hematuria
CPT/HCPCS: 80048; 81003; 85025; 86850; 86900; 86901; 87086

== ENCOUNTER 2023-06-11 09:38 | Day surgery (SDC) | payer MEDICARE ==
--- NOTE | 2023-06-10 11:28 | P.HPIHPCON ---
History of Present Illness H&P Date: 06/10/23 Chief Complaint: prostate cancer This is a 73 yo male with hx of zach 7 (4+3) prostate cancer. Option of robotic radical prostatectomy versus radiation therapy was discussed with him in detail. He agreed to proceed with a robotic radical prostatectomy, aware of the risk which includes but not limited to bleeding, infection, urinary incontinence, erectile dysfunction, injury to nearby organs. Risk of cancer recurrence, potential of needing additional treatment and the need for postoperative surveillance also discussed. Risk of anesthesia was also discussed. He understood all the risk and agreed to proceed Consent for Procedure: I have explained the operation/procedure to the patient, including the risks, benefits, side effects, alternative therapies (including not receiving the proposed treatment or service), the likelihood of the patient achieving his/her goals, and potential recuperation problems for the procedure/sedation/analgesia, as well as any blood products, if indicated. I also explained to the patient the risks, benefits and side effects of the alternatives, as well as the risks related to not receiving the proposed procedure, care, treatment, or services. Past Medical History Past Medical History: Cancer, Hearing Disorder / Deafness, Hyperlipidemia, Hypertension, Osteoarthritis (OA), Sleep Apnea/CPAP/BIPAP Additional Past Medical History / Comment(s): limited ROM rt shoulder, HISTORY OF KIDNEY STONES 2010. unable to use CPAP, new dx. prostate cancer History of Any Multi-Drug Resistant Organisms: None Reported Past Surgical History: Coronary Bypass/CABG, Heart Catheterization, Orthopedic Surgery Additional Past Surgical History / Comment(s): rt shoulder repair, Andrea Acromioplasty of Shoulders; EXC SALIVARY GLAND STONE. Arthoscopy left knee. EGD, COLONOSCOPY 04/15/16,andrea knee replacements. off pump double bypass 2021 Past Anesthesia/Blood Transfusion Reactions: Postoperative Nausea & Vomiting (PONV) Additional Past Anesthesia/Blood Transfusion Reaction / Comment(s): nausea with Anesthesia Smoking Status: Former smoker - Past Family History Father Family Medical History: Cancer Medications and Allergies Home Medications Medication Instructions Recorded Confirmed Type Vit C/E/Zn/Coppr/Lutein/Zeaxan 1 each PO BID 04/18/20 06/04/23 History [Preservision Areds 2 Softgel] Aspirin [Adult Low Dose Aspirin EC] 81 mg PO DAILY 08/24/20 06/04/23 History Naproxen Sodium [Aleve] 440 mg PO BID PRN 08/24/20 06/04/23 History Acetaminophen Tab [Tylenol] 650 mg PO Q4HR PRN tab 04/05/22 06/04/23 Rx Metoprolol Tartrate [Lopressor] 50 mg PO BID #60 tab 04/05/22 06/04/23 Rx Cholecalciferol [Vitamin D3 (25 50 mcg PO DAILY 06/04/23 06/04/23 History Mcg = 1000 Iu)] Losartan Potassium 50 mg PO BID 06/04/23 06/04/23 History hydroCHLOROthiazide [Hydrodiuril] 25 mg PO DAILY 06/04/23 06/04/23 History Relaxium Sleep Aid 1 tab PO HS PRN 06/06/23 06/06/23 History Allergies Allergy/AdvReac Type Severity Reaction Status Date / Time adhesive tape AdvReac skin Verified 06/04/23 11:49 blister Surgical - Exam - General no distress, no pain - Eyes normal ocular movement, no pale - ENT normal nares, normal mucosa - Respiratory normal expansion, normal respiratory effort - Abdomen Abdomen: soft, non tender Assessment and Plan Assessment: OR for robotic radical prostatectomy with pelvic lymph node dissection
[~2023-06-11 09:38] MED LIST changes: -ALBUMIN HUMAN 25% 50 ML IV ONE; -ALBUMIN HUMAN 5% 500 ML IVPB ONE; -ASPIRIN 325 MG TAB PO ONE; -ATORVASTATIN 10 MG TAB PO ONE; -CALCIUM CHLORIDE 100 MG/ML 10 ML SYRINGE IV ONE; -CHLORHEXIDINE GLUCONATE 15 ML CUP MUCOUS MEM ONE; -CLEVIDIPINE BUTYRATE 25 MG in EMPTY BAG 1 BAG IV ONE; +DEXAMETHASONE SOD PHOSPHATE 4 MG/ML 1 ML VIAL IV ONE; -ELECTROLYTE-A SOLUTION 1,000 ML with POTASSIUM CHLORIDE 100 MEQ, MAGNESIUM SULFATE 16 M... IV ONE; -ELECTROLYTE-A SOLUTION 1,000 ML with POTASSIUM CHLORIDE 40 MEQ, MAGNESIUM SULFATE 16 ME... IV ONE; -HEPARIN SODIUM 1,000 UN/ML (10ML VL) IV ONE; -HEPARIN SODIUM,PORCINE 5,000 UNIT in SODIUM CHLORIDE 0.9% 500 ML 500 ML IV ONE; +HEPARIN SODIUM,PORCINE 5,000 UNIT/ML 1 ML VIAL SQ PRN; +HYDROmorphone 0.5 MG/0.5 ML SYRINGE IVP PRN; -INSULIN REGULAR 100 UNIT in SODIUM CHLORIDE 0.9% 100 ML IV ONE; -LACTATED RINGERS 1,000 ML IV ONE; +LIDOCAINE 1% (10MG/ML) FOR IV START INTRADERMA PRN; -MAGNESIUM SULFATE 16.24 MEQ in EMPTY SYRINGE 1 SYR IV ONE; -MANNITOL 25% 12.5 GM/50 ML VIAL IV ONE; -METOPROLOL TARTRATE 12.5 MG TAB PO ONE; -MUPIROCIN 2% OINT 22 GM TUBE NASAL ONE; -NITROGLYCERIN SL TABS 0.4 MG TAB SUBLINGUAL ONE; -NITROGLYCERIN-D5W PMX 25 MG/250 ML BTL IV ONE; -NITROGLYCERIN-D5W PMX 50 MG in DEXTROSE/WATER 1 250ML.BAG IV ONE; -NOREPINEPHRINE 4 MG in SODIUM CHLORIDE 0.9% 250 ML IV ONE; +ONDANSETRON 4 MG/2 ML VIAL IVP ONE; -PAPAVERINE 360 MG in SODIUM CHLORIDE 0.9% 90 ML IV ONE; -PHENYLEPHRINE 10 MG/ML VIAL IV ONE; -PHENYLEPHRINE 40 MG in SODIUM CHLORIDE 0.9% 250 ML IV ONE; -PROTAMINE SULFATE 10 MG/ML 25 ML VIAL IV ONE; -PROTAMINE SULFATE 250 MG in EMPTY BAG 1 BAG IV ONE; -SODIUM BICARB 8.4% 50 ML SYR (1 MEQ/ML) IV ONE; -SODIUM CHLORIDE 0.9% 1,000 ML IV ONE; -TRANEXAMIC ACID 2,000 MG in SODIUM CHLORIDE 0.9% 80 ML IV ONE; -ceFAZolin 1,000 MG in SODIUM CHLORIDE 0.9% IRRIGATIO 1,000 ML IRRIGATION ONE; -propofoL 1,000 MG/100 ML VIAL IV ONE
[2023-06-11] MEDS: LACTATED RINGERS 1,000 ML IV SCH ×2 (10:22→10:28)
[2023-06-11] MEDS ORDERED: ONDANSETRON 4 MG/2 ML VIAL IVP ONE (10:48)
[2023-06-11] MEDS ORDERED: DEXAMETHASONE SOD PHOSPHATE 4 MG/ML 1 ML VIAL IVP ONE (10:48)
[2023-06-11] MEDS ORDERED: FAMOTIDINE 20 MG/2 ML VIAL IVP ONE (11:01)
[2023-06-11] MEDS ORDERED: SUCCINYLCHOLINE CHLORIDE 200 MG/10 ML VIAL IV ONE (12:00)
[2023-06-11] MEDS ORDERED: HYDROmorphone (PF) 1 MG/ML ONE (12:00)
[2023-06-11] MEDS ORDERED: fentaNYL (PF) 50 MCG/ML 2 ML AMP ONE (12:00)
[2023-06-11] MEDS ORDERED: PHENYLEPHRINE 10 MG/ML VIAL ONE (12:00)
[2023-06-11] MEDS ORDERED: LIDOCAINE 1% INJ 10MG/ML (20 ML MDV) ONE (12:00)
[2023-06-11] MEDS ORDERED: PROPOFOL 10 MG/ML 20 ML VIAL IV ONE (12:00)
[2023-06-11] MEDS ORDERED: GLYCOPYRROLATE 0.2 MG/ML 2 ML VIAL ONE (12:00)
[2023-06-11] MEDS ORDERED: ROCURONIUM 10 MG/ML (5 ML VIAL) IV ONE (12:00)
[2023-06-11] MEDS ORDERED: ePHEDrine 50 MG/ML 1 ML VIAL ONE (12:00)
[2023-06-11] MEDS ORDERED: MIDAZOLAM 2 MG/2 ML VIAL ONE (12:00)
[2023-06-11] MEDS ORDERED: NEOSTIGMINE 1 MG/ML 10 ML VIAL ONE (12:00)
[2023-06-11] MEDS ORDERED: BUPIVACAINE (PF) 0.25% 30 ML VIAL SQ ONE ×2 (13:08→16:29)
[2023-06-11] MEDS ORDERED: ACETAMINOPHEN TAB 325 MG TAB PO PRN (15:33)
[2023-06-11] MEDS ORDERED: ONDANSETRON 4 MG/2 ML VIAL IVP PRN (15:34)
[2023-06-11] MEDS ORDERED: HYDROmorphone 1 MG/ML 1 ML SYRINGE IVP PRN (15:34)
[2023-06-11] MEDS ORDERED: IV FLUID CONTINUATION 1,000 ML IV ONE (16:22)
--- NOTE | 2023-06-11 17:17 | P.OP ---
Date of Procedure: 06/11/23 Preoperative Diagnosis: Prostate cancer Postoperative Diagnosis: Same Procedure(s) Performed: Robotic-assisted laparoscopic radical prostatectomy with bilateral pelvic lymph node dissection Implants: none Anesthesia: DANNYA Surgeon: Elvis Sims Estimated Blood Loss (ml): 150 Pathology: other (prostate, bilateral seminal vesicle, bilateral pelvic lymph nodes) Condition: stable Disposition: PACU Indications for Procedure: This is a 73 yo male with hx of zach 7 (4+3) prostate cancer. Option of robotic radical prostatectomy versus radiation therapy was discussed with him in detail. He agreed to proceed with a robotic radical prostatectomy, aware of the risk which includes but not limited to bleeding, infection, urinary incontinence, erectile dysfunction, injury to nearby organs. Risk of cancer recurrence, potential of needing additional treatment and the need for postoperative surveillance also discussed. Risk of anesthesia was also discussed. He understood all the risk and agreed to proceed Description of Procedure: After preoperative antibiotics were started, the patient was taken to the operating room. Anesthesia was induced and the patient was placed in a supine position, with adequate padding of the pressure points, shoulders, back, legs and arms. He was then prepped and draped in the standard fashion. A critical pause was performed using two patient identifiers. A 16F martinez catheter was placed to gravity drainage. A pneumo-peritoneum was created with placement of a Veress needle to 20 mm Hg without complication, and a 8 Fr trocar was placed above the umbillicus. Under direct vision a 8mm robotic ports was placed lateral to each rectus slightly below the camera port. The left iliac fossa 8mm port was placed. The right assistant teacher right iliac fossa 12mm port and right paramedian 5mm portwere placed. After the patient was placed in the trendelenberg position, the robot was then docked to the 8mm robotic ports and then each robotic arm and tower was checked in relation to the patient's legs and hands to avoid inadvertent compression. The peritoneal cavity was inspected. An inverted U-shaped incision began laterally to the left medial umbilical ligament and extended high across the midline to the right umbilical ligament. The limbs of the "U" extended to the level of the vasa on both sides. We next developed the preperitoneal space and the space of Retzius. Cautery was used to dissected the bladder away from the prostate. After the anterior bladder neck was incised and the bladder entered the the posterior bladder neck was exposed and the ureteral orifces identified. The posterior bladder neck was then incised and dissected away from the prostate. The vas and the seminal vesicles were now exposed and dissected to their insertions into the prostate and were not spared. The posterior layer of the Denonvillier's fascia was incised to enter miriam the plane between prostate and perirectal fat. Of note a long the right side of the apex of the prostate was stuck to the rectum. At this point attention was carried to controlling the pedicle. Each lateral pedicle was controlled with clips and cautery for hemostasis. No nerve preservation was performed on the right, partial nerve preservation was performed on the left. At the level of the apex there was evidence of extra prostatic extension. With evidence of invasion into the urethra and was also abutting the rectum. At this point I switched to the monopolar scissors, I did dissect off the nodular tissue off of the rectum sharply. I was able to also dissect with no injury to the sphincter. Along the urethral margin additional tissue was sent for frozen section and that came back negative for carcinoma. But of note posteriorly I could not remove any additional tissue without risking entry into the rectum thus no additional tissue was excised. The puboprostatic ligament was incised where it inserted into the apex of the prostate and a plane between urethra and dorsal venous complex developed to expose the anterior urethral surface. The anterior wall of the urethra was transected with the cut setting a few millimeters distal to the apex of the prostate. The dorsal vein was ligated using 3-0 V lock bilateral obturator and external iliac lymph node packets were carefully dissected after careful visualization of the hypogastric artery and obturator nerve. There was careful attention paid to hemostasis with judicious use of cautery. The urethrovesical anastomosis was performed . the posterior denovillers was reapproximated using 3-0 V lock. A9 and 6 inch 3-0 V-Lock suture was used to anastomose the urethra and bladder, starting at the 6:00 posterior position. Mucosa was secured in every stitch, to ensure a mucosa to mucosa anastomosis. The stitch was regularly cinched and the anastomosis tightened. Care was taken to not violate the ureteral orifices. The Martinez catheter was advanced, the bladder filled, and the anastomosis was tested, as described above. Anastomsis was watertight at 200 mL The periumbilical fascia was closed with 1-0-PDS suture in figure of eight fashion. All ports were closed with a subcuticular 4-0 monocryl and Dermabond. Sponge, instrument, and needle counts were correct at the end of the case x2. All specimens including prostate and lymph nodes were sent to pathology for diagnosis and will be available in a week. The patient tolerated the surgery well and without complication. He awoke without difficulty and was taken to the recovery room in stable condition
[2023-06-11] MEDS: DEXTROSE 5%-0.45% NACL 1,000 ML IV SCH ×2 (18:20→23:15)
[2023-06-11] MEDS: HYDROcodone/APAP 5-325MG 1 EACH TAB PO PRN ×2 (18:51→23:16)
[2023-06-11] MEDS: KETOROLAC 15 MG/ML 1 ML VIAL IVP SCH ×2 (18:57→23:15)
[2023-06-11] MEDS: METOPROLOL TARTRATE 50 MG TAB PO SCH (20:08)
[2023-06-11] MEDS: HEPARIN SODIUM,PORCINE 5,000 UNIT/ML 1 ML VIAL SQ SCH (20:08)
[2023-06-11] MEDS: LOSARTAN 50 MG TAB PO SCH (20:09)
[2023-06-12] MEDS: KETOROLAC 15 MG/ML 1 ML VIAL IVP SCH ×2 (04:52→11:19)
[2023-06-12] MEDS: HYDROcodone/APAP 5-325MG 1 EACH TAB PO PRN ×2 (04:56→09:14)
[2023-06-12] MEDS: HEPARIN SODIUM,PORCINE 5,000 UNIT/ML 1 ML VIAL SQ SCH ×2 (04:56→11:19)
[2023-06-12 05:02] LABS: Glucose,Whole Blood 112 mg/dL (70-110)
[2023-06-12] MEDS: DEXTROSE 5%-0.45% NACL 1,000 ML IV SCH (06:49)
[2023-06-12 08:40] VITALS: RESP 19; TEMP 98.1
[2023-06-12] MEDS ORDERED: hydroCHLOROthiazide 25 MG TAB PO SCH (09:00)
[2023-06-12] MEDS ORDERED: CHOLECALCIFEROL 25 MCG (1000 IU) TABLET PO SCH (09:00)
[2023-06-12] MEDS: LOSARTAN 50 MG TAB PO SCH (09:14)
[2023-06-12] MEDS: METOPROLOL TARTRATE 50 MG TAB PO SCH (09:14)
[2023-06-12 09:28] VITALS: BP 116/68; PULSE 67
--- NOTE | 2023-06-12 17:36 | P.DS ---
Providers Attending physician: Elvis Sims MD Primary care physician: Abdirizak Wynne [facility] Course: This is a 73-year-old male with history of prostate cancer. Underwent a robotic radical prostatectomy on June 11. Please see op note dated 06/11 for surgery detail. Patient was admitted to the hospital postoperatively. He did well in the postoperative period. He was discharged home on postop day #1, at time of discharge she was tolerating a diet, ambulating, pain was controlled Plan - Discharge Summary Discharge Rx Participant: No New Discharge Prescriptions: New Ciprofloxacin HCl [Cipro] 250 mg PO Q12HR #6 tablet Ketorolac [Toradol] 10 mg PO Q6HR PRN #15 tab PRN Reason: Pain HYDROcodone/APAP 5-325MG [[place] 5-325] 1 - 2 tab PO Q6HR PRN #6 tab PRN Reason: Pain HYDROcodone/APAP 5-325MG [[place] 5-325] 1 - 2 tab PO Q6HR PRN #6 tab PRN Reason: Pain No Action Vit C/E/Zn/Coppr/Lutein/Zeaxan [Preservision Areds 2 Softgel] 1 each PO BID Naproxen Sodium [Aleve] 440 mg PO BID PRN PRN Reason: Pain Aspirin [Adult Low Dose Aspirin EC] 81 mg PO DAILY Metoprolol Tartrate [Lopressor] 50 mg PO BID #60 tab Acetaminophen Tab [Tylenol] 650 mg PO Q4HR PRN tab PRN Reason: Fever And/ Or Pain Cholecalciferol [Vitamin D3 (25 Mcg = 1000 Iu)] 50 mcg PO DAILY Losartan Potassium 50 mg PO BID hydroCHLOROthiazide [Hydrodiuril] 25 mg PO DAILY Relaxium Sleep Aid 1 tab PO HS PRN PRN Reason: Insomnia Discharge Medication List Vit C/E/Zn/Coppr/Lutein/Zeaxan [Preservision Areds 2 Softgel] 1 each PO BID 04/18/20 [History] Aspirin [Adult Low Dose Aspirin EC] 81 mg PO DAILY 08/24/20 [History] Naproxen Sodium [Aleve] 440 mg PO BID PRN 08/24/20 [History] Acetaminophen Tab [Tylenol] 650 mg PO Q4HR PRN tab 04/05/22 [Rx] Metoprolol Tartrate [Lopressor] 50 mg PO BID #60 tab 04/05/22 [Rx] Cholecalciferol [Vitamin D3 (25 Mcg = 1000 Iu)] 50 mcg PO DAILY 06/04/23 [History] Losartan Potassium 50 mg PO BID 06/04/23 [History] hydroCHLOROthiazide [Hydrodiuril] 25 mg PO DAILY 06/04/23 [History] Relaxium Sleep Aid 1 tab PO HS PRN 06/06/23 [History] Ciprofloxacin HCl [Cipro] 250 mg PO Q12HR #6 tablet 06/12/23 [Rx] HYDROcodone/APAP 5-325MG [[place] 5-325] 1 - 2 tab PO Q6HR PRN #6 tab 06/12/23 [Rx] HYDROcodone/APAP 5-325MG [[place] 5-325] 1 - 2 tab PO Q6HR PRN #6 tab 06/12/23 [Rx] Ketorolac [Toradol] 10 mg PO Q6HR PRN #15 tab 06/12/23 [Rx] Patient Instructions/Handouts: Yates Catheter Placement and Care (DC), Yates Catheter Removal (DC), Robot Assisted Laparoscopic Prostatectomy (DC) Discharge Disposition: HOME SELF-CARE
== END 2023-06-12 12:45 | disposition home or self-care (01) ==
LOC: OR 09:38 → 4SSUR 16:33 → OR 06-12 12:45
PROVIDERS: ATTEND Urology
DX: C61 Malignant neoplasm of prostate (principal); I10 Essential (primary) hypertension; E78.5 Hyperlipidemia, unspecified; M19.90 Unspecified osteoarthritis, unspecified site; G47.33 Obstructive sleep apnea (adult) (pediatric); Z98.890 Other specified postprocedural states; Z96.653 Presence of artificial knee joint, bilateral; Z87.891 Personal history of nicotine dependence; Z79.82 Long term (current) use of aspirin; Z79.899 Other long term (current) drug therapy
CPT/HCPCS: 38570; 55866; S2900; 88305; 88307; 88309; 88331; 88344

== ENCOUNTER → 2023-07-21 | Outpatient (CLI) | payer MEDICARE | END | disposition home or self-care (01) | LOC: LABWHC1 09:12 | PROVIDERS: ATTEND Urology | DX: C61 Malignant neoplasm of prostate (principal) | CPT/HCPCS: 36415; 84153 ==

== ENCOUNTER → 2023-08-28 | Outpatient (CLI) | payer MEDICARE ==
[2023-08-28 11:40] LABS: ALT 19 U/L (10-49); AST 14 U/L (14-35); Chol/HDL Ratio 3.22 Ratio; LDL Cholesterol,Calculated 33.6 mg/dL (0.0-131.0)
== END | disposition home or self-care (01) ==
LOC: LABWHC1 07:55
PROVIDERS: ATTEND Nurse Practitioner Adult Health
DX: E78.2 Mixed hyperlipidemia (principal)
CPT/HCPCS: 36415; 80061; 84450; 84460

== ENCOUNTER → 2024-05-20 | Outpatient (CLI) | payer MEDICARE ==
[2024-05-20 15:30] LABS: ALT 21 U/L (10-49); AST 19 U/L (14-35); Albumin 4.1 g/dL (3.8-4.9); Albumin/Globulin Ratio 1.78 Ratio (1.60-3.17); Alkaline Phosphatase 65 U/L (41-126); BUN/Creat Ratio 16.33 Ratio (12.00-20.00); Blood Urea Nitrogen 19.6 mg/dL (9.0-27.0); Calcium 9.5 mg/dL (8.7-10.3); Carbon Dioxide 27.7 mmol/L (21.6-31.8); Chloride 104 mmol/L (96-109); Chol/HDL Ratio 3.69 Ratio; Globulin 2.3 g/dL (1.6-3.3); Glucose 100 mg/dL (70-110); LDL Cholesterol,Calculated 50.8 mg/dL (0.0-131.0); Sodium 141 mmol/L (135-145); Total Bilirubin 0.5 mg/dL (0.3-1.2); Total Protein 6.4 g/dL (6.2-8.2)
== END | disposition home or self-care (01) ==
LOC: LABWHC1 08:35
PROVIDERS: ATTEND Nurse Practitioner Adult Health
DX: I10 Essential (primary) hypertension (principal); E78.2 Mixed hyperlipidemia
CPT/HCPCS: 36415; 80053; 80061

== ENCOUNTER → 2024-12-14 | Outpatient (CLI) | payer MEDICARE ==
[2024-12-14 07:04] LABS: African American GFR (CKD) 85 (>60 ml/min/1.73 sqM); Blood Urea Nitrogen 22 mg/dL (9-20); Non-African American GFR(CKD) 73 (>60 ml/min/1.73 sqM)
--- NOTE | 2024-12-14 08:40 | CT ---
EXAMINATION TYPE: CT abdomen pelvis w con CT DLP: 1762.9 mGycm, Automated exposure control for dose reduction was used. DATE OF EXAM: 12/14/2024 8:22 AM COMPARISON: CT abdomen pelvis 10/27/2018 CLINICAL INDICATION:Male, 74 years old with history of K40.90 R INGUINAL HERNIA; right inguinal herni a TECHNIQUE: Standard CT of the abdomen and pelvis following the administration of 100 cc of Isovue 3 00 IV contrast material and oral contrast. Coronal and sagittal reformats were performed. FINDINGS: LOWER CHEST: Cardiomegaly. Sternotomy wires. Minimal dependent right lower lobe subsegmental atelecta sis. Right gynecomastia. ABDOMEN LIVER: Unremarkable GALLBLADDER AND BILE DUCTS: Unremarkable. PANCREAS: Unremarkable. SPLEEN: Unremarkable. ADRENAL GLANDS: Unremarkable. KIDNEYS AND URETERS: No evidence of hydronephrosis. The kidneys enhance symmetrically. No left renal calculi. Nonobstructing right renal upper pole 3 mm calculus. Contrast is demonstrated within both co llecting systems and proximal ureters on the delayed phase. PELVIS BLADDER: Underdistended with the bladder dome extending into the a right inguinal hernia. REPRODUCTIVE: Prostate gland is surgically absent. ABDOMEN & PELVIS STOMACH AND BOWEL: The stomach appears unremarkable. Tiny periampullary duodenal diverticulum.Distal colonic diverticulosis without evidence for acute diverticulitis. No focal bowel wall thickening or s urrounding inflammatory changes. Enteric contrast is reaches the descending colon. The appendix is wi thin normal limits. No evidence of bowel obstruction. PERITONEUM: No evidence of pneumoperitoneum or free fluid. VASCULATURE: Mild atherosclerotic calcifications are present throughout the abdominal aorta and its b ranches. No evidence of aortic aneurysm. MUSCULOSKELETAL: No acute osseous abnormalities. Degenerative changes of bilateral SI joints with ant erior bridging. DISH of the lower thoracic spine. LYMPH NODES: No evidence for lymphadenopathy. SOFT TISSUE/ABDOMINAL WALL: Small fat filled left indirect inguinal hernia. Similar from prior exam. Moderate size right indirect inguinal hernia containing fat and a portion of the urinary bladder dome . This is increased from prior exam with new involvement of the urinary bladder dome. No surrounding fat stranding or free fluid. Small left periumbilical hernia containing fat and small mesenteric vess els. Defect measures 1.2 cm in diameter. Similar from prior exam. IMPRESSION: 1. No acute abdominal/pelvic process. 2. Moderate size right indirect inguinal hernia containing fat and a portion of the urinary bladder d ome. No inflammatory changes identified. 3. Small fat filled left indirect inguinal hernia. 4. Small left periumbilical hernia containing fat and small mesenteric vessels. 5. Colonic diverticulosis without evidence for acute diverticulitis. 6. Nonobstructing right renal calculus. 7. Prostatectomy changes. [facility], , 12/14/2024 8:38 AM
== END | disposition home or self-care (01) ==
LOC: RADCTMAIN 06:23
PROVIDERS: ATTEND Internal Medicine
DX: N20.0 Calculus of kidney (principal); K40.90 Unilateral inguinal hernia, without obstruction or gangrene, not specified as recurrent; K42.9 Umbilical hernia without obstruction or gangrene; K57.30 Diverticulosis of large intestine without perforation or abscess without bleeding; Z90.79 Acquired absence of other genital organ(s)
CPT/HCPCS: 82565; 84520; 74177; 36415; Q9967